=== PATIENT | male | born 1965 | race Caucasian/White ===

== ENCOUNTER 2020-01-14 10:21 | Emergency (ER) | payer OTHER, SELFPAY ==
[2020-01-14 10:32] VITALS: BMI 25.7
[2020-01-14 10:36] VITALS: BP 164/96; PULSE 84; RESP 18; TEMP 37; O2SAT 94
[2020-01-14 10:48] VITALS: O2SAT 94
--- NOTE | 2020-01-14 12:08 | W.ED.GENADLT ---
HPI - General Adult General: Chief complaint: General Medical Stated complaint: etoh/asking for help Time Seen by Provider: 01/14/20 11:04 History of Present Illness: HPI narrative: 54-year-old male into the emergency department with concerns of alcohol abuse. He wants to seek inpatient treatment for his alcohol abuse. He has had longstanding alcoholism he drinks 1 to 2 pints of vodka daily. He is done so for quite some time he is homeless and has had a DUI and readily admits that his life is in shambles due to his alcohol abuse. His last drink was this morning. He had quite a bit of vodka. Associated symptoms: Reports nausea; Deny chest pain, dyspnea, headache(s) or vomiting Review of Systems General: Reports: 10 or more systems reviewed and unremarkable except in HPI and below Const: Denies: fever(s) Eyes: Denies: change in vision ENMT: Denies: throat pain Card: Denies: chest pain Resp: Denies: dyspnea GI: Reports: nausea; Denies: vomiting : Denies: flank pain or difficulty urinating Neuro: Reports: difficulty communicating thoughts; Denies: headache(s), numbness in extremities, weakness in extremities or dizziness Physical Exam Const: COMMON NORMALS: no acute distress, average body habitus, patient oriented x3, no limitations, healthy appearing, alert and well nourished HENMT: COMMON NORMALS: normocephalic HEAD & SCALP: normocephalic Eye: COMMON NORMALS: Equal, round and reactive pupils present, EOMs intact bilaterally and conjunctivae normal CONJUNCTIVA: Yes conjunctivae normal PUPIL: Yes Equal, round and reactive pupils present Neck/C-Spine: COMMON NORMALS: full ROM, no lymphadenopathy, supple, no meningeal signs, no JVD, Thyroid normal and No carotid bruits THYROID: Thyroid normal Chest: COMMONS NORMALS: normal inspection of the chest and normal palpation of entire chest wall Resp: COMMON NORMALS: normal respiratory effort, No retractions, No use of accessory muscles, clear to auscultation bilaterally and percussion normal AUSCULTATION: clear to auscultation bilaterally PERCUSSION: percussion normal Cardio: COMMON NORMALS: no JVD GI: COMMON NORMALS: Normal to inspection, nondistended, normoactive bowel sounds present, Soft to palpation, non-tender, No hepatosplenomegaly present, no masses and no bruits PALPATION: Yes Soft to palpation and Yes No hepatosplenomegaly present : COMMON NORMALS: Yes no CVA tenderness BLADDER/KIDNEY EXAM: Yes no CVA tenderness Back/Pelvis: COMMON NORMALS: no CVA tenderness Extremity: COMMON NORMALS: normal to inspection, full ROM, capillary refill normal, no joint enlargement, no clubbing, cyanosis or edema, no calf tenderness and no pedal edema Neuro: COMMON NORMALS: patient oriented x3 SENSORIUM/ORIENTATION: Yes alert MENINGEAL SIGNS: Yes no meningeal signs Skin: COMMON NORMALS: no rashes or lesions noted, no wounds, turgor normal, no jaundice, no petechiae and no mottling GENERAL SKIN EXAM: no rashes or lesions noted and turgor normal Course Vital Signs: Vital signs: Vital Signs Temperature 98.6 F 01/14/20 10:36 Pulse Rate 86 01/14/20 14:16 Respiratory Rate 18 01/14/20 10:36 Blood Pressure 144/79 01/14/20 14:16 Pulse Oximetry 93 01/14/20 14:16 MDM - General Adult MDM Narrative: Medical decision making narrative: 54-year-old male with longstanding history of alcoholism he appears somewhat intoxicated today. Check routine labs and blood alcohol. Patient is significantly intoxicated with blood alcohol level of 217. He has some other mild lab abnormalities I have asked him to use Librium in place of alcohol and seek outpatient treatment we talked about return precautions and indications for admission to the hospital which he currently does not meet with his stable vital signs and labs. Lab Data: Labs: Lab Results 01/14/20 01/14/20 01/14/20 Range/Units 13:03 13:03 13:33 WBC 7.4 (4.0-10.0) 10^3/ uL RBC 4.20 (4.1-5.3) 10^6/u L Hgb 15.1 (11.7-16.6) g/dL Hct 44.6 (42.0-52.0) % MCV 106.2 H (80-94) fL MCH 36.0 H (28.0-34.0) pg MCHC 33.9 (30.0-36.0) g/dL RDW 13.8 (12.1-15.1) % Plt Count 186 (130-400) 10^3/c mm MPV 11.1 H (7.4-10.4) fL Neut % (Auto) 65.7 % Lymph % (Auto) 22.4 % [place] % (Auto) 10.7 % Eos % (Auto) 0.3 % Baso % (Auto) 0.4 % Neut # (Auto) 4.84 (1.8-7.7) 10^3/u L Lymph # (Auto) 1.7 (0.8-4.8) 10^3/u L [place] # (Auto) 0.8 (0.2-0.9) 10^3/u L Eos # (Auto) 0.0 (0.0-0.8) 10^3/u L Baso # (Auto) 0.0 (0.0-0.1) 10^3/u L Nucleated RBC % (a uto) 0 % Nucleated RBCs # 0.0 /100WBC Sodium 130 L (136-145) mmol/L Potassium 5.3 H (3.5-5.1) mmol/L Chloride 91 L (98-107) mmol/L Carbon Dioxide 16 L (22-29) mmol/L Anion Gap 28.3 H (5-19) BUN 9 (6-20) mg/dL Creatinine 0.5 L (0.7-1.2) mg/dL GFR Calculation 173.3 H (90-130) mL/min Glucose 72 (65-115) mg/dL POC Glucose (70-110) mg/dL Calculated Osmolal ity 265 L (285-295) mOsm/k g Calcium 8.5 (8.5-10.5) mg/dL Total Bilirubin 0.3 (0.15-1.2) mg/dL AST 73 H (0-40) U/L ALT 131 H (0-41) U/L Alkaline Phosphata se 76 (40-130) IU/L Total Protein 8.0 (6.6-8.7) g/dL Albumin 5.1 (3.5-5.2) g/dL Globulin 2.9 (1.3-4.6) g/dL Lipase 27 (13-60) U/L Urine Opiates Scre en Negative (Negative) ng/mL Ur Barbiturates Sc reen Negative (Negative) ng/mL Ur Phencyclidine S crn Negative (Negative) ng/mL Ur Amphetamines Sc reen Negative (Negative) ng/mL U Benzodiazepines Scrn Negative (Negative) ng/mL Urine Cocaine Scre en Negative (Negative) ng/mL U Marijuana (THC) Screen Negative (Negative) ng/mL Ethyl Alcohol 217 H (0-10) mg/dL 01/14/20 Range/Units 13:59 WBC (4.0-10.0) 10^3/ uL RBC (4.1-5.3) 10^6/u L Hgb (11.7-16.6) g/dL Hct (42.0-52.0) % MCV (80-94) fL MCH (28.0-34.0) pg MCHC (30.0-36.0) g/dL RDW (12.1-15.1) % Plt Count (130-400) 10^3/c mm MPV (7.4-10.4) fL Neut % (Auto) % Lymph % (Auto) % [place] % (Auto) % Eos % (Auto) % Baso % (Auto) % Neut # (Auto) (1.8-7.7) 10^3/u L Lymph # (Auto) (0.8-4.8) 10^3/u L [place] # (Auto) (0.2-0.9) 10^3/u L Eos # (Auto) (0.0-0.8) 10^3/u L Baso # (Auto) (0.0-0.1) 10^3/u L Nucleated RBC % (a uto) % Nucleated RBCs # /100WBC Sodium (136-145) mmol/L Potassium (3.5-5.1) mmol/L Chloride (98-107) mmol/L Carbon Dioxide (22-29) mmol/L Anion Gap (5-19) BUN (6-20) mg/dL Creatinine (0.7-1.2) mg/dL GFR Calculation (90-130) mL/min Glucose (65-115) mg/dL POC Glucose 77 (70-110) mg/dL Calculated Osmolal ity (285-295) mOsm/k g Calcium (8.5-10.5) mg/dL Total Bilirubin (0.15-1.2) mg/dL AST (0-40) U/L ALT (0-41) U/L Alkaline Phosphata se (40-130) IU/L Total Protein (6.6-8.7) g/dL Albumin (3.5-5.2) g/dL Globulin (1.3-4.6) g/dL Lipase (13-60) U/L Urine Opiates Scre en (Negative) ng/mL Ur Barbiturates Sc reen (Negative) ng/mL Ur Phencyclidine S crn (Negative) ng/mL Ur Amphetamines Sc reen (Negative) ng/mL U Benzodiazepines Scrn (Negative) ng/mL Urine Cocaine Scre en (Negative) ng/mL U Marijuana (THC) Screen (Negative) ng/mL Ethyl Alcohol (0-10) mg/dL Discharge Plan Discharge Patient Disposition: Home, Self-Care Clinical Impression: Alcoholism Condition: Stable Prescriptions: New chlordiazepoxide HCl 25 mg capsule 25 mg PO Q8H PRN (Reason: alcohol withdrawal) Qty: 30 RF: 0 No Action No Known Home Medications RF: 0 Discharge Orders: Discharge Order (Routine); Ordered 01/14/20 Ordered By: Husam Landrum Referrals: Genaro Blunt MD [Primary Care Provider] - Discharge Diet: Advance as tolerated Discharge Activity: Resume usual activity Patient Instructions: Abuse of Alcohol (ED), Alcohol Withdrawal (ED) Discharge Date/Time: 01/14/20 14:16 Coding Level of Care Code ED Field Marketing Team Leader for Adileneg Fwd Exam Comprehensive
[2020-01-14 13:13] LABS: Basophils % 0.4 %; Eosinophils % 0.3 %; Hematocrit 44.6 % (42.0-52.0); Hemoglobin 15.1 g/dL (11.7-16.6); Lymphocytes # 1.7 10^3/uL (0.8-4.8); Lymphocytes % 22.4 %; Mean Corpuscular HGB Conc 33.9 g/dL (30.0-36.0); Mean Corpuscular Volume 106.2 fL (80-94); Mean Platelet Volume 11.1 fL (7.4-10.4); Monocytes # 0.8 10^3/uL (0.2-0.9); Monocytes % 10.7 %; Neutrophils # 4.84 10^3/uL (1.8-7.7); Neutrophils % 65.7 %; Nucleated Red Blood Cells % 0 %; Platelet Count 186 10^3/cmm (130-400); Red Cell Distribution Width 13.8 % (12.1-15.1); White Blood Count 7.4 10^3/uL (4.0-10.0)
[2020-01-14] MEDS: sodium chloride 0.9% 1,000 ML 999 ML IV (13:23)
[2020-01-14] MEDS: LORazepam 2 mg/mL INJ 1 mL 1 MG IVP (13:23)
[2020-01-14 13:28] VITALS: BP 148/100; PULSE 95; O2SAT 93
[2020-01-14 13:29] LABS: Alanine Aminotransferase 131 U/L (0-41); Albumin Level 5.1 g/dL (3.5-5.2); Alcohol Level 217 mg/dL (0-10); Alkaline Phosphatase 76 IU/L (40-130); Anion Gap 28.3 (5-19); Aspartate Amino Transferase 73 U/L (0-40); Blood Urea Nitrogen 9 mg/dL (6-20); Calcium 8.5 mg/dL (8.5-10.5); Carbon Dioxide 16 mmol/L (22-29); Chloride 91 mmol/L (98-107); Globulin 2.9 g/dL (1.3-4.6); Glomerular Filtration Rate 173.3 mL/min (90-130); Glucose 72 mg/dL (65-115); Lipase 27 U/L (13-60); Osmolality Calculated 265 mOsm/kg (285-295); Potassium 5.3 mmol/L (3.5-5.1); Sodium 130 mmol/L (136-145); Total Bilirubin 0.3 mg/dL (0.15-1.2)
[2020-01-14 13:51] LABS: Amphetamines Screen Urine Negative (Negative); Barbiturates Screen Urine Negative (Negative); Benzodiazepines Screen Urine Negative (Negative); Cocaine Screen Urine Negative (Negative); Opiate Screen Urine Negative (Negative); PCP Screen Urine Negative (Negative); THC Screen Urine Negative (Negative)
--- NOTE | 2020-01-14 14:01 | PC.NURSE ---
blood glucose is 77
[2020-01-14 14:03] LABS: Glucose Point of Care 77 mg/dL (70-110)
[2020-01-14 14:16] VITALS: BP 144/79; PULSE 86; O2SAT 93
== END 2020-01-14 14:16 | disposition home or self-care (01) ==
PROVIDERS: Emergency Provider Family Medicine; PCP Family Medicine
DX: F10.20 Alcohol dependence, uncomplicated (principal); Y90.9 Presence of alcohol in blood, level not specified
CPT/HCPCS: 12345; 36416; 80053; 80306; 80307; 82962; 83690; 85025; 96361; 96374; 96375; 99283; J2060; J7030

== ENCOUNTER 2023-07-04 20:11 | Inpatient (IN) | payer MEDICAID, SELFPAY ==
[2023-07-04 20:13] VITALS: BP 118/67; PULSE 86; RESP 18; TEMP 36.6; O2SAT 100; BMI 25.7
--- NOTE | 2023-07-04 20:17 | ECG_ITS ---
[facility] Test Date: 2023-07-04 Pat Name: Ayaz Llanes Department: Room: Gender: Male Charge Weigher: : 1965 Requested By: Kaiser Kaplan Order Number: [id number] May MD: Anish Rocha M.D. Measurements Intervals [place] Rate: 71 P: 9 [place]: 146 QRS: 56 QRSD: 90 T: 78 QT: 358 QTc: 390 Interpretive Statements SINUS RHYTHM NONSPECIFIC ST & T-WAVE ABNORMALITY No previous ECG available for comparison Electronically Signed On 07-05-2023 3:55:10 PROFESSOR OF GEOGRAPHY by Anish Rocha M.D. [id number]
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
--- NOTE | 2023-07-04 20:25 | ECG_ITS ---
[facility] Test Date: 2023-07-04 Pat Name: Ayaz Llanes Department: Room: Gender: Male Insulation Nozzleman: : 1965 Requested By: Kaiser Kaplan Order Number: [id number] Lalo MD: Anish Rocha M.D. Measurements Intervals [place] Rate: 72 P: 6 [place]: 140 QRS: 68 QRSD: 86 T: 83 QT: 365 QTc: 401 Interpretive Statements SINUS RHYTHM WITH OCCASIONAL SUPRAVENTRICULAR PREMATURE COMPLEXES POSSIBLE RIGHT VENTRICULAR CONDUCTION DELAY [RSR (QR) IN V1/V2] ST DEVIATION AND MODERATE T-WAVE ABNORMALITY, CONSIDER ANTERIOR ISCHEMIA [-0.1+ mV T-WAVE IN V3/V4] Compared to ECG 07/04/2023 20:17:31 Possible ischemia now present T-wave abnormality still present Electronically Signed On 07-05-2023 3:54:46 BAND SAW OPERATOR CAKE CUTTING by Anish Rocha M.D. [id number] f
--- NOTE | 2023-07-04 20:25 | XRR_ITS ---
PROCEDURE INFORMATION: Exam: XR Chest Exam date and time: 07/04/2023 9:13 PM Age: 57 years old Clinical indication: Chest wall pain; Patient HX: Sudden onset mediastinal chest pain; No cardiac HX; Smoker x 40yr TECHNIQUE: Imaging protocol: Radiologic exam of the chest. Views: 1 view. COMPARISON: No relevant prior studies available. FINDINGS: Lungs: No focal consolidation or evidence of airspace disease. Pleural spaces: No evidence of pneumothorax or pleural effusion Heart/Mediastinum: Cardiomediastinal silhouette is within normal limits. Bones/joints: No evidence of acute osseous abnormality. XR/XR chest 1V portable [id number] IMPRESSION: 1. No acute cardiopulmonary abnormality.
[2023-07-04 20:42] LABS: Basophils # 0.1 10^3/uL (0.0-0.1); Basophils % 0.5 %; Eosinophils # 0.1 10^3/uL (0.0-0.8); Eosinophils % 0.8 %; Hematocrit 40.1 % (37-53); Lymphocytes # 1.7 10^3/uL (0.8-4.8); Lymphocytes % 17.6 %; Mean Corpuscular HGB Conc 34.4 g/dL (30-55); Mean Corpuscular Hemoglobin 34.3 pg (27-33); Mean Corpuscular Volume 99.8 fl (82-101); Mean Platelet Volume 12.7 fL (7.4-10.4); Monocytes % 10.5 %; Neutrophils # 6.61 10^3/uL (1.8-7.7); Neutrophils % 70.3 %; Nucleated Red Blood Cells % 0 %; Platelet Count 216 10^3/cmm (157-399); Red Blood Count 4.02 10^6/uL (3.85-5.65); Red Cell Distribution Width 12.1 % (12.1-15.1); White Blood Count 9.42 10^3/uL (3.29-11.43)
[2023-07-04 20:49] LABS: INR 1.01 (0.8-1.2); Partial Thromboplastin Time 22.6 SECONDS (23.9-36.7)
[2023-07-04 20:56] LABS: Alanine Aminotransferase 16 U/L (0-41); Albumin Level 4.4 g/dL (3.5-5.2); Alkaline Phosphatase 48 U/L (40-130); Anion Gap 16.8 (5-19); Aspartate Amino Transferase 18 U/L (0-40); Blood Urea Nitrogen 14 mg/dL (6-20); Calcium 9.5 mg/dL (8.5-10.5); Carbon Dioxide 26 mmol/L (22-29); Chloride 102 mmol/L (98-107); Globulin 2.2 g/dL (1.3-4.6); Glucose 212 mg/dL (65-115); Osmolality Calculated 299 mOsm/kg (285-295); Potassium 3.8 mmol/L (3.5-5.1); Sodium 141 mmol/L (136-145); Total Bilirubin 0.3 mg/dL (0.15-1.2); Total Protein 6.6 g/dL (6.6-8.7)
[2023-07-04 20:57] LABS: Troponin(5th) Baseline 14 ng/L (0-15)
[2023-07-04] MEDS: heparin 5,000 unit/mL INJ 1 mL 4000 UNIT IVP (21:00)
[2023-07-04 21:03] VITALS: BP 116/74; PULSE 93; O2SAT 100
--- NOTE | 2023-07-04 21:03 | PC.NURSE ---
PATIENT HOOKED UP TO CONTINUOUS BEDSIDE CARDIAC MONITORING.
[2023-07-04 21:08] LABS: NT Pro B Type Natriuretic Pept 44 pg/mL (0-125)
[2023-07-04 21:17] VITALS: BP 116/74; PULSE 76; RESP 19; O2SAT 100
[2023-07-04 21:32] VITALS: RESP 20; O2SAT 100
[2023-07-04] MEDS: fentaNYL 50 mcg/mL INJ 2mL 25 MCG IVP (21:32)
[2023-07-04] MEDS: sodium chloride 0.9% 1,000 ML 999 ML IV (21:32)
[2023-07-04 21:34] VITALS: BP 129/70; PULSE 72
[2023-07-04] MEDS: nitroglycerin 1 gm/inch oint Pkt 1 INCH TOPICAL (21:34)
[2023-07-04] MEDS: heparin drip 25,000 UNIT/500 ML PREMIX 19.69 UNIT IV (21:42)
[2023-07-04 22:18] VITALS: BP 118/66; PULSE 75; RESP 22; O2SAT 99
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
[2023-07-04 22:51] LABS: Troponin 5 2HR 46.09 ng/L (0-15)
[2023-07-04 22:53] LABS: Troponin 5 2HR Delta 32.09 ABS# (0-10)
[2023-07-04] MEDS: HYDROmorphone 1 mg/mL INJ 1 mL 0.4 MG IVP (23:33)
[2023-07-04] MEDS: nitroglycerin drip 50 MG/250 ML PREMIX IV (23:41)
[2023-07-04] MEDS: aspirin 325 mg EC Tablet PO (23:42)
[2023-07-04] MEDS: clopidogrel 300 mg Tablet 600 MG PO (23:42)
[2023-07-05] VITALS (24 sets, daily range): BP systolic 92–124; BP diastolic 56–76; PULSE 56–89; RESP 5–25; TEMP 36.6–37.8; O2SAT 94–99; BMI 23.8
--- NOTE | 2023-07-05 00:03 | USCV_ITS ---
Ayaz Llanes Age: 57 Gender: M : 1965 Exam Date: 07/05/2023 07:47 Ordering Phys: Jairo Loyola MD Technologist: Lobito Pace Exam Location: [facility] [place] Indication: Nstemi BP: 115 / 70 HR: 85 Rhythm: Sinus Technical Quality: Adequate MEASUREMENTS (Male / Female) Normal Values 2D ECHO LVOT Diameter 2.0 cm LV Ejection Fraction MOD 2C 55.2 % LV Ejection Fraction 2C AL 58.4 % LA Diameter 3.3 cm LA Width 3.4 cm LA Height 3.8 cm RA Width 4.2 cm RA Height 3.9 cm Aorta at Sinotubular Diameter 2.7 cm IVC Diameter 1.6 cm M-MODE Aortic Annulus Diameter 3.6 cm LA Ao Ratio MM 0.9 MV E Point Septal Separation 0.7 cm DOPPLER AV Peak Velocity 131.0 cm/s LVOT Peak Velocity 115.0 cm/s AV Area Cont Eq vti 3.5 cm squared AV Area Cont Eq pk 2.8 cm squared MV Peak Velocity 121.0 cm/s MV Area PHT 5.0 cm squared Mitral E to A Ratio 1.0 MV E' Velocity 47.0 cm/s Mitral E to MV E' Ratio 7.2 Mitral E to LV E' Lateral Ratio 8.0 Mitral E to LV E' Septal Ratio 6.6 Right Atrial Pressure 3.0 mmHg PV Peak Velocity 103.7 cm/s RV Acceleration Time 0.1 s RV Ejection Time 0.3 s RV AcT/ET 0.4 FINDINGS Left Ventricle Left ventricle is normal in size. LV systolic function is normal with EF of 55 to 60%. No regional wall motion abnormalities are seen. Right Ventricle Normal in size and function Right Atrium Normal in size Left Atrium Normal in size Mitral Valve Structurally normal mitral valve. Mild mitral regurgitation is seen. Aortic Valve Structurally normal aortic valve. No significant stenosis or regurgitation. Tricuspid Valve Mild tricuspid regurgitation. Insufficient TR jet to calculate RVSP. Pulmonic Valve Not well-visualized. Pericardium Normal Aorta Normal in size IVC Appears to be normal CONCLUSIONS LV systolic function is normal with EF 55 to 60%. Mild mitral regurgitation. Mild tricuspid regurgitation. No comparison studies are available Anish Rocha MD (Electronically Signed) Final Date: 05 July 2023 10:31 S
[2023-07-05 01:41] LABS: D Dimer 0.31 ug/mLFEU (0-0.59)
[2023-07-05 01:44] LABS: Estmated Average Glucose 120; Hemoglobin A1C 5.8 % (4.0-6.0)
[2023-07-05 01:53] LABS: Thyroid Stimulating Hormone 1.24 uIU/mL (0.27-4.20)
[2023-07-05 01:54] LABS: Alcohol Level < 10 mg/dL (0-10)
[2023-07-05 02:07] LABS: Basophils % 0.2 %; Eosinophils % 0.1 %; Hematocrit 35.1 % (37-53); Lymphocytes # 0.7 10^3/uL (0.8-4.8); Lymphocytes % 6.8 %; Mean Corpuscular HGB Conc 34.5 g/dL (30-55); Mean Corpuscular Hemoglobin 34.7 pg (27-33); Mean Corpuscular Volume 100.6 fl (82-101); Mean Platelet Volume 12.5 fL (7.4-10.4); Monocytes # 0.7 10^3/uL (0.2-0.9); Monocytes % 6.2 %; Neutrophils # 9.05 10^3/uL (1.8-7.7); Neutrophils % 86.5 %; Nucleated Red Blood Cells % 0 %; Platelet Count 187 10^3/cmm (157-399); Red Blood Count 3.49 10^6/uL (3.85-5.65); Red Cell Distribution Width 12.1 % (12.1-15.1); White Blood Count 10.46 10^3/uL (3.29-11.43)
[2023-07-05 02:24] LABS: Vitamin B12 513 pg/mL (232-1245)
--- NOTE | 2023-07-05 02:25 | ECG_ITS ---
[facility] Test Date: 2023-07-04 Pat Name: Ayaz Llanes Department: Room: 112 Gender: Male Instrumentation Chemist: : 1965 Requested By: Kaiser Kaplan Order Number: [id number] Lalo MD: Anish Rocha M.D. Measurements Intervals [place] Rate: 69 P: 65 [place]: 164 QRS: 64 QRSD: 85 T: 79 QT: 366 QTc: 394 Interpretive Statements SINUS RHYTHM WITH SINUS ARRHYTHMIA POSSIBLE RIGHT VENTRICULAR CONDUCTION DELAY [RSR (QR) IN V1/V2] NONSPECIFIC T-WAVE ABNORMALITY Compared to ECG 07/04/2023 20:24:35 Possible ischemia no longer present T-wave abnormality still present Electronically Signed On 07-05-2023 3:55:02 SEAM HAMMERER by Anish Rocha M.D. [id number]
[2023-07-05 02:29] LABS: Anion Gap 15.6 (5-19); Blood Urea Nitrogen 13 mg/dL (6-20); Carbon Dioxide 20 mmol/L (22-29); Chloride 101 mmol/L (98-107); Glomerular Filtration Rate 116.2 mL/min (90-130); Glucose 143 mg/dL (65-115); Magnesium 1.9 mg/dL (1.7-2.3); Osmolality Calculated 279 mOsm/kg (285-295); Potassium 3.6 mmol/L (3.5-5.1); Sodium 133 mmol/L (136-145)
[2023-07-05 02:30] LABS: Troponin 5 6HR 223.7 ng/L (0-15)
[2023-07-05 02:32] LABS: Troponin 5 6HR Delta 209.7 ng/L (0-12)
--- NOTE | 2023-07-05 02:45 | PC.NURSE ---
nurse received critical trop result, notified physician. stated he would come see the pt. he then calls cardiology who orders a new EKG. laborer wood preserving plant team called in for procedure. pt consented by and pt is prepped for cath.
--- NOTE | 2023-07-05 03:00 | ECG_ITS ---
[facility] Test Date: 2023-07-05 Pat Name: Ayaz Llanes Department: Room: 112 Gender: Male Rn Delivery: : 1965 Requested By: Jairo Loyola Order Number: [id number] Lalo MD: Anish Rocha M.D. Measurements Intervals [place] Rate: 56 P: 67 [place]: 162 QRS: 60 QRSD: 84 T: 54 QT: 409 QTc: 397 Interpretive Statements SINUS BRADYCARDIA WITH MARKED SINUS ARRHYTHMIA POSSIBLE RIGHT VENTRICULAR CONDUCTION DELAY [RSR (QR) IN V1/V2] Compared to ECG 07/04/2023 22:10:44 Sinus rhythm no longer present T-wave abnormality no longer present Electronically Signed On 07-05-2023 3:54:34 CLOTH FINISHING RANGE TENDER by Anish Rocha M.D. [id number]
[2023-07-05] MEDS: ondansetron 2 mg/ML SDV 2 mL 4 MG IVP (03:14)
--- NOTE | 2023-07-05 03:32 | XACV_ITS ---
Exam Room: [facility] Ht: 165 cm Wt: 65 kg BSA: 1.73 m2 Gender: Male : 1965 Any Known Allergies: No known allergies Exam Priority: Routine Indication(s): - NSTEMI Procedure(s): Procedure Description: Diagnostic procedure Procedure Description: PCI procedure Procedure Description: Drug Eluting Coronary Stent Procedure Description: PTCA Procedure Description: Miscellaneous Procedure Description: ACT Procedure Description: Coronary Angiography Diagnostic Cath Status: Urgent Diagnostic Findings * INDICATION: 57 year old male with history of smoking and no significant prior cardiac history has presented with acute onset chest pain. At the time he started having chest pain, he was doing physical exertion and cold weather. Substernal severe chest pain. He was started on nitro drip in the ER however has not helped his pain. His troponin level has increased from baseline of 14-223 at 6 hours. Still complaining of 8/10 chest pain. EKG showed dynamic changes. Given non-resolution of chest pain on nitro drip and dynamic EKG changes we decided to activate cardiac Uniform Force Captain urgently. * Left Main has no significant disease. * Mid Left Anterior Descending: severe 70% stenosis, REILLY: 3 flow. * RCA has diffuse luminal irregularities. * PLV has critical 99% stenosis. This is culprit lesion for non-ST elevation CT. REILLY:2 flow. * Proximal Circumflex to Mid Circumflex: significant 80% stenosis, REILLY: 3 flow. * Coronary angiography shows right dominance. PCI Status: Urgent PCI Indication: NSTE - ACS Interventional Findings * PLV: 99% stenosis treated with a MDT R TAL 2.5X15 LADAN, and AB MINI TREK 2.00X12 RX BALLOON. 0% residual stenosis, REILLY: 3 flow. * PROCEDURE DETAIL: We engaged RCA with JR4 guide catheter. IV heparin was administered to maintain anticoagulation. 0.014 run-through guidewire was used to cross the subtotally occluded critical PLV stenosis and was put in distal vessel. We then proceeded with direct stenting of the vessel with 2.5 x 15 mm resolute Tal drug-eluting stent. Further distal in the vessel there was another stenosis noted. We dilated with 2.0 x 12 mm semicompliant balloon. Given small size of the distal vessel, it was not stented. We then turned our attention to proximal to mid left circumflex artery stenosis. Left main artery was engaged with XB 3.0 guide catheter. Using 0.014 run-through guidewire we crossed the stenosis and placed a wire in distal vessel. Lesion was predilated with a 2.5 x 15 mm semicompliant balloon. This was followed by placement of 3.0 x 26 mm resolute [place] drug-eluting stent. At distal edge of the stent there was some residual stenosis. We placed a second stent measuring 2.5 x 18 mm resolute [place] overlapping with the first stent. At this time final angiogram was performed that showed excellent stent expansion, no residual stenosis and REILLY-3 flow. Guidewire and guide catheter were removed. Patient left the Uniform Force Captain in a stable condition.. * Proximal Circumflex to Mid Circumflex: 80% stenosis treated with a AB TREK 2.50X15 RX BALLOON, and MDT R TAL 3.0X26 LADAN. 0% residual stenosis, REILLY: 3 flow. * Mid Circumflex: 70% stenosis treated with a MDT R TAL 2.5X18 LADAN. 0% residual stenosis, REILLY: 3 flow. Conclusions 1. Critical PLV stenosis s/p successful revascularization with 1 stent. Severe proximal to mid left circumflex artery stenosis s/p successful revascularization with 2 stents. Severe mid LAD stenosis. Plan for staged PCI.. 2. Distal Right Coronary Artery was treated with a Drug Eluting Stent, and Balloon. 3. Proximal Circumflex to Mid Circumflex was treated with a Balloon, and Drug Eluting Stent. 4. Mid Circumflex was treated with a Drug Eluting Stent. Recommendations * Dual antiplatelet therapy with aspirin Plavix for at least 1 year. * High intensity statin therapy. * Staged PCI of mid LAD in 2-3 days. * Outpatient cardiology follow up in 4 weeks. Interventional RX Recommendation: PCI w/o planned CABG Diagnostic RX Recommendation: PCI w/o planned CABG Anticoagulation: Heparin Pressures Phase:Rest AO : 110 / 73 ( 84 ) @ 4:10:00 AM 101 / 72 ( 87 ) @ 4:11:00 AM 132 / 65 ( 76 ) @ 4:34:00 AM 97 / 68 ( 82 ) @ 4:45:00 AM 99 / 60 ( 77 ) @ 4:52:00 AM 100 / 64 ( 82 ) @ 4:57:00 AM 103 / 65 ( 83 ) @ 5:06:00 AM Clinical Evaluation EBL: 5mL-10mL Procedural Details Procedure Consent Obtained. Pre-Procedure Time Out. Identified patient by full name and date of as verbalized by the patient/guarantor. Does the consent match the physician's order: Yes. Accurate & Complete Informed Consent: Yes. Inpatient/Outpatient History & Physical on Chart: Yes. If H&P is completed, is and addenduem needed: No; If yes, is the addendum complete: N/A. Visualize and Verify Site with Patient/Guarantor: N/A. Relevant Radiology Images available: N/A. Pre-op teaching completed and patient verbalized understanding. The risks, benefits, and alternatives of sedation and/or procedure were discussed by physician. The patient agrees to continue. Procedure started. [facility] Clinical Fraility Score: 3: Managing Well. Uniform Force Captain Indications: Worsening Angina. Chest Pain Symptom Assessment: Typical Angina Symptoms. Cardiovascular Instability: Yes, if yes, Persistant Ischemic Symptoms. Correct patient, site and procedure confirmed by cath team. Current diagnosis: NSTEMI. PERRLA. Strong, equal hand dry dip worker bilaterally. Lungs clear x 5 lobes. IV Site on Arrival: 20 gauge in the right anticubital. IV Fluids: 0.9% NaCl at KVO. 0 mL infused prior to grinding and polishing laborer. Pre Procedural Pulses: right radial was 2+. Pre Procedural Pulses: bilateral dorsalis pedis was 2+. Oxygen started at 2liters/min via nasal canula. right groin was prepped with chloroprep then draped in the usual sterile fashion. right radial was prepped with chloroprep then draped in the usual sterile fashion. Physician notified. Baseline sample Acquired. HR: 67 BPM. Physician arrived. Physician scrubbed in. Immediate Pre-Procedure Time Out. Correct Patient: Yes; Correct Procedure: Yes; Correct Site: Yes; Correct Patient Position: Yes; Correct Supplies: Yes; Dried Flammable Prep: Yes; Blood Products Available: N/A;. Admit Source: In Patient. Lidocaine 1% infiltrated to the right radial. A 5 emirati TIG catheter in over wire. Arterial access obtained. Multiple views taken of left coronary artery. Catheter redirected to the RCA. Catheter out. Multiple views taken of right coronary artery. Equipment: 6F - Radial. 6 emirati JR 4 guide catheter was inserted over the wire. ACT drawn. Results 224 seconds. Therapeutic limits - pre-heparin administration 90-150 seconds and monitoring heparin during a vascular procedure >250 seconds. Runthrough guidewire was advanced through the guide catheter to lesion in the distal RCA. Runthrough guidewire was advanced through the guide catheter to lesion in the distal RCA. Current Diagnosis : NSTEMI. ACT drawn. Results 269 seconds. Therapeutic limits - pre-heparin administration 90-150 seconds and monitoring heparin during a vascular procedure >250 seconds. 1st Runthrough wire removed. Stent inserted to lesion in the distal RCA. Inflation Number : 1 A SHANI Gomez TAL 2.5X15 LADAN -Lot Number# [id number] Exp 11/23/2025 was prepped and advanced across the Dist RCA. The stent was deployed at 12 WILMA for 0:20 seconds. Stent balloon out over wire. Results checked. Balloon inserted to lesion in the distal RCA. Inflation number : 2 A AB MINI TREK 2.00X12 RX BALLOON was prepped and advanced across the Dist RCA , then inflated to 8 WILMA for 0:10 seconds. Inflation number: 3 The AB MINI TREK 2.00X12 RX BALLOON was reinflated across the Dist RCA, to 8 WILMA for 0:08 seconds. Balloon out. Results checked. Guidewire removed. Guide catheter out. 6 emirati XB 3 guide catheter was inserted over the wire. ACT drawn. Results 386 seconds. Therapeutic limits - pre-heparin administration 90-150 seconds and monitoring heparin during a vascular procedure >250 seconds. Runthrough guidewire was advanced through the guide catheter to lesion in the prox Circ. Inflation number : 1 A AB TREK 2.50X15 RX BALLOON was prepped and advanced across the Prox CX , then inflated to 8 WILMA for 0:16 seconds. Balloon inserted to lesion in the prox Circ. Inflation number: 2 The AB TREK 2.50X15 RX BALLOON was reinflated across the Prox CX, to 8 WILMA for 0:10 seconds. Balloon out. Results checked. Stent inserted to lesion in the prox Circ. Inflation Number : 3 A MDT R TAL 3.0X26 LADAN -Lot Number# [id number] Exp 11/17/2023 was prepped and advanced across the Prox CX. The stent was deployed at 12 WILMA for 0:20 seconds. Stent balloon and wire out. Results checked. Stent inserted to lesion in the mid Circ. Inflation Number : 1 A MDT R TAL 2.5X18 LADAN -Lot Number# [id number] Exp 10/16/2025 was prepped and advanced across the Mid CX. The stent was deployed at 12 WILMA for 0:18 seconds. Stent balloon out over wire. Results checked. ACT drawn. Results out of range high. Therapeutic limits - pre-heparin administration 90-150 seconds and monitoring heparin during a vascular procedure >250 seconds. Wire out. Guide catheter out. Physician scrubbed out. A TR Band was successful obtaining hemostatsis at the Right Radial artery insertion site. Post Procedure: Pulses reassessed and unchanged. PERRLA. Strong, equal hand dry dip worker bilaterally. No VTE prophylaxis required. Medication's Wasted: Nitro = 49.4 mg. Medication's Wasted: Lidocaine 1% = 2 mL. Total IV fluids: 319 mL. PCI Indication: NSTE. Post-op diagnosis: Severe CAD S/P successful stenting Distal RCA, Prox Circ, Mid Circ. Complications: none. Estimated blood loss: 5mL-10mL. Responsiveness - Normal response to verbal stimuli; alert and oriented, PERRLA. Airway - Unaffected, no intervention required; spontaneous ventilation. Circulation: W/N/L, pulses unchanged. Nausea/Vomiting: No. Procedure completed. Patient transferred by bed to 1st floor. Vital chart was stopped. Access Site Site: Right Radial artery Sheath Size: 6 Fr Hemostasis Method: TR Band Hemostasis Success: Successful Procedure Medications Start: 3:59 AM Stop: 3:59 AM Medication: Versed Amount: 1 mg Route: I.V. Start: 3:59 AM Stop: 3:59 AM Medication: Fentanyl Amount: 50 mcg Route: I.V. Start: 4:05 AM Stop: 4:05 AM Medication: Heparin Amount: 2000 units Route: I.V. Start: 4:04 AM Stop: 4:04 AM Medication: Versed Amount: 1 mg Route: I.V. Start: 4:05 AM Stop: 4:05 AM Medication: Nitrogylcerin Amount: 200 mcg Route: I.A. Start: 4:09 AM Stop: 4:09 AM Medication: Heparin Amount: 2000 units Route: I.V. Start: 4:30 AM Stop: 4:30 AM Medication: Versed Amount: 1 mg Route: I.V. Start: 4:30 AM Stop: 4:30 AM Medication: Heparin Amount: 1000 units Route: I.V. Start: 4:33 AM Stop: 4:33 AM Medication: Nitrogylcerin Amount: 200 mcg Route: I.C. Start: 4:39 AM Stop: 4:39 AM Medication: Heparin Amount: 1000 units Route: I.V. Start: 4:40 AM Stop: 4:40 AM Medication: Fentanyl Amount: 25 mcg Route: I.V. Start: 4:40 AM Stop: 4:40 AM Medication: Versed Amount: 1 mg Route: I.V. Start: 4:45 AM Stop: 4:45 AM Medication: 0.9% Saline Amount: 250 ml Route: I.V. bolus Start: 4:49 AM Stop: 4:49 AM Medication: Nitrogylcerin Amount: 200 mcg Route: I.A. Start: 5:03 AM Stop: 5:03 AM Medication: Fentanyl Amount: 25 mcg Route: I.V. I, the attending physician, have reviewed and verified all procedure medications. Yes, all medications given per verbal order History/Risk Factors Hypertension: No Dyslipidemia: No Peripheral Arterial Disease (PAD): No Myocardial Infarction (CT): No Obesity: No Renal Disease: No Tobacco Use: Current/Recent(w/in 1 year) Prior Interventions PCI: No CABG: No Valve Surgery: No Report Signatures Finalized by Anish Rocha MD on 07/06/2023 03:43 PM
--- NOTE | 2023-07-05 03:40 | P.CONIM_ITS ---
Providers/Reason For Consult 2 Consulting Physician/Specialty*: Anish Rocha MD/ Cardiology Reason for Consult*: NSTEMI Requesting Physician: Dr Kaplan Attending Physician: Jairo Loyola MD Primary Care Provider: Genaro Blunt MD History of Present Illness History of Present Illness Ayaz Llanes is a 57 year old male with history of smoking and no significant prior cardiac history has presented with acute onset chest pain. At the time he started having chest pain, he was doing physical exertion and cold weather. Substernal severe chest pain. He was started on nitro drip in the ER however has not helped his pain. His troponin level has increased from baseline of 14- 223 at 6 hours. Still complaining of 8/10 chest pain. EKG showed dynamic changes. Review of Systems 2 Const: Reports: chills and change in weight Eyes: Denies: change in vision ENMT: Denies: throat pain Card: Reports: chest pain Resp: Denies: dyspnea GI: Denies: abdominal pain : Denies: flank pain Musc: Denies: joint pain Medications/Allergies Home Medications Medication Instructions Recorded Confirmed Last Taken Type No Known Home Medications 01/14/20 01/14/20 Unknown History Allergies Allergy/AdvReac Type Severity Reaction Status Date / Time No Known Allergies Allergy Verified 01/14/20 10:36 Current Medications Generic Name Dose Route Start Last Admin Trade Name Freq PRN Reason Stop Dose Admin Heparin Sodium/Sodium Chloride 25,000 unit in 500 mls @ 19.686 mls/hr 07/04/23 21:30 07/04/23 21:42 Heparin Drip IV 14 unit/kg/hr .Q24H PAVAN 19.69 mls/hr Administration 14 UNIT/KG/HR Nitroglycerin/Dextrose 50 mg in 250 mls @ 0 mls/hr 07/04/23 23:00 07/05/23 03:15 Nitroglycerin Drip IV 20 mcg/min .Q0M PAVAN 6 mls/hr Titration Protocol Per Protocol Ondansetron HCl 4 mg 07/05/23 00:03 07/05/23 03:14 Ondansetron 2 Mg/Ml Sdv 2 Ml IVP 4 mg Q6H PRN Administration NAUSEA AND VOMITING PFSH Acute 2 PFSH: Medical History Alcohol abuse No pertinent past medical history Surgical History No history of previous surgery No pertinent past surgical history Social History Smoking and tobacco/nicotine status: current every day tobacco/nicotine user Alcohol intake: current Alcohol intake frequency: holidays/special occasions only Vitals/I&O/Wt Last Vital Signs Temp 97.8 F 07/04/23 20:13 Pulse 59 L 07/05/23 00:40 Resp 18 07/05/23 00:00 BP 119/71 07/05/23 00:40 Pulse Ox 98 07/05/23 00:40 O2 Del Method Room Air 07/05/23 00:49 07/04/23 07/04/23 07/05/23 14:59 22:59 06:59 Intake Total 1018.2 / 1018.2 Balance 1018.2 / 1018.2 Weight last 48 hrs Weight 143 lb 1.6 oz Weight 155 lb Physical Exam 2 Narrative: GENERAL: Patient is alert, awake and oriented x3. [] NECK: No jugular vein distension. [] HEENT: No cyanosis. No icterus. No pallor. [] HEART: Regular S1 and S2. No murmur, rub or gallop. [] LUNGS: Clear to auscultate bilaterally. [] CENTRAL NERVOUS SYSTEM: Grossly nonfocal. [] EXTREMITIES: Lower extremities with 1+ edema bilaterally. Data 07/05/23 01:59 07/05/23 01:59 A&P Assessment and plan (1) Acute non-ST elevation myocardial infarction (NSTEMI): (2) Chest pain: Qualifiers: Chest pain type: chest pain due to myocardial ischemia Ischemic chest pain type: unstable angina pectoris Qualified Code(s): I20.0 - Unstable angina (3) Tobacco abuse: Plan Patient has presented with acute non-ST elevation DE. Chest pain is persistent even after uptitration of nitro drip. EKG changes dynamic. Had ST depressions in anterolateral leads. ST changes were also seen in the inferior leads. We will proceed with urgent coronary angiography. Possible PCI. Risk and benefit of the procedure have been discussed with the patient in detail. Continue aspirin and Plavix. Continue heparin drip. Order echocardiogram. Thank you for involving us with care of this patient. We will continue to follow. Please call with questions. Consult Attestations 2 Medical Necessity Statement: Care expected to cross 2 midnights. Coding Level of Care Code Acute Code for [facility] Fwd Diagnoses Acute non-ST elevation myocardial infarction (NSTEMI) I21.4 Chest pain I20.0 Chest pain type: chest pain due to myocardial ischemia Ischemic chest pain type: unstable angina pectoris Tobacco abuse Z72.0
--- NOTE | 2023-07-05 03:50 | PC.NURSE ---
label cutter team taking pt to biology laboratory assistant at this time.
[2023-07-05 03:54] LABS: Amphetamines Screen Urine Negative (Negative); Barbiturates Screen Urine Negative (Negative); Benzodiazepines Screen Urine Negative (Negative); Cocaine Screen Urine Negative (Negative); Opiate Screen Urine Positive (Negative); PCP Screen Urine Negative (Negative); THC Screen Urine Negative (Negative)
--- NOTE | 2023-07-05 03:55 | W.PM.OPSUD ---
Surgery/Procedure H&P Update DATE OF PROCEDURE: July 05, 2023 DATE H&P PERFORMED: 07/05/23 H&P UPDATE INFORMATION: I have reviewed H&P completed within last 30 days, I have examined patient prior to procedure and No changes to prior documentation PREOP DIAGNOSIS: NSTEMI PRIMARY INDICATION FOR PROCEDURE: NSTEMI PLANNED PROCEDURE: Left heart cath with possible percutaneous coronary intervention PATIENT REASSESSED PRIOR TO SEDATION, WITH NO CHANGE NOTED: Yes PHYSICAL EXAM: alert, oriented x 3, clear to auscultation bilaterally and regular rate & rhythm AIRWAY EVAL/ANESTHESIA PLAN: normal airway, ASA III, Local Anesthesia, Risks, benefits & alternatives of sedation and/or procedure discussed and Patient agrees to continue as planned ADDITIONAL INFORMATION: Moderate sedation
[2023-07-05 04:20] LABS: Partial Thromboplastin Time 75.8 SECONDS (23.9-36.7)
--- NOTE | 2023-07-05 05:36 | PC.NURSE ---
floor received pt from microbiology lab analyst post left heart cath. pt alert and oriented x3. pt complains of no pain. tr band present on right wrist with distal pulses palpable. no brusing or hematoma noted. pt on telemetry and will be monitored per protocol. pt educated upon arrival to the floor about recovery and restrictions of right wrist. pt stated understanding. nurse to continue to educated pt throughout recovery.
[2023-07-05] MEDS: sodium chloride 0.9% 1,000 ML 100 ML IV (06:00)
[2023-07-05] MEDS: pantoprazole 40 mg SDV IVP ×2 (08:36→17:00)
[2023-07-05] MEDS: metoprolol succinate ER (24 HR) 25 mg Tablet 12.5 MG PO (08:37)
[2023-07-05] MEDS: atorvastatin 40 mg Tablet 80 MG PO (08:37)
[2023-07-05] MEDS: aspirin 81 mg EC Tablet PO (08:37)
[2023-07-05] MEDS: clopidogrel 75 mg Tablet PO (08:37)
--- NOTE | 2023-07-05 09:00 | ECG_ITS ---
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 Measurements Intervals [place] Rate: 60 P: 64 NC: 152 QRS: 22 QRSD: 81 T: 48 QT: 401 QTc: 404 Interpretive Statements SINUS RHYTHM WITH OCCASIONAL SUPRAVENTRICULAR PREMATURE COMPLEXES POSSIBLE RIGHT VENTRICULAR CONDUCTION DELAY [RSR (QR) IN V1/V2] Compared to ECG 07/05/2023 03:05:47 Sinus bradycardia no longer present Sinus arrhythmia no longer present Electronically Signed On 07-07-2023 10:55:15 MANAGER COMMUNITY DEVELOPMENT by Anish Rocha M.D. [id number]
--- NOTE | 2023-07-05 09:47 | PC.PHAR ---
pt states he takes no rx or otc medications-no meds pull up on ext med history
--- NOTE | 2023-07-05 11:00 | PC.NURSE ---
TR band removed per protocol. No issues or concerns. No hematoma or oozing present. Dressing applied, patient educated regarding activity restrictions nurse will continue to monitor.
--- NOTE | 2023-07-05 13:22 | P.PN_ITS ---
Subjective 2 Subjective: Seen this morning. He is status post cath. Received 3 LADAN. Cath report pending at this time. There is another lesion that we will need PCI. Plan for that is Friday. Patient is chest pain-free at this time. Vitals/I&O/Wt Last Vital Signs Temp 97.9 F 07/05/23 11:40 Pulse 62 07/05/23 11:40 Resp 14 07/05/23 08:50 BP 113/65 07/05/23 11:40 Pulse Ox 98 07/05/23 08:50 O2 Del Method Room Air 07/05/23 08:50 07/04/23 07/05/23 07/05/23 22:59 06:59 14:59 Intake Total 1142.465 / 1142.465 Balance 1142.465 / 1142.465 Weight last 48 hrs Weight 64.909 kg Weight 64.909 kg Weight 70.307 kg Physical Exam 2 Narrative: No acute distress Normal S1-S2, RRR GCS 15 Abdomen soft nontender TR band on right wrist. Appears comfortable on room air. Vitals stable Lungs clear to auscultation bilaterally Data 07/05/23 01:59 07/05/23 01:59 A&P Assessment and plan (1) Acute non-ST elevation myocardial infarction (NSTEMI): (2) Chest pain: Qualifiers: Chest pain type: chest pain due to myocardial ischemia Ischemic chest pain type: unstable angina pectoris Qualified Code(s): I20.0 - Unstable angina Plan #NSTEMI status post cardiac angiogram status post PCI #CAD #Active smoker ? Patient came in with chest pain and was placed on nitro. Due to persistent chest pain was taken for emergent coronary angiography overnight. He underwent PCI with 3 drug-eluting stents. Cath report is pending at this time. There is a fourth lesion that will be worked on upcoming Friday. ? Currently chest pain-free ? Continue aspirin, Plavix, metoprolol succinate ? DuoNeb every 6 hours as needed -Check lipid panel, hemoglobin A1c, TSH ? Continue atorvastatin 80 daily ? Echo pending Full code DVT prophylaxis: Heparin SQ twice daily Attestations 2 Medical Necessity Statement*: More than 2 midnights anticipated Diagnoses Acute non-ST elevation myocardial infarction (NSTEMI) I21.4 Chest pain I20.0 Chest pain type: chest pain due to myocardial ischemia Ischemic chest pain type: unstable angina pectoris
[2023-07-05] MEDS: heparin 5,000 unit/mL INJ 1 mL 5000 UNIT SUBCUT (18:30)
[2023-07-06] VITALS: BP 120/63; PULSE 58; RESP 21; TEMP 36.9; O2SAT 96
[2023-07-06] MEDS: heparin 5,000 unit/mL INJ 1 mL 5000 UNIT SUBCUT ×2 (01:44→13:20)
[2023-07-06] MEDS: sodium chloride 0.9% 1,000 ML 100 ML IV (01:45)
[2023-07-06 04:00] VITALS: BP 106/73; PULSE 58; RESP 14; TEMP 36.6; O2SAT 96
[2023-07-06 04:02] LABS: Basophils % 0.2 %; Eosinophils # 0.1 10^3/uL (0.0-0.8); Eosinophils % 0.8 %; Hematocrit 34.8 % (37-53); Lymphocytes # 2.4 10^3/uL (0.8-4.8); Lymphocytes % 26.3 %; Mean Corpuscular HGB Conc 33.6 g/dL (30-55); Mean Corpuscular Hemoglobin 34.4 pg (27-33); Mean Corpuscular Volume 102.4 fl (82-101); Mean Platelet Volume 12.6 fL (7.4-10.4); Monocytes # 1.1 10^3/uL (0.2-0.9); Monocytes % 11.4 %; Neutrophils # 5.62 10^3/uL (1.8-7.7); Neutrophils % 61.1 %; Nucleated Red Blood Cells % 0 %; Platelet Count 147 10^3/cmm (157-399); Red Cell Distribution Width 12.4 % (12.1-15.1)
[2023-07-06 04:52] LABS: Blood Urea Nitrogen 6 mg/dL (6-20); Calcium 8.1 mg/dL (8.5-10.5); Carbon Dioxide 21 mmol/L (22-29); Chloride 105 mmol/L (98-107); Glomerular Filtration Rate 138.9 mL/min (90-130); Glucose 114 mg/dL (65-115); Osmolality Calculated 278 mOsm/kg (285-295); Sodium 135 mmol/L (136-145)
[2023-07-06 05:01] LABS: Anion Gap 12.7 (5-19); Potassium 3.7 mmol/L (3.5-5.1)
[2023-07-06 06:00] VITALS: PULSE 54; BMI 23.8
[2023-07-06] MEDS: atorvastatin 40 mg Tablet 80 MG PO (08:55)
[2023-07-06] MEDS: pantoprazole 40 mg SDV IVP ×2 (08:55→18:09)
[2023-07-06] MEDS: clopidogrel 75 mg Tablet PO (08:56)
[2023-07-06] MEDS: aspirin 81 mg EC Tablet PO (08:56)
[2023-07-06] MEDS: metoprolol succinate ER (24 HR) 25 mg Tablet 12.5 MG PO (08:56)
--- NOTE | 2023-07-06 09:04 | P.PN_ITS ---
Subjective 2 Subjective: Patient is doing well. No chest pain. He had coronary angiogram urgently yesterday and had PCI of critical PLV stenosis and severe proximal to mid Lcx. Vitals/I&O/Wt Last Vital Signs Temp 97.9 F 07/06/23 04:00 Pulse 54 L 07/06/23 06:00 Resp 14 07/06/23 04:00 BP 106/73 07/06/23 04:00 Pulse Ox 96 07/06/23 04:00 O2 Del Method Room Air 07/06/23 04:00 07/05/23 07/06/23 07/06/23 22:59 06:59 14:59 Intake Total 1000 / 1000 480 / 1480 Output Total 500 / 500 Balance 500 / 500 480 / 980 Weight last 48 hrs Weight 143 lb 1.6 oz Weight 143 lb 1.6 oz Weight 143 lb 1.6 oz Weight 155 lb Physical Exam 2 Narrative: GENERAL: Patient is alert, awake and oriented x3. [] NECK: No jugular vein distension. [] HEENT: No cyanosis. No icterus. No pallor. [] HEART: Regular S1 and S2. No murmur, rub or gallop. [] LUNGS: Clear to auscultate bilaterally. [] CENTRAL NERVOUS SYSTEM: Grossly nonfocal. [] EXTREMITIES: Lower extremities with 1+ edema bilaterally. Data 07/06/23 03:45 07/06/23 03:45 A&P Assessment and plan (1) Acute non-ST elevation myocardial infarction (NSTEMI): (2) Chest pain: Qualifiers: Chest pain type: chest pain due to myocardial ischemia Ischemic chest pain type: unstable angina pectoris Qualified Code(s): I20.0 - Unstable angina (3) Tobacco abuse: Plan Patient underwent successful vascularization of culprit critical 99% stenosis of PLV. Severe proximal to mid circumflex artery underwent successful revascularization with 2 stents. He has residual mid LAD stenosis that will have planned staged PCI on Friday. N.p.o. past midnight Continue dual antiplatelet therapy with aspirin and Plavix. Will continue atorvastatin. Beta-ann Echo shows normal LV systolic function. Thank you for involving us with care of this patient. We will continue to follow. Please call with questions. Attestations 2 Medical Necessity Statement*: Care expected to cross 2 midnights. Coding Level of Care Code Acute Code for [facility] Diagnoses Acute non-ST elevation myocardial infarction (NSTEMI) I21.4 Chest pain I20.0 Chest pain type: chest pain due to myocardial ischemia Ischemic chest pain type: unstable angina pectoris Tobacco abuse Z72.0
--- NOTE | 2023-07-06 14:16 | P.PN_ITS ---
Subjective 2 Subjective: Seen today. No acute events overnight. Plan to go for cath in a.m. Vitals/I&O/Wt Last Vital Signs Temp 97.9 F 07/06/23 04:00 Pulse 54 L 07/06/23 06:00 Resp 14 07/06/23 04:00 BP 106/73 07/06/23 04:00 Pulse Ox 96 07/06/23 04:00 O2 Del Method Room Air 07/06/23 04:00 07/05/23 07/06/23 07/06/23 22:59 06:59 14:59 Intake Total 1000 / 1000 480 / 1480 600 / 600 Output Total 500 / 500 Balance 500 / 500 480 / 980 600 / 600 Weight last 48 hrs Weight 64.909 kg Weight 64.909 kg Weight 64.909 kg Weight 70.307 kg Physical Exam 2 Narrative: No acute distress Normal S1-S2, RRR GCS 15 Abdomen soft nontender Appears comfortable on room air. Vitals stable Lungs clear to auscultation bilaterally Capillary refill less than 2 seconds right hand. Data 07/06/23 03:45 07/06/23 03:45 A&P Assessment and plan (1) Acute non-ST elevation myocardial infarction (NSTEMI): (2) Chest pain: Qualifiers: Chest pain type: chest pain due to myocardial ischemia Ischemic chest pain type: unstable angina pectoris Qualified Code(s): I20.0 - Unstable angina Plan #NSTEMI status post cardiac angiogram status post PCI #CAD status post 3 LADAN #Active smoker ? Patient came in with chest pain and was placed on nitro. Due to persistent chest pain was taken for emergent coronary angiography overnight. He underwent PCI with 3 drug-eluting stents. Cath report is pending at this time. There is a fourth lesion that will be worked on upcoming Friday. ? Currently chest pain-free ? Continue aspirin, Plavix, metoprolol succinate ? DuoNeb every 6 hours as needed -Check lipid panel, pending, hemoglobin A1c 5.8, TSH 1.24 ? Continue atorvastatin 80 daily ? Echo complete. ShowsLV systolic function is normal with EF 55 to 60%. Mild mitral regurgitation. Mild tricuspid regurgitation. No comparison studies are available Full code DVT prophylaxis: Heparin SQ twice daily Attestations 2 Medical Necessity Statement*: Care expected to cross 2 midnights. Diagnoses Acute non-ST elevation myocardial infarction (NSTEMI) I21.4 Chest pain I20.0 Chest pain type: chest pain due to myocardial ischemia Ischemic chest pain type: unstable angina pectoris
[2023-07-06 20:05] VITALS: BP 96/58; PULSE 64; RESP 13; TEMP 36.8
[2023-07-06 22:00] VITALS: PULSE 66
[2023-07-07] VITALS (19 sets, daily range): BP systolic 106–137; BP diastolic 73–90; PULSE 58–73; RESP 0–25; TEMP 36.7–36.9; O2SAT 86–98
[2023-07-07] MEDS: heparin 5,000 unit/mL INJ 1 mL 5000 UNIT SUBCUT (01:37)
[2023-07-07] MEDS: diphenhydrAMINE 50 mg Capsule PO (05:48)
[2023-07-07] MEDS: sodium chloride 0.9% 1,000 ML 50 ML IV (05:48)
--- NOTE | 2023-07-07 07:00 | XACV_ITS ---
Exam Room: [facility] Ht: 165 cm Wt: 67 kg BSA: 1.76 m2 Gender: Male : 1965 Any Known Allergies: No known allergies Exam Priority: Routine Procedure(s): Procedure Description: Diagnostic procedure Procedure Description: PCI procedure Procedure Description: Coronary IVUS Procedure Description: Drug Eluting Coronary Stent Procedure Description: PTCA Procedure Description: Miscellaneous Procedure Description: ACT Procedure Description: Coronary Angiography Diagnostic Cath Status: Elective Diagnostic Findings * INDICATION: Patient had presented with NSTEMI and underwent coronary angiography that showed multivessel disease with critical PLV stenosis that was culprit for NSTEMI. He underwent successful revascularization with 1 stent. Left circumflex artery also had PCI. He has residual significant mid LAD stenosis. Plan for staged PCI of LAD. * Left Main has no significant disease. * Circumflex has patent prior stents. * Right Coronary Artery not injected as it is staged PCI procedure. For full diagnostic procedure note, please refer to report from 07/05/2023. * Mid Left Anterior Descending to Distal Left Anterior Descending: obstructive 70% stenosis, REILLY: 3 flow. * Coronary angiography shows right dominance. PCI Status: Elective PCI Indication: Staged PCI Interventional Findings * PROCEDURE DETAIL: We engaged left main artery with XB 3.0 guide catheter. IV heparin was administered to maintain anticoagulation. 0.014 run-through guidewire was used to cross the stenosis and was put in distal vessel. We performed IVUS that showed MLA of 2.6 mm2. It was also used to size the stent. We initially put a 2.5 x 30 mm resolute Tal drug-eluting stent from mid to distal vessel. This was followed by overlapping stent and more proximal section. It was 2.5 by 18 mm resolute Tal drug-eluting stent. We then postdilated the overlapping segment in more proximal section of the stent with 2.75 x 12 mm NC balloon. At this time final angiogram was performed that showed excellent stent expansion, no residual stenosis and REILLY-3 flow. Guidewire and guide catheter were removed. Patient left the Liner Replacer in a stable condition.. * Mid Left Anterior Descending to Distal Left Anterior Descendin% stenosis treated with a MDT R TAL 2.5X30 LADAN, MDT R TAL 2.5X18 LADAN, and MDT NC EUPHORA RX [id number] BALLOON. 0% residual stenosis, REILLY: 3 flow. Conclusions 1. Severe mid LAD stenosis s/p successful revascularization with 2 stents.. 2. Mid Left Anterior Descending to Distal Left Anterior Descending was treated with a Drug Eluting Stent, Drug Eluting Stent, and Balloon. Recommendations * Dual antiplatelet therapy with aspirin and plavix for atleast 1 year. * High intensity statin therapy. * Outpatient cardiology follow up in 2 weeks. Interventional RX Recommendation: PCI w/o planned CABG Diagnostic RX Recommendation: PCI w/o planned CABG Anticoagulation: Heparin Pressures Phase:Rest AO : 94 / 56 ( 71 ) @ 7:45:00 AM 85 / 56 ( 71 ) @ 8:00:00 AM 114 / 70 ( 90 ) @ 8:03:00 AM 110 / 68 ( 87 ) @ 8:13:00 AM Clinical Evaluation EBL: 5mL-10mL Procedural Details Procedure Consent Obtained. Pre-Procedure Time Out. Identified patient by full name and date of as verbalized by the patient/guarantor. Does the consent match the physician's order: Yes. Accurate & Complete Informed Consent: Yes. Inpatient/Outpatient History & Physical on Chart: Yes. If H&P is completed, is and addenduem needed: No; If yes, is the addendum complete: N/A. Visualize and Verify Site with Patient/Guarantor: N/A. Relevant Radiology Images available: Yes. The risks, benefits, and alternatives of sedation and/or procedure were discussed by physician. The patient agrees to continue. Procedure started. [facility] Clinical Fraility Score: 3: Managing Well. Liner Replacer Indications: ACS > 24 hours. Chest Pain Symptom Assessment: Typical Angina Symptoms. Correct patient, site and procedure confirmed by cath team. Current diagnosis: NSTEMI, Staged PCI of LAD. PERRLA. Strong, equal hand lav crewman bilaterally. Lungs clear x 5 lobes. IV Site on Arrival: 20 gauge in the right anticubital. IV Site on Arrival: 18 gauge in the left anticubital. IV Fluids: 0.9% NaCl at 75ml/hr. 200 mL infused prior to dental laboratory manager. Pre Procedural Pulses: bilateral dorsalis pedis was 3+. Pre Procedural Pulses: bilateral posterior tibial was 3+. Pre Procedural Pulses: bilateral radial was 3+. Oxygen started at 2liters/min via nasal canula. right groin was prepped with chloroprep then draped in the usual sterile fashion. Physician notified. Baseline sample Acquired. HR: 64 BPM. Physician arrived. Physician scrubbed in. Immediate Pre-Procedure Time Out. Correct Patient: Yes; Correct Procedure: Yes; Correct Site: Yes; Correct Patient Position: Yes; Correct Supplies: Yes; Dried Flammable Prep: Yes; Blood Products Available: Yes;. Lidocaine 1% infiltrated to the right radial. Arterial access obtained. PCI Indication: NSTE. 6 bengali XB 3 guide catheter was inserted over the wire. Runthrough guidewire was advanced through the guide catheter to lesion in the mid LAD. Guidewire advanced across lesion. IVUS catheter in over runthrough wire. IVUS run performed of mid LAD. Stent inserted to lesion in the mid LAD. Inflation Number : 1 A SHANI Gomez TAL 2.5X30 LADAN -Lot Number# [id number] EXP 01-17-2026 was prepped and advanced across the Mid LAD. The stent was deployed at 12 WILMA for 0:25 seconds. Stent balloon out over wire. Results checked. IVUS catheter in over runthrough wire. IVUS catheter out. Inflation Number : 2 A SHANI Gomez TAL 2.5X18 LADAN -Lot Number# [id number] EXP 08-03-2025 was prepped and advanced across the Mid LAD. The stent was deployed at 12 WILMA for 0:17 seconds. Stent balloon out over wire. Inflation number : 3 Diana LOCKETT TAVONORA RX [id number] BALLOON was prepped and advanced across the Mid LAD , then inflated to 20 WILMA for 0:19 seconds. Balloon out. Wire out. Results checked. ACT drawn. Results out of range high results. Therapeutic limits - pre-heparin administration 90-150 seconds and monitoring heparin during a vascular procedure >250 seconds. Guide catheter out over exchange wire. Wire out. Post Procedure: Pulses reassessed and unchanged. PERRLA. Strong, equal hand lav crewman bilaterally. No VTE prophylaxis required. Medication's Wasted: Nitro = 49.8 mg. Medication's Wasted: Lidocaine 1% = 2 mL. Total IV fluids: 75 mL. A TR Band was successful obtaining hemostatsis at the Right Radial artery insertion site. Post-op diagnosis: Severe mid LAD stenosis, status post pci placement of 2 stents. Complications: None. Estimated blood loss: 5mL-10mL. Responsiveness - Normal response to verbal stimuli; alert and oriented, PERRLA. Airway - Unaffected, no intervention required; spontaneous ventilation. Circulation: W/N/L, pulses unchanged. Nausea/Vomiting: No. Procedure completed. Patient transferred by wheelchair to 1st floor. Vital chart was stopped. Access Site Site: Right Radial artery Sheath Size: 6 Fr Hemostasis Method: TR Band Hemostasis Success: Successful Procedure Medications Start: 7:25 AM Stop: 7:25 AM Medication: Versed Amount: 1 mg Route: I.V. Start: 7:25 AM Stop: 7:25 AM Medication: Fentanyl Amount: 50 mcg Route: I.V. Start: 7:35 AM Stop: 7:35 AM Medication: Versed Amount: 1 mg Route: I.V. Start: 7:35 AM Stop: 7:35 AM Medication: Fentanyl Amount: 50 mcg Route: I.V. Start: 7:41 AM Stop: 7:41 AM Medication: Nitrogylcerin Amount: 200 mcg Route: I.A. Start: 7:42 AM Stop: 7:42 AM Medication: Versed Amount: 1 mg Route: I.V. Start: 7:44 AM Stop: 7:44 AM Medication: Heparin Amount: 6000 units Route: I.V. Start: 8:14 AM Stop: 8:14 AM Medication: Versed Amount: 1 mg Route: I.V. I, the attending physician, have reviewed and verified all procedure medications. Yes, all medications given per verbal order History/Risk Factors Hypertension: No Dyslipidemia: No Peripheral Arterial Disease (PAD): No Myocardial Infarction (MA): Yes Obesity: No Renal Disease: No Tobacco Use: Current/Recent(w/in 1 year) Prior Interventions PCI: Yes CABG: No Valve Surgery: No Date of PCI: 07/05/2023 Report Signatures Finalized by Anish Rocha MD on 07/22/2023 11:29 AM
--- NOTE | 2023-07-07 07:31 | W.PM.OPSUD ---
Surgery/Procedure H&P Update DATE OF PROCEDURE: July 07, 2023 DATE H&P PERFORMED: 07/05/23 H&P UPDATE INFORMATION: I have reviewed H&P completed within last 30 days, I have examined patient prior to procedure and Changes to prior documentation as noted here CHANGES TO PREVIOUS DOCUMENTATION: Patient's coronary angiography showed multivessel disease with critical PLV stenosis that was culprit for NSTEMI. He underwent successful revascularization with 1 stent. Left circumflex artery also had PCI. He has residual significant mid LAD stenosis. Plan for staged PCI of LAD. PREOP DIAGNOSIS: NSTEMI/ Staged PCI of LAD PRIMARY INDICATION FOR PROCEDURE: NSTEMI/ Staged PCI of LAD PLANNED PROCEDURE: Operation Date: 07/07/23 07:00 Proposed Procedures p Percutaneous Coronary Intervention(Left) - Anish Rocha M.D PATIENT REASSESSED PRIOR TO SEDATION, WITH NO CHANGE NOTED: Yes PHYSICAL EXAM: alert, oriented x 3, clear to auscultation bilaterally and regular rate & rhythm AIRWAY EVAL/ANESTHESIA PLAN: normal airway, ASA III, Monitored Anesthesia, Local Anesthesia, Risks, benefits & alternatives of sedation and/or procedure discussed and Patient agrees to continue as planned
--- NOTE | 2023-07-07 07:34 | P.PN_ITS ---
Subjective 2 Subjective: Patient had PCI of LAD with 2 stents. No chest pain. Vitals/I&O/Wt Last Vital Signs Temp 98.1 F 07/07/23 04:20 Pulse 62 07/07/23 06:00 Resp 15 07/07/23 00:10 BP 110/73 07/07/23 04:20 Pulse Ox 96 07/06/23 04:00 O2 Del Method Room Air 07/06/23 04:00 07/06/23 07/07/23 07/07/23 22:59 06:59 14:59 Intake Total 480 / 2080 Balance 480 / 2080 Weight last 48 hrs Weight 148 lb Weight 143 lb 1.6 oz Physical Exam 2 Narrative: GENERAL: Patient is alert, awake and oriented x3. [] NECK: No jugular vein distension. [] HEENT: No cyanosis. No icterus. No pallor. [] HEART: Regular S1 and S2. No murmur, rub or gallop. [] LUNGS: Clear to auscultate bilaterally. [] CENTRAL NERVOUS SYSTEM: Grossly nonfocal. [] EXTREMITIES: Lower extremities with 1+ edema bilaterally. Data 07/06/23 03:45 07/06/23 03:45 A&P Assessment and plan (1) Acute non-ST elevation myocardial infarction (NSTEMI): (2) Chest pain: Qualifiers: Chest pain type: chest pain due to myocardial ischemia Ischemic chest pain type: unstable angina pectoris Qualified Code(s): I20.0 - Unstable angina (3) Tobacco abuse: Plan Patient underwent PCI of LAD with 2 stents today. Prior PCI of left circumflex artery and PLV done 2 days ago. Will continue with dual antiplatelet therapy. Will continue atorvastatin. Beta-ann Echo shows normal LV systolic function. Thank you for involving us with care of this patient. We will continue to follow. Please call with questions. Attestations 2 Medical Necessity Statement*: Care expected to cross 2 midnights. Coding Level of Care Code Acute Code for [facility] Diagnoses Acute non-ST elevation myocardial infarction (NSTEMI) I21.4 Chest pain I20.0 Chest pain type: chest pain due to myocardial ischemia Ischemic chest pain type: unstable angina pectoris Tobacco abuse Z72.0
--- NOTE | 2023-07-07 07:48 | PC.NURSE ---
in the crime lab technician right now
--- NOTE | 2023-07-07 08:21 | P.PN_ITS ---
Subjective 2 Subjective: seen this am no acute events overnight cath today for staged intervention chest pain free Vitals/I&O/Wt Last Vital Signs Temp 98.1 F 07/07/23 04:20 Pulse 62 07/07/23 06:00 Resp 15 07/07/23 00:10 BP 110/73 07/07/23 04:20 Pulse Ox 96 07/06/23 04:00 O2 Del Method Room Air 07/06/23 04:00 07/06/23 07/07/23 07/07/23 22:59 06:59 14:59 Intake Total 480 / 2080 Balance 480 / 2080 Weight last 48 hrs Weight 67.132 kg Weight 64.909 kg Physical Exam 2 Narrative: No acute distress Normal S1-S2, RRR GCS 15 Abdomen soft nontender Appears comfortable on room air. Vitals stable Lungs clear to auscultation bilaterally Capillary refill less than 2 seconds right hand. Data 07/06/23 03:45 07/06/23 03:45 A&P Assessment and plan (1) Acute non-ST elevation myocardial infarction (NSTEMI): (2) Chest pain: Qualifiers: Chest pain type: chest pain due to myocardial ischemia Ischemic chest pain type: unstable angina pectoris Qualified Code(s): I20.0 - Unstable angina Plan #NSTEMI status post cardiac angiogram status post PCI x5 LADAN #CAD status post 3 LADAN #Active smoker ? Patient came in with chest pain and was placed on nitro. Due to persistent chest pain was taken for emergent coronary angiography overnight. He underwent PCI with 3 drug-eluting stents. Cath report is pending at this time. ? Currently chest pain-free ? Continue aspirin, Plavix, metoprolol succinate ? DuoNeb every 6 hours as needed -Check lipid panel, pending, hemoglobin A1c 5.8, TSH 1.24 ? Continue atorvastatin 80 daily ? Echo complete. ShowsLV systolic function is normal with EF 55 to 60%. Mild mitral regurgitation. Mild tricuspid regurgitation. No comparison studies are available - Continue to monitor s/p cath in hospital today - Will need Meds to BEds at dc. Plan for Dc in AM. Full code DVT prophylaxis: Heparin SQ twice daily Attestations 2 Medical Necessity Statement*: requires continued hospitalization for mgmt of NSTEMI Diagnoses Acute non-ST elevation myocardial infarction (NSTEMI) I21.4 Chest pain I20.0 Chest pain type: chest pain due to myocardial ischemia Ischemic chest pain type: unstable angina pectoris
[2023-07-07] MEDS: atorvastatin 40 mg Tablet 80 MG PO (09:02)
[2023-07-07] MEDS: clopidogrel 75 mg Tablet PO (09:02)
[2023-07-07] MEDS: metoprolol succinate ER (24 HR) 25 mg Tablet 12.5 MG PO (09:02)
[2023-07-07] MEDS: aspirin 81 mg EC Tablet PO (09:02)
[2023-07-07] MEDS: pantoprazole 40 mg SDV IVP ×2 (09:03→20:36)
[2023-07-08] MEDS: heparin 5,000 unit/mL INJ 1 mL 5000 UNIT SUBCUT (01:05)
[2023-07-08 03:19] VITALS: BP 93/64; PULSE 69; RESP 15; TEMP 36.8; O2SAT 94
[2023-07-08 03:49] LABS: Basophils # 0.1 10^3/uL (0.0-0.1); Basophils % 0.6 %; Eosinophils # 0.2 10^3/uL (0.0-0.8); Eosinophils % 2.5 %; Hematocrit 35.7 % (37-53); Lymphocytes # 1.9 10^3/uL (0.8-4.8); Lymphocytes % 22.9 %; Mean Corpuscular HGB Conc 33.6 g/dL (30-55); Mean Corpuscular Hemoglobin 33.9 pg (27-33); Mean Corpuscular Volume 100.8 fl (82-101); Mean Platelet Volume 12.9 fL (7.4-10.4); Monocytes # 0.9 10^3/uL (0.2-0.9); Monocytes % 10.8 %; Neutrophils # 5.08 10^3/uL (1.8-7.7); Nucleated Red Blood Cells % 0 %; Platelet Count 140 10^3/cmm (157-399); Red Blood Count 3.54 10^6/uL (3.85-5.65); Red Cell Distribution Width 11.8 % (12.1-15.1); White Blood Count 8.07 10^3/uL (3.29-11.43)
[2023-07-08 04:06] LABS: Anion Gap 12.8 (5-19); Blood Urea Nitrogen 7 mg/dL (6-20); Calcium 8.5 mg/dL (8.5-10.5); Carbon Dioxide 24 mmol/L (22-29); Chloride 106 mmol/L (98-107); Glomerular Filtration Rate 138.9 mL/min (90-130); Glucose 96 mg/dL (65-115); Osmolality Calculated 286 mOsm/kg (285-295); Potassium 3.8 mmol/L (3.5-5.1); Sodium 139 mmol/L (136-145)
[2023-07-08 06:00] VITALS: PULSE 58
--- NOTE | 2023-07-08 07:53 | P.PN_ITS ---
Subjective 2 Subjective: Patient is doing well. no chest pain Vitals/I&O/Wt Last Vital Signs Temp 98.3 F 07/08/23 03:19 Pulse 58 L 07/08/23 06:00 Resp 15 07/08/23 03:19 BP 93/64 07/08/23 03:19 Pulse Ox 94 07/08/23 03:19 O2 Del Method Room Air 07/08/23 03:19 07/07/23 07/08/23 07/08/23 22:59 06:59 14:59 Intake Total 1275 / 1615 Balance 1275 / 1615 Weight last 48 hrs Weight 147 lb 8 oz Weight 148 lb Physical Exam 2 Narrative: GENERAL: Patient is alert, awake and oriented x3. [] NECK: No jugular vein distension. [] HEENT: No cyanosis. No icterus. No pallor. [] HEART: Regular S1 and S2. No murmur, rub or gallop. [] LUNGS: Clear to auscultate bilaterally. [] CENTRAL NERVOUS SYSTEM: Grossly nonfocal. [] EXTREMITIES: Lower extremities with 1+ edema bilaterally. Data 07/08/23 03:40 07/08/23 03:40 A&P Assessment and plan (1) Acute non-ST elevation myocardial infarction (NSTEMI): (2) Chest pain: Qualifiers: Chest pain type: chest pain due to myocardial ischemia Ischemic chest pain type: unstable angina pectoris Qualified Code(s): I20.0 - Unstable angina (3) Tobacco abuse: Plan Patient underwent PCI of LAD with 2 stents. Prior PCI of left circumflex artery and PLV done. He is asymptomatic. Will continue with dual antiplatelet therapy. Echo shows normal LV systolic function. Close cardiology follow up Thank you for involving us with care of this patient. Patient is stable to be discharged from cardiology standpoint. Please call with questions. Attestations 2 Medical Necessity Statement*: Care expected to cross 2 midnights. Coding Level of Care Code Acute Code for [facility] Diagnoses Acute non-ST elevation myocardial infarction (NSTEMI) I21.4 Chest pain I20.0 Chest pain type: chest pain due to myocardial ischemia Ischemic chest pain type: unstable angina pectoris Tobacco abuse Z72.0
[2023-07-08 08:00] VITALS: BP 119/70; PULSE 70; RESP 16; TEMP 37.1; O2SAT 95
[2023-07-08] MEDS: atorvastatin 40 mg Tablet 80 MG PO (08:19)
[2023-07-08] MEDS: metoprolol succinate ER (24 HR) 25 mg Tablet 12.5 MG PO (08:20)
[2023-07-08] MEDS: aspirin 81 mg EC Tablet PO (08:20)
[2023-07-08] MEDS: clopidogrel 75 mg Tablet PO (08:20)
[2023-07-08] MEDS: pantoprazole 40 mg SDV IVP (08:21)
--- NOTE | 2023-07-08 11:08 | PM.DCS ---
Discharge Providers Date of Admission: 07/05/23 00:03 Date of Discharge: July 08, 2023 Attending Provider at Admission: Jairo Loyola MD Attending Provider at Discharge: Jairo Loyola MD Primary Care Provider: Genaro Blunt MD Diagnoses at Discharge Discharge Diagnosis (1) Acute non-ST elevation myocardial infarction (NSTEMI): Status: Acute (2) Chest pain: Status: Acute Qualifiers: Chest pain type: chest pain due to myocardial ischemia Ischemic chest pain type: unstable angina pectoris Qualified Code(s): I20.0 - Unstable angina (3) Tobacco abuse: Status: Acute Reason for Visit Reason for Visit: CP Hospital Course Hospital Course 57-year male who was admitted for management evaluation of chest pain, he was diagnosed with non-STEMI, within few hours patient went to the Movement Education Specialist for persistent chest pain, received initial stents in the circumflex artery and then staged PCI LAD 2 stents , social service technician helped him to apply for the insurance as well, patient will get meds to beds at the time of discharge. He will need aspirin, Plavix atorvastatin, we will refill his medications via [facility] as well. Patient is symptomatically doing much better he has been counseled not to miss any of his medications and he should call PCP or ict developer office in case he needs refills. Counseled on smoking cessation. Echo showed preserved ejection fraction. Physical Exam Narrative: Awake and alert GCS 15 S1, S2 Pleasant cooperative Abdomen soft Euvolemic Discharge Data Studies Completed and Pending Completed Studies During Hospitalization Category Date Time Status CAMERA TECHNICIAN request for service Routine Exams 07/05/23 03:32 Completed XR chest 1V portable [id number] Stat Exams 07/04/23 20:25 Completed CV. echo complete* [id number] Routine Ultrasound 07/05/23 00:03 Completed Pending at discharge Category Date Time Status CAMERA TECHNICIAN request for service Routine Exams 07/07/23 07:00 Taken Radiology Impressions Chest X-Ray 07/04/23 20:25 IMPRESSION: 1. No acute cardiopulmonary abnormality. Laboratory Results WBC 8.07 10^3/uL (3.29-11.43) 07/08/23 03:40 RBC 3.54 10^6/uL (3.85-5.65) L 07/08/23 03:40 Hgb 12.00 g/dL (11.27-16.99) 07/08/23 03:40 Hct 35.7 % (37-53) L 07/08/23 03:40 MCV 100.8 fl (82-101) 07/08/23 03:40 MCH 33.9 pg (27-33) H 07/08/23 03:40 MCHC 33.6 g/dL (30-55) 07/08/23 03:40 RDW 11.8 % (12.1-15.1) L 07/08/23 03:40 Plt Count 140 10^3/cmm (157-399) L 07/08/23 03:40 MPV 12.9 fL (7.4-10.4) H 07/08/23 03:40 Neut % (Auto) 63.0 % 07/08/23 03:40 Lymph % (Auto) 22.9 % 07/08/23 03:40 [place] % (Auto) 10.8 % 07/08/23 03:40 Eos % (Auto) 2.5 % 07/08/23 03:40 Baso % (Auto) 0.6 % 07/08/23 03:40 Neut # (Auto) 5.08 10^3/uL (1.8-7.7) 07/08/23 03:40 Lymph # (Auto) 1.9 10^3/uL (0.8-4.8) 07/08/23 03:40 [place] # (Auto) 0.9 10^3/uL (0.2-0.9) 07/08/23 03:40 Eos # (Auto) 0.2 10^3/uL (0.0-0.8) 07/08/23 03:40 Baso # (Auto) 0.1 10^3/uL (0.0-0.1) 07/08/23 03:40 Nucleated RBC % (auto) 0 % 07/08/23 03:40 Nucleated RBCs # 0.0 /100WBC 07/08/23 03:40 PT 13.60 SECONDS (12.1-14.9) 07/04/23 19:44 INR 1.01 (0.8-1.2) 07/04/23 19:44 APTT 75.8 SECONDS (23.9-36.7) H D 07/05/23 03:48 D-Dimer 0.31 ug/mLFEU (0-0.59) 07/05/23 01:19 Sodium 139 mmol/L (136-145) 07/08/23 03:40 Potassium 3.8 mmol/L (3.5-5.1) 07/08/23 03:40 Chloride 106 mmol/L (98-107) 07/08/23 03:40 Carbon Dioxide 24 mmol/L (22-29) 07/08/23 03:40 Anion Gap 12.8 (5-19) 07/08/23 03:40 BUN 7 mg/dL (6-20) 07/08/23 03:40 Creatinine 0.6 mg/dL (0.7-1.2) L 07/08/23 03:40 GFR Calculation 138.9 mL/min (90-130) H 07/08/23 03:40 Glucose 96 mg/dL (65-115) 07/08/23 03:40 Estimat Average Glucose 120 07/05/23 01:19 Hemoglobin A1c 5.8 % (4.0-6.0) 07/05/23 01:19 Calculated Osmolality 286 mOsm/kg (285-295) 07/08/23 03:40 Calcium 8.5 mg/dL (8.5-10.5) 07/08/23 03:40 Magnesium 2.0 mg/dL (1.7-2.3) 07/06/23 03:45 Total Bilirubin 0.3 mg/dL (0.15-1.2) 07/04/23 19:44 AST 18 U/L (0-40) 07/04/23 19:44 ALT 16 U/L (0-41) 07/04/23 19:44 Alkaline Phosphatase 48 U/L (40-130) 07/04/23 19:44 Troponin T Baseline 14 ng/L (0-15) 07/04/23 19:44 Troponin T 120 Minute 46.09 ng/L (0-15) H 07/04/23 21:59 Delta Troponin T 32.09 ABS# (0-10) H* 07/04/23 21:59 Troponin T Hi Sens 6Hr 223.7 ng/L (0-15) H 07/05/23 01:59 Troponin T Hi Sens 6Hr Delta 209.7 ng/L (0-12) H* 07/05/23 01:59 C-Reactive Protein 3.0 mg/L (0.0-4.9) 07/05/23 01:59 NT-Pro-B Natriuret Pep 44 pg/mL (0-125) 07/04/23 19:44 Total Protein 6.6 g/dL (6.6-8.7) 07/04/23 19:44 Albumin 4.4 g/dL (3.5-5.2) 07/04/23 19:44 Globulin 2.2 g/dL (1.3-4.6) 07/04/23 19:44 Vitamin B12 513 pg/mL (232-1245) 07/05/23 01:19 TSH 1.24 uIU/mL (0.27-4.20) 07/05/23 01:19 Urine Opiates Screen Positive ng/mL (Negative) H 07/05/23 02:45 Ur Barbiturates Screen Negative ng/mL (Negative) 07/05/23 02:45 Ur Phencyclidine Scrn Negative ng/mL (Negative) 07/05/23 02:45 Ur Amphetamines Screen Negative ng/mL (Negative) 07/05/23 02:45 U Benzodiazepines Scrn Negative ng/mL (Negative) 07/05/23 02:45 Urine Cocaine Screen Negative ng/mL (Negative) 07/05/23 02:45 U Marijuana (THC) Screen Negative ng/mL (Negative) 07/05/23 02:45 Ethyl Alcohol < 10 mg/dL (0-10) 07/05/23 01:19 Vitals Last Vital Signs Temp 98.8 F 07/08/23 08:00 Pulse 70 07/08/23 08:00 Resp 16 07/08/23 08:00 BP 119/70 07/08/23 08:00 Pulse Ox 95 07/08/23 08:00 O2 Del Method Room Air 07/08/23 08:00 Discharge Plan Discharge Patient Disposition: Home Condition: Stable Prescriptions: New atorvastatin 40 mg Tablet 80 mg PO DAILY Qty: 90 3RF metoprolol succinate 25 mg Tablet Extended Release 24 Hr 12.5 mg PO DAILY Qty: 30 3RF aspirin 81 mg Tablet,Delayed Release (Dr/Ec) 81 mg PO DAILY Qty: 90 3RF clopidogrel 75 mg Tablet 75 mg PO DAILY Qty: 90 3RF No Action No Known Home Medications Discharge Orders: Discharge Order (Routine); Ordered 07/08/23 Ordered By: Jairo Loyola Referrals: Jose Whittington MD [Referring] - 07/16/23 1:00 pm (You will need your last 3 paycheck luis to apply for the sliding scale. This will be a new appointment to establish care with a primary provider. ) Jailyn Garcia FNP [Nurse Practitioner] - 07/15/23 9:45 am Discharge Diet: Cardiac Patient Instructions: Coronary Angioplasty (DC), Chest Pain Stoplight, Opioid Safety, Post Angiogram Home Care Instructions, Post Heart Attack Stoplight Discharge Attestations Time Spent in Discharge Care*: greater than 30 min Quality Metrics Clinical Quality Measures [ No reported AMI, CVA or VTE this stay] Coding Level of Care Code Acute Code for g Fwd Diagnoses Acute non-ST elevation myocardial infarction (NSTEMI) I21.4 Chest pain I20.0 Chest pain type: chest pain due to myocardial ischemia Ischemic chest pain type: unstable angina pectoris Tobacco abuse Z72.0
[2023-07-08 11:25] VITALS: BP 119/70; PULSE 70; RESP 16; TEMP 37.1; O2SAT 95
[2023-07-08 12:00] VITALS: BP 103/74; PULSE 62; RESP 16; TEMP 37.3; O2SAT 97
--- NOTE | 2023-07-08 13:19 | PC.NURSE ---
discharge instructions given and explained.pt verb understanding of instructions.post-discharge medications given via meds to beds program.discharged via ambulatory to exit at this time.friend to drive pt home
== END 2023-07-08 13:21 | disposition home or self-care (01) | DRG 321 ==
LOC: ER 22:36 → CSU 07-05 06:55
PROVIDERS: Internal Medicine; Admitting Provider Internal Medicine; Emergency Provider Internal Medicine; PCP Family Medicine; Visit Provider Internal Medicine
PROC: 027136Z Dilation of Coronary Artery, Two Arteries with Three Drug-eluting Intraluminal Devices, Percutaneous Approach (ICD-10-PCS; principal; 2023-07-05 03:30)
PROC: 027136Z Dilation of Coronary Artery, Two Arteries with Three Drug-eluting Intraluminal Devices, Percutaneous Approach (ICD-10-PCS; 2023-07-05 03:30)
PROC: 027035Z Dilation of Coronary Artery, One Artery with Two Drug-eluting Intraluminal Devices, Percutaneous Approach (ICD-10-PCS; principal; 2023-07-07 07:00)
PROC: 027035Z Dilation of Coronary Artery, One Artery with Two Drug-eluting Intraluminal Devices, Percutaneous Approach (ICD-10-PCS; 2023-07-07 07:00)
DX: I21.4 Non-ST elevation (NSTEMI) myocardial infarction (principal); I25.110 Atherosclerotic heart disease of native coronary artery with unstable angina pectoris; F17.210 Nicotine dependence, cigarettes, uncomplicated; F10.10 Alcohol abuse, uncomplicated
CPT/HCPCS: 36415; 71045; 80048; 80053; 80306; 80307; 82607; 83036; 83735; 83880; 84443; 84484; 85025; 85347; 85378; 85610; 85730; 86140; 92929; 92978; 93005; 93306; 93454; 96365; 96366; 96367; 96372; 96375; 96376; 99152; 99153; 99285; C1725; C1753; C1769; C1874; C1887; C1894; C9113; C9600; J0461; J1170; J1644; J2250; J2405; J3010; J3490; J7030; Q0163; Q9967

== ENCOUNTER 2023-12-25 13:15 | Emergency (ER) | payer SELFPAY ==
[2023-12-25] VITALS (7 sets, daily range): BP systolic 123–144; BP diastolic 56–93; PULSE 61–77; RESP 16–18; O2SAT 92–96; BMI 20.7
--- NOTE | 2023-12-25 13:15 | ECG_ITS ---
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 Measurements Intervals [place] Rate: 77 P: -17 MI: 129 QRS: -5 QRSD: 90 T: 10 QT: 364 QTc: 413 Interpretive Statements SINUS RHYTHM POSSIBLE RIGHT VENTRICULAR CONDUCTION DELAY [RSR (QR) IN V1/V2] INTERPRETATION BASED ON A DEFAULT AGE OF 40 YEARS Compared to ECG 07/05/2023 09:00:16 No significant changes Electronically Signed On 12-26-2023 20:35:36 CDT by Aura Lopez M.D. [email or web address] Hammer Brewingkettering health washington township.[employer]/store/NU/[id number] f
--- NOTE | 2023-12-25 13:38 | XR_ITS ---
WS: [id number] Exam: XR chest 1V portable [id number] Date/Time of Exam: 12/25/2023 1:42 PM Reason For Exam: dyspnea/cough Comparison 07/04/2023. The lungs are clear and fully expanded. Normal cardiomediastinal silhouette. No pleural effusions. Mi ld scoliosis of the lower T-spine with the LEFT convexity. XR/XR chest 1V portable [id number] IMPRESSION: 1. No acute cardiopulmonary finding.
[2023-12-25] MEDS: aspirin 81 mg Chew Tablet 324 MG PO (13:48)
--- NOTE | 2023-12-25 13:48 | PC.PHAR ---
PT STATES HAS STOPPED TAKING ATORVASTATIN 40MG, CLOPIDOGREL 75MG, AND METOPROLOL SUCCINATE 25 MG ER. I WAS NOT COMFORTABLE REMOVING FROM HIS LIST.
--- NOTE | 2023-12-25 13:52 | W.ED.CHESTPA ---
HPI - Chest Pain General: Chief Complaint: Chest Pain Stated Complaint: chest pain Time Seen by Provider: 12/25/23 13:35 Source: patient Mode of arrival: ambulatory History of Present Illness: 58-year-old male with a known history of coronary disease presents emergency room with complaint of chest discomfort with nausea has had for the last several days pressure 3 days. States he is also had a fever had vomiting and diarrhea. He states that when he presented previously presents to me he had vomiting is very concerned he is having recurrence he had some discomfort associated with this as well. He is also had diaphoresis and shortness of breath. Symptoms are improved now. MD complaint: chest pain Pertinent past history: coronary artery disease Timing of current episode: episodic Prior episodes: Yes Onset: during rest Pain radiation: left arm and back Severity: moderate Quality: tightness, aching and heaviness Relieving factors: nothing Associated symptoms: Deny abdominal pain, diaphoresis, dyspnea, fever(s), leg edema, nausea, palpitations, sense of impending doom, syncope or vomiting Treatment prior to arrival: none Review of Systems Const: Denies: fever(s), chills or diaphoresis Card: Denies: chest pain, palpitations or syncope Resp: Denies: dyspnea GI: Denies: abdominal pain, nausea or vomiting : Denies: dysuria, urinary frequency or urinary urgency Musc: Denies: neck pain or back pain Skin/Breast: Denies: rash PFSH ED PFSH: Medical History Acute non-ST elevation myocardial infarction (NSTEMI) Tobacco abuse Chest pain Alcohol abuse No pertinent past medical history Surgical History No history of previous surgery No pertinent past surgical history Social History Smoking and tobacco/nicotine status: current every day tobacco/nicotine user Alcohol intake: current Alcohol intake frequency: holidays/special occasions only Physical Exam Const: COMMON NORMALS: no acute distress GENERAL APPEARANCE: cooperative and comfortable ORIENTATION/CONSCIOUSNESS: Yes awake, Yes oriented to person, Yes oriented to place and Yes oriented to time HENMT: COMMON NORMALS: normocephalic, atraumatic and hearing grossly normal bilaterally HEAD & SCALP: normocephalic and atraumatic Resp: COMMON NORMALS: normal respiratory effort, No retractions, No use of accessory muscles and clear to auscultation bilaterally AUSCULTATION: clear to auscultation bilaterally Cardio: COMMON NORMALS: regular rate, regular rhythm and No murmurs present (Cardio) RATE: regular rate RHYTHM: regular rhythm GI: COMMON NORMALS: Soft to palpation and No hepatosplenomegaly present AUSCULTATION: Yes normoactive bowel sounds PALPATION: Yes Soft to palpation, No Tenderness to palpation present (GI), No Guarding due to palpation present (GI) and Yes No hepatosplenomegaly present Extremity: COMMON NORMALS: normal to inspection, capillary refill normal, no clubbing, cyanosis or edema, no calf tenderness and no pedal edema Neuro: SENSORIUM/ORIENTATION: Yes oriented to person, Yes oriented to place and Yes oriented to time Skin: COMMON NORMALS: no rashes or lesions noted GENERAL SKIN EXAM: no rashes or lesions noted Course Vital Signs: Vital signs: Vital Signs Pulse Rate 63 12/25/23 16:30 Respiratory Rate 16 12/25/23 16:30 Blood Pressure 137/77 12/25/23 16:30 Pulse Oximetry 96 12/25/23 16:30 Oxygen Delivery Me thod Room Air 12/25/23 13:16 MDM - Chest Pain Medical Decision Making No acute changes and EKGs are cardiac enzymes. Unfortunately patient has stopped taking all of his medications but is aspirin. He is given refills on everything but I discussed the importance of taking his Plavix regularly Eesilite his last stents he tells me about 4 to 5 months ago. All his medications were sent in and think we can discharge him home at this time and restart his meds. Should follow-up with cardiology as soon as he is able. Medical Records I reviewed the patient's medical records. Lab Data I reviewed the patient's lab results. 12/25/23 13:44 12/25/23 13:44 Radiology Impressions Chest X-Ray 12/25/23 13:38 IMPRESSION: 1. No acute cardiopulmonary finding. Laboratory Results WBC 5.47 10^3/uL (3.29-11.43) 12/25/23 13:44 RBC 3.90 10^6/uL (3.85-5.65) 12/25/23 13:44 Hgb 13.20 g/dL (11.27-16.99) 12/25/23 13:44 Hct 38.2 % (37-53) 12/25/23 13:44 MCV 97.9 fl (82-101) 12/25/23 13:44 MCH 33.8 pg (27-33) H 12/25/23 13:44 MCHC 34.6 g/dL (30-55) 12/25/23 13:44 RDW 15.2 % (12.1-15.1) H 12/25/23 13:44 Plt Count 200 10^3/cmm (157-399) 12/25/23 13:44 MPV 11.3 fL (7.4-10.4) H 12/25/23 13:44 Neut % (Auto) 53.6 % 12/25/23 13:44 Lymph % (Auto) 29.6 % 12/25/23 13:44 [place] % (Auto) 12.2 % 12/25/23 13:44 Eos % (Auto) 3.5 % 12/25/23 13:44 Baso % (Auto) 0.7 % 12/25/23 13:44 Neut # (Auto) 2.93 10^3/uL (1.8-7.7) 12/25/23 13:44 Lymph # (Auto) 1.6 10^3/uL (0.8-4.8) 12/25/23 13:44 [place] # (Auto) 0.7 10^3/uL (0.2-0.9) 12/25/23 13:44 Eos # (Auto) 0.2 10^3/uL (0.0-0.8) 12/25/23 13:44 Baso # (Auto) 0.0 10^3/uL (0.0-0.1) 12/25/23 13:44 Nucleated RBC % (auto) 0 % 12/25/23 13:44 Nucleated RBCs # 0.0 /100WBC 12/25/23 13:44 Sodium 141 mmol/L (136-145) 12/25/23 13:44 Potassium 4.0 mmol/L (3.5-5.1) 12/25/23 13:44 Chloride 103 mmol/L (98-107) 12/25/23 13:44 Carbon Dioxide 24 mmol/L (22-29) 12/25/23 13:44 Anion Gap 18.0 (5-19) 12/25/23 13:44 BUN 5 mg/dL (6-20) L 12/25/23 13:44 Creatinine 0.4 mg/dL (0.7-1.2) L 12/25/23 13:44 GFR Calculation 220.9 mL/min (90-130) H 12/25/23 13:44 Glucose 92 mg/dL (65-115) 12/25/23 13:44 Calculated Osmolality 289 mOsm/kg (285-295) 12/25/23 13:44 Calcium 8.5 mg/dL (8.5-10.5) 12/25/23 13:44 Total Bilirubin 0.4 mg/dL (0.15-1.2) 12/25/23 13:44 AST 33 U/L (0-40) 12/25/23 13:44 ALT 40 U/L (0-41) 12/25/23 13:44 Alkaline Phosphatase 50 U/L (40-130) 12/25/23 13:44 Creatine Kinase 89 U/L (39-308) 12/25/23 13:44 Troponin T Baseline 12 ng/L (0-15) 12/25/23 13:44 Troponin T 120 Minute 12.46 ng/L (0-15) 12/25/23 15:28 Delta Troponin T 0.46 ABS# (0-10) 12/25/23 15:28 Total Protein 6.3 g/dL (6.6-8.7) L 12/25/23 13:44 Albumin 4.3 g/dL (3.5-5.2) 12/25/23 13:44 Globulin 2.0 g/dL (1.3-4.6) 12/25/23 13:44 Urine Color Yellow (Yellow) 12/25/23 16:12 Urine Appearance Clear (CLEAR) 12/25/23 16:12 Urine pH 6 (5-7) 12/25/23 16:12 Ur Specific [place] 1.015 (1.005-1.030) 12/25/23 16:12 Urine Protein Neg (Negative) 12/25/23 16:12 Urine Glucose (UA) Norm (Normal) 12/25/23 16:12 Urine Ketones Negative (Negative) 12/25/23 16:12 Urine Blood Neg (Negative) 12/25/23 16:12 Urine Nitrate Negative 12/25/23 16:12 Urine Bilirubin Neg (Negative) 12/25/23 16:12 Urine Urobilinogen Norm mg/dL (Negative) 12/25/23 16:12 Ur Leukocyte Esterase Negative (Negative) 12/25/23 16:12 All radiology interpretation(s) finalized by discharge Discharge Plan Discharge Patient Disposition: Home Clinical Impression: Chest pain Condition: Stable Prescriptions: Continued nitroglycerin 0.4 mg tablet, sublingual 0.4 mg sublingual Q5M Qty: 20 0RF Rx Instructions: do not exceed 3 doses per episode atorvastatin 40 mg Tablet 80 mg PO DAILY Qty: 90 3RF clopidogrel 75 mg Tablet 75 mg PO DAILY Qty: 90 3RF metoprolol succinate 25 mg Tablet Extended Release 24 Hr 12.5 mg PO DAILY Qty: 30 3RF Changed aspirin 81 mg tablet,delayed release (DR/EC) 81 mg PO QAM Qty: 90 0RF Discharge Orders: Discharge ED (Routine); Ordered 12/25/23 Ordered By: Edward Perez Referrals: Genaro Blunt MD [Primary Care Provider] - Discharge Diet: Usual diet Discharge Activity: Resume usual activity Patient Instructions: Opioid Safety, Pain Management Activity Restrictions/Additional Instructions: Thank you for choosing [facility] for your healthcare needs today. It is very important that you follow up as instructed or that you return to the Emergency Department should you have concerns or if your condition changes or worsens in any way. You were seen today with complaints of chest discomfort. Your EKG and cardiac enzymes did not show signs of acute coronary syndrome. However it is extremely important that you continue taking your medications you are given refills on all of your medications aspirin, atorvastatin, clopidogrel, metoprolol succinate, and nitroglycerin. Use these medications as prescribed you should follow-up with your doctor within the next 30 days to get a refill of your worsening or change symptoms return. Also recommend that you make a follow-up appointment with your terry cloth cutter hand as soon as you are able Coding Level of Care Code ED Exploration Manager for Jana Narayan
[2023-12-25 14:04] LABS: Basophils % 0.7 %; Eosinophils # 0.2 10^3/uL (0.0-0.8); Eosinophils % 3.5 %; Hematocrit 38.2 % (37-53); Lymphocytes # 1.6 10^3/uL (0.8-4.8); Lymphocytes % 29.6 %; Mean Corpuscular HGB Conc 34.6 g/dL (30-55); Mean Corpuscular Hemoglobin 33.8 pg (27-33); Mean Corpuscular Volume 97.9 fl (82-101); Mean Platelet Volume 11.3 fL (7.4-10.4); Monocytes # 0.7 10^3/uL (0.2-0.9); Monocytes % 12.2 %; Neutrophils # 2.93 10^3/uL (1.8-7.7); Neutrophils % 53.6 %; Nucleated Red Blood Cells % 0 %; Platelet Count 200 10^3/cmm (157-399); Red Cell Distribution Width 15.2 % (12.1-15.1); White Blood Count 5.47 10^3/uL (3.29-11.43)
[2023-12-25 14:23] LABS: Alanine Aminotransferase 40 U/L (0-41); Albumin Level 4.3 g/dL (3.5-5.2); Alkaline Phosphatase 50 U/L (40-130); Aspartate Amino Transferase 33 U/L (0-40); Blood Urea Nitrogen 5 mg/dL (6-20); Calcium 8.5 mg/dL (8.5-10.5); Carbon Dioxide 24 mmol/L (22-29); Chloride 103 mmol/L (98-107); Creatine Phosphokinase 89 U/L (39-308); Creatinine Clr Calc Pharmacy 169.6364; Glomerular Filtration Rate 220.9 mL/min (90-130); Glucose 92 mg/dL (65-115); Osmolality Calculated 289 mOsm/kg (285-295); Sodium 141 mmol/L (136-145); Total Bilirubin 0.4 mg/dL (0.15-1.2); Total Protein 6.3 g/dL (6.6-8.7)
[2023-12-25 14:24] LABS: Troponin(5th) Baseline 12 ng/L (0-15)
[2023-12-25 15:48] LABS: Troponin 5 2HR 12.46 ng/L (0-15); Troponin 5 2HR Delta 0.46 ABS# (0-10)
[2023-12-25 16:17] LABS: Add Urine Microscopic? NO; Charge for UA Resulting for Rev
[2023-12-25 16:20] LABS: Bilirubin Urine Neg (Negative); Blood Urine Neg (Negative); Glucose Urine UA Norm (Normal); Ketones Urine Negative (Negative); Leukocyte Esterase Urine Negative (Negative); Nitrate Urine Negative; Protein Urine Neg (Negative); Specific Gravity, Urine 1.015 (1.005-1.030); Urine Appearance Clear (CLEAR); Urine Color Yellow (Yellow); Urobilinogen Urine Norm (Negative); pH Urine 6 (5-7)
== END 2023-12-25 17:05 | disposition home or self-care (01) ==
PROVIDERS: Emergency Provider Family Medicine; PCP Family Medicine
DX: R07.9 Chest pain, unspecified (principal); Z79.02 Long term (current) use of antithrombotics/antiplatelets; Z79.82 Long term (current) use of aspirin; I25.2 Old myocardial infarction; Z72.0 Tobacco use
CPT/HCPCS: 36415; 71045; 80053; 81003; 82550; 84484; 85025; 93005; 99285

== ENCOUNTER 2024-01-10 07:52 | Emergency (ER) | payer SELFPAY ==
[2024-01-10] VITALS (8 sets, daily range): BP systolic 116–140; BP diastolic 74–100; PULSE 71–79; RESP 17–31; TEMP 36.4; O2SAT 90–96; BMI 21.6
--- NOTE | 2024-01-10 07:59 | XRR_ITS ---
PROCEDURE INFORMATION: Exam: XR Chest Exam date and time: 01/10/2024 8:02 AM Age: 58 years old Clinical indication: Cough and dyspnea; Additional info: Dyspnea/cough TECHNIQUE: Imaging protocol: Radiologic exam of the chest. Views: 1 view. COMPARISON: CR XR chest 1V portable [id number] 12/25/2023 1:45 PM FINDINGS: Lungs: Unremarkable. No consolidation. Pleural spaces: Unremarkable. No pleural effusion. No pneumothorax. Heart/Mediastinum: Unremarkable. No cardiomegaly. Bones/joints: Unremarkable. XR/XR chest 1V portable [id number] IMPRESSION: No acute findings.
--- NOTE | 2024-01-10 07:59 | ECG_ITS ---
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 Measurements Intervals [place] Rate: 71 P: 2 FL: 129 QRS: 31 QRSD: 91 T: -37 QT: 378 QTc: 413 Interpretive Statements SINUS RHYTHM T-WAVE ABNORMALITY, CONSIDER INFERIOR ISCHEMIA [-0.1+ mV T-WAVE IN II/aVF] Compared to ECG 12/25/2023 13:15:04 No significant change Electronically Signed On 01-10-2024 13:14:58 CDT by Dago Avalos M.D. [id number]
[2024-01-10] MEDS: aspirin 81 mg Chew Tablet 324 MG PO (08:06)
[2024-01-10 08:23] LABS: Basophils # 0.1 10^3/uL (0.0-0.1); Basophils % 0.6 %; Eosinophils # 0.1 10^3/uL (0.0-0.8); Eosinophils % 0.7 %; Hematocrit 38.5 % (37-53); Lymphocytes # 0.9 10^3/uL (0.8-4.8); Lymphocytes % 9.9 %; Mean Corpuscular Hemoglobin 34.1 pg (27-33); Mean Corpuscular Volume 100.3 fl (82-101); Mean Platelet Volume 10.9 fL (7.4-10.4); Monocytes # 0.7 10^3/uL (0.2-0.9); Monocytes % 7.6 %; Neutrophils # 7.05 10^3/uL (1.8-7.7); Neutrophils % 80.9 %; Nucleated Red Blood Cells % 0 %; Platelet Count 154 10^3/cmm (157-399); Red Blood Count 3.84 10^6/uL (3.85-5.65); Red Cell Distribution Width 17.1 % (12.1-15.1); White Blood Count 8.71 10^3/uL (3.29-11.43)
--- NOTE | 2024-01-10 08:35 | ED_ITS ---
HPI - Chest Pain 2 General: Chief Complaint: Chest Pain Stated Complaint: chest pain, abd issues Time Seen by Provider: 01/10/24 07:59 Source: patient Mode of arrival: ambulatory History of Present Illness: 58-year-old male presents to the emergen cy room with complaint of abdominal pain. States he has not been able to have a bowel movement in about a week. He does get a little bit of liquid stool at times almost like anal leakage. He has not really taken anything for constipation he denies any dysuria urgency or frequency any hematochezia melena hematemesis or coffee-ground emesis. He also reports he has some mild chest discomfort he has a history of coronary artery disease. Patient has previously had stents. He was seen about a week ago and his cardiac enzyme evaluation EKG did not show anything acute. MD complaint: chest discomfort and other (Abdominal discomfort) Onset: during rest Pain radiation: none Quality: aching Associated symptoms: Reports abdominal pain; Deny diaphoresis, dyspnea, fever(s), leg edema, nausea, palpitations, sense of impending doom, syncope or vomiting Review of Systems 2 Const: Denies: fever(s), chills or diaphoresis Card: Denies: palpitations or syncope Resp: Denies: dyspnea GI: Reports: abdominal pain and constipation; Denies: nausea or vomiting : Denies: dysuria, urinary frequency or urinary urgency Musc: Denies: neck pain or back pain Skin/Breast: Denies: rash PFSH ED 2 PFSH: Medical History Acute non-ST elevation myocardial infarction (NSTEMI) Tobacco abuse Chest pain Alcohol abuse No pertinent past medical history Surgical History No history of previous surgery No pertinent past surgical history Social History Smoking and tobacco/nicotine status: current every day tobacco/nicotine user Alcohol intake: current Alcohol intake frequency: holidays/special occasions only Physical Exam 2 Const: COMMON NORMALS: no acute distress GENERAL APPEARANCE: cooperative and comfortable ORIENTATION/CONSCIOUSNESS: Yes awake, Yes oriented to person, Yes oriented to place and Yes oriented to time HENMT: COMMON NORMALS: normocephalic, atraumatic and hearing grossly normal bilaterally HEAD & SCALP: normocephalic and atraumatic Resp: COMMON NORMALS: normal respiratory effort, No retractions, No use of accessory muscles and clear to auscultation bilaterally AUSCULTATION: clear to auscultation bilaterally Cardio: COMMON NORMALS: regular rate, regular rhythm and No murmurs present (Cardio) RATE: regular rate RHYTHM: regular rhythm GI: COMMON NORMALS: Soft to palpation and No hepatosplenomegaly present A USCULTATION: Yes normoactive bowel sounds PALPATION: Yes Soft to palpation, No Tenderness to palpation present (GI), No Guarding due to palpation present (GI) and Yes No hepatosplenomegaly present Extremity: COMMON NORMALS: normal to inspection, capillary refill normal, no clubbing, cyanosis or edema, no calf tenderness and no pedal edema Neuro: SENSORIUM/ORIENTATION: Yes oriented to person, Yes oriented to place and Yes oriented to time Skin: COMMON NORMALS: no rashes or lesions noted GENERAL SKIN EXAM: no rashes or lesions noted Course 2 Vital Signs: Vital signs: Vital Signs Temperature 97.6 F 01/10/24 07:56 Pulse Rate 79 01/10/24 10:30 Respiratory Rate 28 H 01/10/24 10:30 Blood Pressure 140/93 01/10/24 11:00 Pulse Oximetry 95 01/10/24 10:30 Oxygen Delivery Me thod Room Air 01/10/24 07:56 MDM - Chest Pain Medical Decision Making Patient constipated point of causing bladder outlet obstruction catheters placed drained 700 mL in urine and good relief of his constipation will discharge home use MiraLAX. Regular and as needed lactulose recurrence of constipation. He also complained of chest pain his cardiac enzymes are negative there is some T wave inversion in 2 3 and aVF. I discussed the EKGs with Dr. Sam who is on- call he reviewed them on the EMR he noted the T wave inversion but again the light of 2 cardiac workups in the last couple of weeks both of which were negative he does not recommend any further evaluation. Reviewed that the patient is not been taking his Plavix regularly. Told him at his last visit the importance of taking but he still has not resumed Dr. Avalos recommends as did we that he resume it to this was reiterated strongly to the patient. Medical Records I reviewed the patient's medical records. Lab Data I reviewed the patient's lab results. 01/10/24 08:17 01/10/24 08:17 Radiology Impressions Chest X-Ray 01/10/24 07:59 IMPRESSION: No acute findings. Abdomen/Pelvis CT 01/10/24 08:36 IMPRESSION: 1. Fatty infiltration of the liver. 2. Fecal stasis. 3. Distended urinary bladder. Laboratory Results WBC 8.71 10^3/uL (3.29-11.43) 01/10/24 08:17 RBC 3.84 10^6/uL (3.85-5.65) L 01/10/24 08:17 Hgb 13.10 g/dL (11.27-16.99) 01/10/24 08:17 Hct 38.5 % (37-53) 01/10/24 08:17 MCV 100.3 fl (82-101) 01/10/24 08:17 MCH 34.1 pg (27-33) H 01/10/24 08:17 MCHC 34.0 g/dL (30-55) 01/10/24 08:17 RDW 17.1 % (12.1-15.1) H 01/10/24 08:17 Plt Count 154 10^3/cmm (157-399) L 01/10/24 08:17 MPV 10.9 fL (7.4-10.4) H 01/10/24 08:17 Neut % (Auto) 80.9 % 01/10/24 08:17 Lymph % (Auto) 9.9 % 01/10/24 08:17 [place] % (Auto) 7.6 % 01/10/24 08:17 Eos % (Auto) 0.7 % 01/10/24 08:17 Baso % (Auto) 0.6 % 01/10/24 08:17 Neut # (Auto) 7.05 10^3/uL (1.8-7.7) 01/10/24 08:17 Lymph # (Auto) 0.9 10^3/uL (0.8-4.8) 01/10/24 08:17 [place] # (Auto) 0.7 10^3/uL (0.2-0.9) 01/10/24 08:17 Eos # (Auto) 0.1 10^3/uL (0.0-0.8) 01/10/24 08:17 Baso # (Auto) 0.1 10^3/uL (0.0-0.1) 01/10/24 08:17 Nucleated RBC % (auto) 0 % 01/10/24 08:17 Nucleated RBCs # 0.0 /100WBC 01/10/24 08:17 Sodium 141 mmol/L (136-145) 01/10/24 08:17 Potassium 3.8 mmol/L (3.5-5.1) 01/10/24 08:17 Chloride 98 mmol/L (98-107) 01/10/24 08:17 Carbon Dioxide 23 mmol/L (22-29) 01/10/24 08:17 Anion Gap 23.8 (5-19) H 01/10/24 08:17 BUN 10 mg/dL (6-20) 01/10/24 08:17 Creatinine 0.4 mg/dL (0.7-1.2) L 01/10/24 08:17 GFR Calculation 220.9 mL/min (90-130) H 01/10/24 08:17 Glucose 105 mg/dL (65-115) 01/10/24 08:17 Calculated Osmolality 291 mOsm/kg (285-295) 01/10/24 08:17 Calcium 8.3 mg/dL (8.5-10.5) L 01/10/24 08:17 Total Bilirubin 0.3 mg/dL (0.15-1.2) 01/10/24 08:17 AST 70 U/L (0-40) H 01/10/24 08:17 ALT 88 U/L (0-41) H 01/10/24 08:17 Alkaline Phosphatase 56 U/L (40-130) 01/10/24 08:17 Troponin T Baseline 14 ng/L (0-15) 01/10/24 08:17 Troponin T 120 Minute 13.29 ng/L (0-15) 01/10/24 09:33 Delta Troponin T -0.71 ABS# (0-10) L 01/10/24 09:33 Total Protein 6.5 g/dL (6.6-8.7) L 01/10/24 08:17 Albumin 4.4 g/dL (3.5-5.2) 01/10/24 08:17 Globulin 2.1 g/dL (1.3-4.6) 01/10/24 08:17 Lipase 22 U/L (13-60) 01/10/24 08:17 Urine Color Yellow (Yellow) 01/10/24 09:50 Urine Appearance Clear (CLEAR) 01/10/24 09:50 Urine pH 8 (5-7) H 01/10/24 09:50 Ur Specific [place] 1.005 (1.005-1.030) 01/10/24 09:50 Urine Protein 1+ (Negative) H 01/10/24 09:50 Urine Glucose (UA) Norm (Normal) 01/10/24 09:50 Urine Ketones 1+ (Negative) H 01/10/24 09:50 Urine Blood Neg (Negative) 01/10/24 09:50 Urine Nitrate Negative (Negative) 01/10/24 09:50 Urine Bilirubin Neg (Negative) 01/10/24 09:50 Urine Urobilinogen 1 mg/dL (Negative) H 01/10/24 09:50 Ur Leukocyte Esterase Negative (Negative) 01/10/24 09:50 Urine RBC None /hpf (0-2) 01/10/24 09:50 Urine WBC 0-4 /hpf (0-5) H 01/10/24 09:50 Ur Squamous Epith Cells None /hpf (0-5) 01/10/24 09:50 Amorphous Sediment Not Reportable 01/10/24 09:50 Urine Bacteria Trace /hpf (NONE) 01/10/24 09:50 All radiology interpretation(s) finalized by discharge Discharge Plan Discharge Patient Disposition: Home Clinical Impression: Constipation, Acute urinary retention, CAD (coronary artery disease), Noncompliance with medication regimen Condition: Stable Prescriptions: New Miralax 17 gram/dose powder 17 g PO DAILY Qty: 850 0RF lactulose 10 gram/15 mL (15 mL) solution 20 g PO Q2H 1 Days Qty: 360 0RF Rx Instructions: until desired laxative effect Continued atorvastatin 40 mg Tablet 80 mg PO DAILY Qty: 90 3RF clopidogrel 75 mg Tablet 75 mg PO DAILY Qty: 90 3RF metoprolol succinate 25 mg Tablet Extended Release 24 Hr 12.5 mg PO DAILY Qty: 30 3RF No Action nitroglycerin 0.4 mg tablet, sublingual 0.4 mg sublingual Q5M Qty: 20 0RF Rx Instructions: do not exceed 3 doses per episode aspirin 81 mg tablet,delayed release (DR/EC) 81 mg PO QAM Qty: 90 0RF Discharge Orders: Discharge ED (Routine); Ordered 01/10/24 Ordered By: Edward Perez Referrals: Genaro Blunt MD [Primary Care Provider] - Discharge Diet: Usual diet Discharge Activity: Increase activity as tolerated Patient Instructions: Opioid Safety, Pain Management Activity Restrictions/Additional Instructions: Thank you for choosing [facility] for your healthcare needs today. It is very important that you follow up as instructed or that you return to the Emergency Department should you have concerns or if your condition changes or worsens in any way. You were seen today for complaint of chest pain and constipation. Your constipation was severe notes it was causing your difficulty of your bladder to empty. After cath in your bladder we are able to drain 700 mL and the enema relieved some of the constipation. I would recommend you start MiraLAX regularly to prevent constipation and use lactulose as needed to relieve constipation. You should increase your fluid intake. Your cardiac workup showed negative cardiac enzymes. I reviewed your case with a diesel motor mechanic -reviewed your EKGs and cardiac enzymes and your report of symptoms. As we discussed at your previous visit it is absolutely critical that you take your Plavix and your aspirin daily because of he recent stenting done in June. If you do not take these medications it is very likely that you will develop stenosis within the stents and have another heart attack. This could potentially be fatal given the number of stents that were placed. Coding Level of Care Code ED Access Clerk for Jana Narayan
--- NOTE | 2024-01-10 08:36 | CTR_ITS ---
PROCEDURE INFORMATION: Exam: CT Abdomen And Pelvis With Contrast Exam date and time: 01/10/2024 8:52 AM Age: 58 years old Clinical indication: Abdominal pain; Localized; Lower; Prior surgery; Surgery date: 6+ months; Surgery type: Hemmorrhoids; Additional info: Abd pain TECHNIQUE: Imaging protocol: Computed tomography of the abdomen and pelvis with contrast. Radiation optimization: All CT scans at this facility use at least one of these dose optimization techniques: automated exposure control; mA and/or kV adjustment per patient size (includes targeted exams where dose is matched to clinical indication); or iterative reconstruction. Contrast material: OMNI 350; Contrast volume: 100 ml; Contrast route: INTRAVENOUS (IV); COMPARISON: CR (CHEST, ) 01/10/2024 8:02 AM RADIATION DOSE METRICS: Total DLP (mGy-cm): 347.44 FINDINGS: Lungs: Lung bases are clear as visualized. Liver: There is diffuse fatty infiltration of the liver. Hypodense foci adjacent to the falciform ligament likely represents increased deposition of fat. Vessels appear to course through this area of greater low-density. Small benign-appearing hepatic cyst is also noted. The liver is otherwise normal. Gallbladder and biliary ducts: Normal. No calcified stones. No ductal dilation. Pancreas: Normal. No ductal dilation. Spleen: Normal. No splenomegaly. Adrenal glands: Normal. No mass. Kidneys and ureters: Normal. No hydronephrosis. Stomach and bowel: No dilated loops of large or small bowel is appreciated. No bowel wall thickening is noted. There is a moderate amount of stool within the colon. There appears to be a suture line involving the rectum. Appendix: The appendix is not definitely identified. Intraperitoneal space: Unremarkable. No free air. No significant fluid collection. Vasculature: The aorta is normal in caliber. There is calcified plaque involving the aorta and its branch vessels. Lymph nodes: Unremarkable. No enlarged lymph nodes. Urinary bladder: The urinary bladder is distended. Recommend correlation for bladder outlet obstruction. Reproductive: Unremarkable as visualized. Bones/joints: Unremarkable. No acute fracture. Soft tissues: Unremarkable. CT/CT abdomen pelvis w con* [id number] IMPRESSION: 1. Fatty infiltration of the liver. 2. Fecal stasis. 3. Distended urinary bladder.
[2024-01-10 08:39] LABS: Alanine Aminotransferase 88 U/L (0-41); Albumin Level 4.4 g/dL (3.5-5.2); Alkaline Phosphatase 56 U/L (40-130); Anion Gap 23.8 (5-19); Aspartate Amino Transferase 70 U/L (0-40); Blood Urea Nitrogen 10 mg/dL (6-20); Calcium 8.3 mg/dL (8.5-10.5); Carbon Dioxide 23 mmol/L (22-29); Chloride 98 mmol/L (98-107); Globulin 2.1 g/dL (1.3-4.6); Glomerular Filtration Rate 220.9 mL/min (90-130); Glucose 105 mg/dL (65-115); Lipase 22 U/L (13-60); Osmolality Calculated 291 mOsm/kg (285-295); Potassium 3.8 mmol/L (3.5-5.1); Sodium 141 mmol/L (136-145); Total Bilirubin 0.3 mg/dL (0.15-1.2); Total Protein 6.5 g/dL (6.6-8.7)
[2024-01-10 08:40] LABS: Troponin(5th) Baseline 14 ng/L (0-15)
[2024-01-10 08:50] LABS: Creatinine Clr Calc Pharmacy 172.2194
[2024-01-10] MEDS: iohexol 350 mg/mL 500 mL Btl (per mL) IV (09:00)
--- NOTE | 2024-01-10 10:03 | ECG_ITS ---
[facility] Test Date: 2024-01-10 Pat Name: Ayaz Llanes Department: Room: Gender: Male Training Officer: : 1965 Requested By: Edward Gallegos Order Number: [id number] Reading MD: Dago Avalos M.D. Measurements Intervals [place] Rate: 63 P: 16 ID: [id number] QRS: 22 QRSD: 95 T: -37 QT: 412 QTc: 424 Interpretive Statements SINUS RHYTHM WITH OCCASIONAL VENTRICULAR PREMATURE COMPLEXES MODERATE T-WAVE ABNORMALITY, CONSIDER INFERIOR ISCHEMIA [-0.1+ mV T-WAVE IN II/aVF] Compared to ECG 01/10/2024 08:01:10 T-wave abnormality still present Electronically Signed On 01-10-2024 13:17:32 CDT by Dago Avalos M.D. [id number]
[2024-01-10 10:14] LABS: Troponin 5 2HR 13.29 ng/L (0-15)
[2024-01-10 10:15] LABS: Troponin 5 2HR Delta -0.71 ABS# (0-10)
[2024-01-10 11:31] LABS: Urine Appearance Clear (CLEAR); Urine Color Yellow (Yellow)
[2024-01-10 11:32] LABS: Add Urine Microscopic? YES; Bacteria Urine TRACE /hpf; Bilirubin Urine Neg (Negative); Blood Urine Neg (Negative); Glucose Urine UA Norm (Normal); Ketones Urine 1+ (Negative); Leukocyte Esterase Urine Negative (Negative); Nitrate Urine Negative (Negative); Protein Urine 1+ (Negative); Specific Gravity, Urine 1.005 (1.005-1.030); Urobilinogen Urine 1 mg/dL (Negative); WBC Urine 0-4 /hpf (0-5); pH Urine 8 (5-7)
[2024-01-10 11:33] LABS: Add Urine Culture? No
== END 2024-01-10 12:41 | disposition home or self-care (01) ==
PROVIDERS: Emergency Provider Family Medicine; PCP Family Medicine
DX: K59.00 Constipation, unspecified (principal); R33.9 Retention of urine, unspecified; I25.10 Atherosclerotic heart disease of native coronary artery without angina pectoris; Z91.148 Patient's other noncompliance with medication regimen for other reason; Z79.02 Long term (current) use of antithrombotics/antiplatelets; Z79.82 Long term (current) use of aspirin; I25.2 Old myocardial infarction; Z72.0 Tobacco use
CPT/HCPCS: 36415; 71045; 74177; 80053; 81001; 83690; 84484; 85025; 93005; 99285; Q9967

== ENCOUNTER 2024-06-08 09:41 | Emergency (ER) | payer MEDICAID, SELFPAY ==
[2024-06-08 09:48] VITALS: BP 132/87; PULSE 79; RESP 18; TEMP 36.7; O2SAT 95; BMI 24.1
--- NOTE | 2024-06-08 09:53 | XR_ITS ---
WS: [id number] Exam: XR chest 1V portable [id number] Date/Time of Exam: 06/08/2024 9:53 AM Reason For Exam: dyspnea/cough Comparison 01/10/2024. Lungs are hyperinflated and clear. Normal cardiomediastinal silhouette and regional bony elements. De generative change and mild scoliosis of the T-spine. XR/XR chest 1V portable [id number] IMPRESSION: 1. No acute cardiopulmonary finding. Hyperinflation.
--- NOTE | 2024-06-08 09:54 | ECG_ITS ---
[facility] Test Date: 2024-06-08 Pat Name: Ayaz Llanes Department: Room: Gender: Male Javascript Front End Developer: : 1965 Requested By: Edward Gallegos Order Number: [id number] Lalo MD: Aura Lopez M.D. Measurements Intervals [place] Rate: 86 P: 76 CT: 118 QRS: 42 QRSD: 101 T: 32 QT: 350 QTc: 420 Interpretive Statements SINUS RHYTHM WITH SHORT CT INTERVAL Compared to ECG 01/10/2024 10:03:[address] interval now present Ventricular premature complex(es) no longer present T-wave abnormality no longer present Possible ischemia no longer present Electronically Signed On 06-09-2024 01:01:35 UNDERGROUND TRUCK OPERATOR by Aura Lopez M.D. [id number]
[2024-06-08] MEDS: aspirin 81 mg Chew Tablet 324 MG PO (10:26)
--- NOTE | 2024-06-08 10:27 | ED_ITS ---
HPI - Chest Pain 2 General: Chief Complaint: Chest Pain Stated Complaint: chest pain Time Seen by Provider: 06/08/24 09:55 History of Present Illness: 58-year-old male presents emergency room complaining of chest pain for the last 2 days. Has a history of coronary disease and has had angioplasty with stents in the past has been off of his Plavix last several days because of financial issues getting the prescription refilled. He intermittently gets chest pain is not particular exertion with associated with activity or rest. He does notice at times when he works very hard he will get more chest pressure. Of late he said burst of chest pain that lasted a few seconds at a time he has been somewhat short of breath as well. Associated symptoms: Deny abdominal pain, dyspnea or fever(s) Related Data Previous Rx's Medication Instructions Recorded polyethylene glycol 3350 17 17 g PO DAILY #850 grams 01/10/24 gram/dose oral powder (Miralax) aspirin 81 mg tablet,delayed 81 mg PO DAILY #30 tabs 06/08/24 release atorvastatin 80 mg tablet 80 mg PO DAILY #30 tabs 06/08/24 clopidogrel 75 mg tablet 75 mg PO DAILY #30 tabs 06/08/24 metoprolol succinate 25 mg capsule 12.5 mg (1/2 x 25 mg) PO DAILY #15 06/08/24 sprinkle, ext. release 24 hr ea nitroglycerin 0.4 mg sublingual 0.4 mg sublingual Q5M PRN chest 06/08/24 tablet pain #30 tabs Allergies Allergy/AdvReac Type Severity Reaction Status Date / Time No Known Allergies Allergy Verified 07/05/23 09:47 Review of Systems 2 Const: Denies: fever(s) or chills Card: Reports: chest pain Resp: Denies: dyspnea GI: Denies: abdominal pain : Denies: dysuria, urinary frequency or urinary urgency Musc: Denies: neck pain or back pain Skin/Breast: Denies: rash PFSH ED 2 PFSH: Medical History Acute non-ST elevation myocardial infarction (NSTEMI) Tobacco abuse Chest pain Alcohol abuse No pertinent past medical history Surgical History No history of previous surgery No pertinent past surgical history Social History Smoking and tobacco/nicotine status: current every day tobacco/nicotine user Alcohol intake: current Alcohol intake frequency: holidays/special occasions only Physical Exam 2 Const: COMMON NORMALS: no acute distress GENERAL APPEARANCE: cooperative and comfortable ORIENTATION/CONSCIOUSNESS: Yes awake, Yes oriented to person, Yes oriented to place and Yes oriented to time HENMT: COMMON NORMALS: normocephalic, atraumatic and hearing grossly normal bilaterally HEAD & SCALP: normocephalic and atraumatic Resp: COMMON NORMALS: normal respiratory effort, No retractions, No use of accessory muscles and clear to auscultation bilaterally AUSCULTATION: clear to auscultation bilaterally Cardio: COMMON NORMALS: regular rate, regular rhythm and No murmurs present (Cardio) RATE: regular rate RHYTHM: regular rhythm GI: COMMON NORMALS: Soft to palpation and No hepatosplenomegaly present A USCULTATION: Yes normoactive bowel sounds PALPATION: Yes Soft to palpation, No Tenderness to palpation present (GI), No Guarding due to palpation present (GI) and Yes No hepatosplenomegaly present Extremity: COMMON NORMALS: normal to inspection, capillary refill normal, no clubbing, cyanosis or edema, no calf tenderness and no pedal edema Neuro: SENSORIUM/ORIENTATION: Yes oriented to person, Yes oriented to place and Yes oriented to time Skin: COMMON NORMALS: no rashes or lesions noted GENERAL SKIN EXAM: no rashes or lesions noted Course 2 Vital Signs: Vital signs: Vital Signs Temperature 98.1 F 06/08/24 09:48 Pulse Rate 78 06/08/24 13:34 Respiratory Rate 15 06/08/24 13:00 Blood Pressure 128/75 06/08/24 13:34 Pulse Oximetry 98 06/08/24 13:34 Oxygen Delivery Me thod Room Air 06/08/24 13:00 MDM - Chest Pain Medical Decision Making Cardiac enzymes negative EKG does not show any acute changes. Will discharge patient home reviewed with Dr. Barrientos. Refilled his medications encouraged him to follow-up through the [facility] pharmacy since he will be able to get his medicines much cheaper there. Additionally we will have him go to crisis stabilization so he could gain assistance accessing community services. Medical Records I reviewed the patient's medical records. Lab Data I reviewed the patient's lab results. 06/08/24 10:46 06/08/24 10:46 Radiology Impressions Chest X-Ray 06/08/24 09:53 IMPRESSION: 1. No acute cardiopulmonary finding. Hyperinflation. Laboratory Results WBC 5.50 10^3/uL (3.29-11.43) 06/08/24 10:46 RBC 3.84 10^6/uL (3.85-5.65) L 06/08/24 10:46 Hgb 12.80 g/dL (11.27-16.99) 06/08/24 10:46 Hct 37.9 % (37-53) 06/08/24 10:46 MCV 98.7 fl (82-101) 06/08/24 10:46 MCH 33.3 pg (27-33) H 06/08/24 10:46 MCHC 33.8 g/dL (30-55) 06/08/24 10:46 RDW 13.7 % (12.1-15.1) 06/08/24 10:46 Plt Count 142 10^3/cmm (157-399) L 06/08/24 10:46 MPV 11.4 fL (7.4-10.4) H 06/08/24 10:46 Neut % (Auto) 66.6 % 06/08/24 10:46 Lymph % (Auto) 22.7 % 06/08/24 10:46 [place] % (Auto) 8.7 % 06/08/24 10:46 Eos % (Auto) 1.3 % 06/08/24 10:46 Baso % (Auto) 0.5 % 06/08/24 10:46 Neut # (Auto) 3.66 10^3/uL (1.8-7.7) 06/08/24 10:46 Lymph # (Auto) 1.3 10^3/uL (0.8-4.8) 06/08/24 10:46 [place] # (Auto) 0.5 10^3/uL (0.2-0.9) 06/08/24 10:46 Eos # (Auto) 0.1 10^3/uL (0.0-0.8) 06/08/24 10:46 Baso # (Auto) 0.0 10^3/uL (0.0-0.1) 06/08/24 10:46 Nucleated RBC % (auto) 0 % 06/08/24 10:46 Nucleated RBCs # 0.0 /100WBC 06/08/24 10:46 Sodium 137 mmol/L (136-145) 06/08/24 10:46 Potassium 4.0 mmol/L (3.5-5.1) 06/08/24 10:46 Chloride 99 mmol/L (98-107) 06/08/24 10:46 Carbon Dioxide 22 mmol/L (22-29) 06/08/24 10:46 Anion Gap 20.0 (5-19) H 06/08/24 10:46 BUN 9 mg/dL (6-20) 06/08/24 10:46 Creatinine 0.5 mg/dL (0.7-1.2) L 06/08/24 10:46 GFR Calculation 170.8 mL/min (90-130) H 06/08/24 10:46 Glucose 134 mg/dL (65-115) H 06/08/24 10:46 Calculated Osmolality 285 mOsm/kg (285-295) 06/08/24 10:46 Calcium 8.4 mg/dL (8.5-10.5) L 06/08/24 10:46 Total Bilirubin 0.2 mg/dL (0.15-1.2) 06/08/24 10:46 AST 36 U/L (0-40) 06/08/24 10:46 ALT 24 U/L (0-41) 06/08/24 10:46 Alkaline Phosphatase 56 U/L (40-130) 06/08/24 10:46 Troponin T Baseline 8 ng/L (0-15) 06/08/24 10:46 Troponin T 120 Minute 7.37 ng/L (0-15) 06/08/24 12:38 Delta Troponin T -0.63 ABS# (0-10) L 06/08/24 12:38 Total Protein 6.7 g/dL (6.6-8.7) 06/08/24 10:46 Albumin 4.3 g/dL (3.5-5.2) 06/08/24 10:46 Globulin 2.4 g/dL (1.3-4.6) 06/08/24 10:46 All radiology interpretation(s) finalized by discharge Discharge Plan Discharge Patient Disposition: Home Clinical Impression: Atypical chest pain, History of coronary artery disease Condition: Stable Prescriptions: New aspirin 81 mg tablet,delayed release (DR/EC) 81 mg PO DAILY Qty: 30 0RF atorvastatin 80 mg tablet 80 mg PO DAILY Qty: 30 0RF clopidogrel 75 mg tablet 75 mg PO DAILY Qty: 30 0RF metoprolol succinate 25 mg capsule,sprinkle,ER 24hr 12.5 mg PO DAILY Qty: 15 0RF nitroglycerin 0.4 mg tablet, sublingual 0.4 mg sublingual Q5M PRN (Reason: chest pain) Qty: 30 0RF Rx Instructions: do not exceed 3 doses per episode Discontinued nitroglycerin 0.4 mg tablet, sublingual 0.4 mg sublingual Q5M Qty: 20 0RF Rx Instructions: do not exceed 3 doses per episode atorvastatin 40 mg Tablet 80 mg PO DAILY Qty: 90 3RF clopidogrel 75 mg Tablet 75 mg PO DAILY Qty: 90 3RF aspirin 81 mg tablet,delayed release (DR/EC) 81 mg PO QAM Qty: 90 0RF metoprolol succinate 25 mg Tablet Extended Release 24 Hr 12.5 mg PO DAILY Qty: 30 3RF No Action polyethylene glycol 3350 [Miralax] 17 gram/dose powder 17 g PO DAILY Qty: 850 0RF Discharge Orders: Discharge ED (Routine); Ordered 06/08/24 Ordered By: Edward Perez Referrals: Genaro Blunt MD [Primary Care Provider] - Discharge Diet: Usual diet Discharge Activity: Resume usual activity Patient Instructions: Opioid Safety, Pain Management Activity Restrictions/Additional Instructions: Thank you for choosing [facility] for your healthcare needs today. It is very important that you follow up as instructed or that you return to the Emergency Department should you have concerns or if your condition changes or worsens in any way. You were seen emergency room when chest pain your cardiac enzymes and EKG were normal. It is very important that you restart your medications these were sent to the [facility] pharmacy they have a program there to get your medicines at significantly reduced cost. After discharge from the emergency room the staff will bring you to the crisis stabilization unit where they can help you access community resources. Coding Level of Care Code ED Drapery And Upholstery Measurer for Jana Narayan
--- NOTE | 2024-06-08 10:59 | PC.PHAR ---
Pt states did not have insurance and could not afford to have his medications filled from June 2023. Pt takes only the 81mg aspirin. I left his previous meds on his chart since pt is established now with [place] Medicaid and can get medications covered.
[2024-06-08 11:21] VITALS: BP 114/84; PULSE 101; O2SAT 97
[2024-06-08 11:21] LABS: Basophils % 0.5 %; Eosinophils # 0.1 10^3/uL (0.0-0.8); Eosinophils % 1.3 %; Hematocrit 37.9 % (37-53); Lymphocytes # 1.3 10^3/uL (0.8-4.8); Lymphocytes % 22.7 %; Mean Corpuscular HGB Conc 33.8 g/dL (30-55); Mean Corpuscular Hemoglobin 33.3 pg (27-33); Mean Corpuscular Volume 98.7 fl (82-101); Mean Platelet Volume 11.4 fL (7.4-10.4); Monocytes # 0.5 10^3/uL (0.2-0.9); Monocytes % 8.7 %; Neutrophils # 3.66 10^3/uL (1.8-7.7); Neutrophils % 66.6 %; Nucleated Red Blood Cells % 0 %; Platelet Count 142 10^3/cmm (157-399); Red Blood Count 3.84 10^6/uL (3.85-5.65); Red Cell Distribution Width 13.7 % (12.1-15.1)
--- NOTE | 2024-06-08 11:41 | PC.NURSE ---
this nurse assumed care of pt at 1100.
[2024-06-08 11:42] LABS: Alanine Aminotransferase 24 U/L (0-41); Albumin Level 4.3 g/dL (3.5-5.2); Alkaline Phosphatase 56 U/L (40-130); Aspartate Amino Transferase 36 U/L (0-40); Blood Urea Nitrogen 9 mg/dL (6-20); Calcium 8.4 mg/dL (8.5-10.5); Carbon Dioxide 22 mmol/L (22-29); Chloride 99 mmol/L (98-107); Creatinine Clr Calc Pharmacy 143.9747; Globulin 2.4 g/dL (1.3-4.6); Glomerular Filtration Rate 170.8 mL/min (90-130); Glucose 134 mg/dL (65-115); Osmolality Calculated 285 mOsm/kg (285-295); Sodium 137 mmol/L (136-145); Total Bilirubin 0.2 mg/dL (0.15-1.2); Total Protein 6.7 g/dL (6.6-8.7)
[2024-06-08 11:43] LABS: Troponin(5th) Baseline 8 ng/L (0-15)
--- NOTE | 2024-06-08 11:45 | ECG_ITS ---
[facility] Test Date: 2024-06-08 Pat Name: Ayaz Llanes Department: Room: Gender: Male Resolution Specialist: : 1965 Requested By: Edward Gallegos Order Number: [id number] Lalo MD: Aura Lopez M.D. Measurements Intervals [place] Rate: 73 P: 68 MA: 130 QRS: 20 QRSD: 110 T: -14 QT: 398 QTc: 439 Interpretive Statements SINUS RHYTHM POSSIBLE RIGHT VENTRICULAR CONDUCTION DELAY [RSR (QR) IN V1/V2] NONSPECIFIC T-WAVE ABNORMALITY Compared to ECG 06/08/2024 09:47:53 T-wave abnormality now present Short MA interval no longer present Electronically Signed On 06-09-2024 01:08:48 ICE CREAM DISPENSER by Aura Lopez M.D. [id number]
[2024-06-08 11:48] VITALS: BP 127/76; PULSE 75; RESP 18; O2SAT 94
[2024-06-08 12:30] VITALS: BP 116/76; PULSE 67; RESP 15; O2SAT 94
[2024-06-08 13:00] VITALS: BP 128/75; PULSE 78; RESP 15; O2SAT 97
[2024-06-08 13:06] LABS: Troponin 5 2HR 7.37 ng/L (0-15); Troponin 5 2HR Delta -0.63 ABS# (0-10)
[2024-06-08 13:34] VITALS: BP 128/75; PULSE 78; O2SAT 98
== END 2024-06-08 13:36 | disposition home or self-care (01) ==
PROVIDERS: Emergency Provider Family Medicine; PCP Family Medicine
DX: R07.89 Other chest pain (principal); I25.10 Atherosclerotic heart disease of native coronary artery without angina pectoris; Z79.02 Long term (current) use of antithrombotics/antiplatelets; Z79.82 Long term (current) use of aspirin
CPT/HCPCS: 36415; 71045; 80053; 84484; 85025; 93005; 99285

== ENCOUNTER 2024-08-05 19:29 | Inpatient (IN) | payer MEDICAID, SELFPAY ==
[2024-08-05] VITALS (7 sets, daily range): BP systolic 125–130; BP diastolic 83–94; PULSE 86–108; RESP 22–26; TEMP 36.9; O2SAT 90–96; BMI 25.0
--- NOTE | 2024-08-05 19:36 | XRR_ITS ---
PROCEDURE INFORMATION: Exam: XR Chest Exam date and time: 08/05/2024 7:47 PM Age: 58 years old Clinical indication: Shortness of breath; Additional info: SOB TECHNIQUE: Imaging protocol: Radiologic exam of the chest. Views: 1 view. COMPARISON: CR XR chest 1V portable [id number] 06/08/2024 10:05 AM FINDINGS: Lungs: There is mild ill-defined reticular opacity in the lower lungs bilaterally, new since 06/08/2024. There is no focal consolidation. Pleural spaces: There is no pleural effusion or pneumothorax. Heart/Mediastinum: Cardiomediastinal contours are unremarkable. Bones/joints: Bones are unremarkable. XR/XR chest 1V portable [id number] IMPRESSION: Mild bilateral lower lung opacities. Nonspecific finding. Possible subsegmental atelectasis, infection or aspiration.
--- NOTE | 2024-08-05 19:41 | W.ED.SOB ---
HPI - SOB/Dyspnea General: Chief Complaint: Shortness of Breath/Dyspnea Stated Complaint: SOB Time Seen by Provider: 08/05/24 19:30 Source: patient Mode of arrival: ambulatory Limitations: no limitations History of Present Illness: HPI Narrative: 58-year-old male who has a long history of heavy smoking unknown if he has COPD has never been formally diagnosed but states he has had increasing shortness of breath over the last 3 days. He states that he has been having cough congestion feeling ill over the last 3 days he has been having increasing shortness of breath he is requiring 5 L of oxygen here. He does not wear oxygen at home. Denies any pain Associated symptoms: Reports fever(s); Deny abdominal pain, chest pain, nausea or vomiting Related Data Previous Rx's ?Medication ?Instructions ?Recorded polyethylene glycol 3350 17 17 g PO DAILY #850 grams 01/10/24 gram/dose oral powder (Miralax) aspirin 81 mg tablet,delayed 81 mg PO DAILY #30 tabs 06/08/24 release atorvastatin 80 mg tablet 80 mg PO DAILY #30 tabs 06/08/24 clopidogrel 75 mg tablet 75 mg PO DAILY #30 tabs 06/08/24 metoprolol succinate 25 mg capsule 12.5 mg (1/2 x 25 mg) PO DAILY #15 06/08/24 sprinkle, ext. release 24 hr ea nitroglycerin 0.4 mg sublingual 0.4 mg sublingual Q5M PRN chest 06/08/24 tablet pain #30 tabs Allergies Allergy/AdvReac Type Severity Reaction Status Date / Time No Known Allergies Allergy Verified 07/05/23 09:47 Review of Systems Const: Reports: fever(s), chills, body aches and fatigue; Denies: change in appetite ENMT: Denies: throat pain or dental pain Card: Denies: chest pain Resp: Reports: dyspnea and productive cough GI: Denies: abdominal pain, nausea, vomiting or diarrhea : Denies: dysuria Musc: Denies: neck pain or back pain Skin/Breast: Denies: rash Neuro: Denies: headache(s) PFSH ED PFSH: Medical History Acute non-ST elevation myocardial infarction (NSTEMI) Tobacco abuse Chest pain Alcohol abuse No pertinent past medical history Surgical History No history of previous surgery No pertinent past surgical history Social History Smoking and tobacco/nicotine status: current every day tobacco/nicotine user Alcohol intake: current Alcohol intake frequency: holidays/special occasions only Physical Exam Const: COMMON NORMALS: patient oriented x3 GENERAL APPEARANCE: in distress HENMT: COMMON NORMALS: normocephalic and atraumatic HEAD & SCALP: normocephalic and atraumatic Eye: COMMON NORMALS: conjunctivae normal CONJUNCTIVA: Yes conjunctivae normal Neck/C-Spine: COMMON NORMALS: full ROM and supple Chest: COMMONS NORMALS: normal inspection of the chest Resp: COMMON NORMALS: No retractions and No use of accessory muscles EFFORT & INSPECTION: Yes respiratory distress AUSCULTATION: wheezes Cardio: COMMON NORMALS: regular rate, regular rhythm and No murmurs present (Cardio) RATE: regular rate RHYTHM: regular rhythm GI: COMMON NORMALS: Normal to inspection, nondistended, normoactive bowel sounds present, Soft to palpation, non-tender and no masses PALPATION: Yes Soft to palpation Extremity: COMMON NORMALS: normal to inspection and full ROM Neuro: COMMON NORMALS: patient oriented x3, moves all extremities and no focal motor deficits Psych: COMMON NORMALS: mental status grossly normal, Normal thought process present and cooperative THOUGHT PROCESS: Normal thought process present Skin: COMMON NORMALS: no rashes or lesions noted and no wounds GENERAL SKIN EXAM: no rashes or lesions noted Course Vital Signs: Vital signs: Vital Signs Temperature 98.5 F 08/05/24 19:30 Pulse Rate 102 H 08/05/24 20:25 Respiratory Rate 26 H 08/05/24 20:25 Blood Pressure 125/88 08/05/24 19:30 Pulse Oximetry 93 08/05/24 20:25 Oxygen Delivery Me thod Nasal Cannula 08/05/24 20:25 Oxygen Flow Rate 5 08/05/24 20:25 MDM - SOB/Dyspnea Medical Decision Making Patient presents here with shortness of breath cough did test positive for influenza he is requiring 5 to 6 L of oxygen here spoke to the hospitalist will admit at this time. Medical Records I reviewed the patient's medical records. Lab Data I reviewed the patient's lab results. 08/05/24 19:18 08/05/24 19:18 Labs/Radiology: Radiology Impressions Chest X-Ray 08/05/24 19:36 IMPRESSION: Mild bilateral lower lung opacities. Nonspecific finding. Possible subsegmental atelectasis, infection or aspiration. Laboratory Results WBC 4.97 10^3/uL (3.29-11.43) 08/05/24 19:18 RBC 4.04 10^6/uL (3.85-5.65) 08/05/24 19:18 Hgb 14.40 g/dL (11.27-16.99) 08/05/24 19:18 Hct 41.1 % (37-53) 08/05/24 19:18 MCV 101.7 fl (82-101) H 08/05/24 19:18 MCH 35.6 pg (27-33) H 08/05/24 19:18 MCHC 35.0 g/dL (30-55) 08/05/24 19:18 RDW 14.2 % (12.1-15.1) 08/05/24 19:18 Plt Count 144 10^3/cmm (157-399) L 08/05/24 19:18 MPV 13.1 fL (7.4-10.4) H 08/05/24 19:18 Lymph % (Auto) Not Reportable 08/05/24 19:18 [place] % (Auto) Not Reportable 08/05/24 19:18 Lymph # (Auto) Not Reportable 08/05/24 19:18 [place] # (Auto) Not Reportable 08/05/24 19:18 Total Counted 100 (0-100) 08/05/24 19:18 Atypical Lymphs % Not Reportable 08/05/24 19:18 Absolute Neutrophils 2.8 10^3/cmm (1.4-6.5) 08/05/24 19:18 Segmented Neutrophils 41 % 08/05/24 19:18 Band Neutrophils 16.0 % 08/05/24 19:18 Lymphocytes (Manual) 26 % 08/05/24 19:18 Monocytes (Manual) 14.0 % 08/05/24 19:18 Absolute Monocytes 0.7 10^3/cmm (0.1-0.6) H 08/05/24 19:18 Eosinophils (Manual) 0 % 08/05/24 19:18 Absolute Eosinophils 0.0 10^3/cmm (0.0-0.7) 08/05/24 19:18 Basophils (Manual) 0.0 % 08/05/24 19:18 Absolute Basophils 0.0 10^3/cmm (0.0-0.2) 08/05/24 19:18 Metamyelocytes 3.0 % 08/05/24 19:18 Platelet Estimate Decreased (Normal) 08/05/24 19:18 Sodium 130 mmol/L (136-145) L 08/05/24 19:18 Potassium 3.5 mmol/L (3.5-5.1) 08/05/24 19:18 Chloride 86 mmol/L (98-107) L 08/05/24 19:18 Carbon Dioxide 22 mmol/L (22-29) 08/05/24 19:18 Anion Gap 25.5 (5-19) H 08/05/24 19:18 BUN 6 mg/dL (6-20) 08/05/24 19:18 Creatinine 0.5 mg/dL (0.7-1.2) L 08/05/24 19:18 GFR Calculation 170.8 mL/min (90-130) H 08/05/24 19:18 Glucose 168 mg/dL (65-115) H 08/05/24 19:18 Calculated Osmolality 271 mOsm/kg (285-295) L 08/05/24 19:18 Calcium 9.5 mg/dL (8.5-10.5) 08/05/24 19:18 Total Bilirubin 1.0 mg/dL (0.15-1.2) 08/05/24 19:18 AST 61 U/L (0-40) H 08/05/24 19:18 ALT 47 U/L (0-41) H 08/05/24 19:18 Alkaline Phosphatase 116 U/L (40-130) 08/05/24 19:18 NT-Pro-B Natriuret Pep 1536 pg/mL (0-125) H 08/05/24 19:18 Total Protein 7.7 g/dL (6.6-8.7) 08/05/24 19:18 Albumin 3.8 g/dL (3.5-5.2) 08/05/24 19:18 Globulin 3.9 g/dL (1.3-4.6) 08/05/24 19:18 Coronavirus (PCR) Negative (Negative) 08/05/24 19:45 Influenza A (PCR) Positive (Negative) 08/05/24 19:45 Influenza Type B (PCR) Negative (Negative) 08/05/24 19:45 RSV (PCR) Negative (Negative) 08/05/24 19:45 All radiology interpretation(s) finalized by discharge EKG Data EKG 1: I personally reviewed and interpreted this EKG as follows: EKG Interpretation Date: 08/05/24 EKG interpretation time: 20:50 Interpretation: sinus tach hr [address] or t wave abnormalities qrs 92 qtc 384 Discharge Plan Discharge Patient Disposition: Admitted As Inpatient Clinical Impression: Influenza A, Acute respiratory failure with hypoxia Condition: Stable Prescriptions: No Action polyethylene glycol 3350 [Miralax] 17 gram/dose powder 17 g PO DAILY Qty: 850 0RF aspirin 81 mg tablet,delayed release (DR/EC) 81 mg PO DAILY Qty: 30 0RF atorvastatin 80 mg tablet 80 mg PO DAILY Qty: 30 0RF clopidogrel 75 mg tablet 75 mg PO DAILY Qty: 30 0RF metoprolol succinate 25 mg capsule,sprinkle,ER 24hr 12.5 mg PO DAILY Qty: 15 0RF nitroglycerin 0.4 mg tablet, sublingual 0.4 mg sublingual Q5M PRN (Reason: chest pain) Qty: 30 0RF Rx Instructions: do not exceed 3 doses per episode Referrals: Genaro Blunt MD [Primary Care Provider] - Print Language: [place] Coding Level of Care Code ED Salvage Winder And Inspector for Chg Helene
[2024-08-05] MEDS: methylPREDNISolone sod succ 125 mg/2 mL INJ IV (19:45)
[2024-08-05 19:57] LABS: Hematocrit 41.1 % (37-53); Mean Corpuscular Hemoglobin 35.6 pg (27-33); Mean Corpuscular Volume 101.7 fl (82-101); Mean Platelet Volume 13.1 fL (7.4-10.4); Platelet Count 144 10^3/cmm (157-399); Red Blood Count 4.04 10^6/uL (3.85-5.65); Red Cell Distribution Width 14.2 % (12.1-15.1); White Blood Count 4.97 10^3/uL (3.29-11.43)
[2024-08-05] MEDS: albuterol 2.5 mg/3 mL Neb INHALATION (20:02)
[2024-08-05] MEDS: ipratropium-albuterol 3 mL Neb INHALATION (20:02)
[2024-08-05 20:25] LABS: Alanine Aminotransferase 47 U/L (0-41); Albumin Level 3.8 g/dL (3.5-5.2); Alkaline Phosphatase 116 U/L (40-130); Aspartate Amino Transferase 61 U/L (0-40); Blood Urea Nitrogen 6 mg/dL (6-20); Calcium 9.5 mg/dL (8.5-10.5); Carbon Dioxide 22 mmol/L (22-29); Chloride 86 mmol/L (98-107); Creatinine Clr Calc Pharmacy 146.0411; Globulin 3.9 g/dL (1.3-4.6); Glomerular Filtration Rate 170.8 mL/min (90-130); Glucose 168 mg/dL (65-115); NT Pro B Type Natriuretic Pept 1536 pg/mL (0-125); Osmolality Calculated 271 mOsm/kg (285-295); Sodium 130 mmol/L (136-145); Total Protein 7.7 g/dL (6.6-8.7)
[2024-08-05 20:39] LABS: Anion Gap 25.5 (5-19); Potassium 3.5 mmol/L (3.5-5.1)
--- NOTE | 2024-08-05 20:50 | ECG_ITS ---
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 Measurements Intervals [place] Rate: 103 P: 48 ID: [id number] QRS: 10 QRSD: 92 T: 5 QT: 324 QTc: 425 Interpretive Statements SINUS TACHYCARDIA Compared to ECG 06/08/2024 11:45:11 Sinus rhythm no longer present T-wave abnormality no longer present Electronically Signed On 08-05-2024 21:47:48 COOK CHILL TECHNICIAN by Anish Rocha M.D. [id number] [id number]
[2024-08-05 20:52] LABS: Total Cells Counted 100 (0-100)
[2024-08-05 20:53] LABS: Absolute Neutrophil 2.8 10^3/cmm (1.4-6.5); Band Neutrophils Absolute 0.8 10^3/cmm (0.0-1.2); Eosinophils 0 %; Lymphocytes 26 %; Monocytes Absolute 0.7 10^3/cmm (0.1-0.6); Platelet Estimate Decreased (Normal); Segmented Neutrophils 41 %
[2024-08-05 20:57] LABS: Influenza A POSITIVE (Negative); Influenza B NEGATIVE (Negative); Respiratory Syncytial Virus Ce NEGATIVE (Negative); SARS-CoV-2 PCR NEGATIVE (Negative)
--- NOTE | 2024-08-05 21:06 | P.HP_ITS ---
Providers/Chief Complaint 2 Primary Care Provider: Genaro Blunt MD Chief Complaint: SOB History of Present Illness Ayaz Llanes is a 58 year old male who recently came homeless, living in his truck, presented with chief complaint of shortness of breath, fever, cough. Patient is stating that he has been sick for last 3 days, he recently got exposure to him and he was extremely sick who was producing green sputum. Patient is stating that after 2 days of exposure he started becoming sick with subjective fever, productive cough, green sputum production, generalized weakness and fatigue that prompted her visit to the ER. He is requiring 5 L nasal cannula. Patient smokes 1 pack/day, does not drink alcohol. Does not use oxygen at baseline. Has been compliant with his aspirin no recent chest pain significant diarrhea or vomiting. Requested echo for high BNP, chest x-ray atelectasis versus mild pleural effusion bilateral, EKG showing sinus tachycardia heart rate around 103 Review of Systems 2 Const: Reports: fever(s) and chills Eyes: Denies: change in vision ENMT: Denies: throat pain Card: Denies: palpitations Resp: Reports: dyspnea GI: Reports: nausea : Denies: flank pain Musc: Denies: neck pain Skin/Breast: Denies: rash Neuro: Reports: headache(s) Medications/Allergies Home Medications ?Medication ?Instructions ?Recorded ?Confirmed ?Last Taken ?Type polyethylene glycol 3350 17 17 g PO DAILY #850 grams 0 01/10/24 06/08/24 Unknown Rx gram/dose oral powder (Miralax) aspirin 81 mg tablet,delayed 81 mg PO DAILY #30 tabs 1 08/09/23 Unknown Rx release atorvastatin 80 mg tablet 80 mg PO DAILY #30 tabs 05/30 Unknown Rx clopidogrel 75 mg tablet 75 mg PO DAILY #30 tabs 05/30 Unknown Rx metoprolol succinate 25 mg capsule 12.5 mg (1/2 x 25 m g) PO DAILY #15 06/08/24 Unknown Rx sprinkle, ext. release 24 hr ea nitroglycerin 0.4 mg sublingual 0.4 mg sublingual Q5M PRN chest 06/08/24 Unknown Rx tablet pain #30 tabs Allergies Allergy/AdvReac Type Severity Reaction Status Date / Time No Known Allergies Allergy Verified 07/05/23 09:47 PFSH Acute 2 PFSH: Medical History Acute non-ST elevation myocardial infarction (NSTEMI) Tobacco abuse Chest pain Alcohol abuse No pertinent past medical history Surgical History No history of previous surgery No pertinent past surgical history Social History Smoking and tobacco/nicotine status: current every day tobacco/nicotine user Alcohol intake: current Alcohol intake frequency: holidays/special occasions only Vitals/I&O/Wt Last Vital Signs Temp 98.5 F 08/05/24 19:30 Pulse 102 H 08/05/24 20:25 Resp 26 H 08/05/24 20:25 BP 125/88 08/05/24 19:30 Pulse Ox 93 08/05/24 20:25 O2 Del Method Nasal Cannula 08/05/24 20:25 O2 Flow Rate 5 08/05/24 20:25 Weight last 48 hrs Weight 68.039 kg Physical Exam 2 Narrative: Clinically dehydrated Rhonchi with wheezing Crackles GCS 15 Nonfocal neuroexam Lower extremity no edema Abdomen soft S1, S2 tachycardia Awake and alert Productive cough Unkept appearance No active sign of focal deficit Data 08/05/24 19:18 08/05/24 19:18 A&P Assessment and plan (1) Influenza A: (2) Acute respiratory failure with hypoxia: (3) Dehydration: (4) Hyponatremia: Plan Acute hypoxia Influenza A positive Likely underlying undiagnosed COPD Active smoker Clinical looks dehydrated High BNP Requested echo Conservative management DuoNeb treatment along steroids Hyponatremia related to hypovolemia Dehydration clinically High BNP noted Continue IV fluids at 11 AM in the morning Check sodium level Sinus tachycardia: Clinically dehydrated start IV fluids, check D-dimer Patient is homeless, currently living in a truck Heparin as DVT prophylaxis Cardiac diet History of coronary disease continue aspirin and statin PDMP PDMP Reviewed: Not Reviewed Attestations 2 Medical Necessity Statement*: More than 2 midnights anticipated for hypoxia, hyponatremia Diagnoses Influenza A J10.1 Acute respiratory failure with hypoxia J96.01 Dehydration E86.0 Hyponatremia E87.1
[2024-08-05 21:49] LABS: Procalcitonin 0.06 ng/mL (0-0.5)
[2024-08-05 22:13] LABS: D Dimer 4.03 ug/mLFEU (0-0.59)
--- NOTE | 2024-08-05 23:48 | PC.NURSE ---
ASSUMED CARE OF PT AT 2100
[2024-08-06] VITALS (8 sets, daily range): BP systolic 115–151; BP diastolic 69–81; PULSE 83–100; RESP 14–20; TEMP 36.5–36.8; O2SAT 91–95
[2024-08-06] MEDS: sodium chloride 0.9% 1,000 ML 75 ML IV (00:24)
[2024-08-06] MEDS: heparin 5,000 unit/mL INJ 1 mL 5000 UNIT SUBCUT ×3 (00:24→20:51)
[2024-08-06] MEDS: benzonatate 100 mg Capsule 200 MG PO (00:25)
[2024-08-06] MEDS: ipratropium-albuterol 3 mL Neb INHALATION ×3 (01:49→15:23)
[2024-08-06 02:24] LABS: ABG PCO2 33.5 mmHg (35-45); ABG PH Result 7.49 (7.35-7.45); Base Excess ABG 2.7 mmol/L (-2.0-2.0); Blood Gas Allen Test Pos; Blood Gas Operator Identificat jlb; Blood Gas Sample Site Radial, right; Blood Gas Sample Type Arterial; Carboxyhemoglobin 1.6 %THgb (0.4-20.1); HCO3 ABG 25.6 mmol/L (22-26); HGB O2 Sat 91.6 % (95-100); Oxygen Device NC; PO2 ABG 64.5 mmHg (80.0-100.0); Total Hemoglobin 13.4 g/dL (14-18)
[2024-08-06 02:49] LABS: Bilirubin Urine Negative (Negative); Blood Urine Negative (Negative); Glucose Urine UA Negative (Normal); Ketones Urine 2+ (Negative); Leukocyte Esterase Urine Negative (Negative); Nitrate Urine Negative (Negative); Protein Urine 1+ (Negative); Specific Gravity, Urine 1.018 (1.005-1.030); Urine Appearance Clear (CLEAR); pH Urine 6.5 (5-7)
[2024-08-06 02:54] LABS: Add Urine Microscopic? YES; Bacteria Urine None Seen /hpf; Hyaline Casts Urine 1.21 /lpf; Squamous Epithelial Cell Urine 0-5 /hpf (0-5); WBC Urine 0-5 /hpf (0-5)
[2024-08-06 03:00] LABS: Urine Color Orange (Yellow)
[2024-08-06 05:48] LABS: Basophils % 0.9 %; Hematocrit 36.5 % (37-53); Lymphocytes # 0.2 10^3/uL (0.8-4.8); Lymphocytes % 6.1 %; Mean Corpuscular HGB Conc 35.1 g/dL (30-55); Mean Corpuscular Hemoglobin 35.4 pg (27-33); Mean Corpuscular Volume 100.8 fl (82-101); Mean Platelet Volume 12.8 fL (7.4-10.4); Monocytes # 0.5 10^3/uL (0.2-0.9); Monocytes % 13.9 %; Neutrophils # 2.73 10^3/uL (1.8-7.7); Neutrophils % 78.8 %; Nucleated Red Blood Cells % 0 %; Platelet Count 134 10^3/cmm (157-399); Red Blood Count 3.62 10^6/uL (3.85-5.65); Red Cell Distribution Width 14.1 % (12.1-15.1); White Blood Count 3.46 10^3/uL (3.29-11.43)
[2024-08-06 06:13] LABS: Blood Urea Nitrogen 8 mg/dL (6-20); C Reactive Protein 330.4 mg/L (0.0-4.9); Calcium 8.8 mg/dL (8.5-10.5); Carbon Dioxide 26 mmol/L (22-29); Chloride 89 mmol/L (98-107); Creatinine Clr Calc Pharmacy 182.5514; Glomerular Filtration Rate 220.9 mL/min (90-130); Glucose 178 mg/dL (65-115); Magnesium 1.9 mg/dL (1.7-2.3); Osmolality Calculated 271 mOsm/kg (285-295); Sodium 129 mmol/L (136-145)
[2024-08-06 06:14] LABS: Anion Gap 17.7 (5-19); Potassium 3.7 mmol/L (3.5-5.1)
[2024-08-06] MEDS: methylPREDNISolone sod succ 40 mg/mL INJ IVP ×2 (06:23→18:35)
--- NOTE | 2024-08-06 08:24 | PC.PHAR ---
Pt was seen in ER 06/08/[address] Perez wrote for 6 medications that were never picked up. Pt was uninsured. They are as follows: Aspirin 81mg daily, Atorvastatin 80mg Daily, Clopidogrel 75mg daily, Metoprolol Succinate 25mg ER 37.5mg daily, Nitro 0.4mg SL. q5 minutes as needed, and Miralax powder once daily. Pt lives in his truck and now has [place] Medicaid insurance.
[2024-08-06] MEDS: metoprolol succinate ER (24 HR) 25 mg Tablet 12.5 MG PO (09:10)
[2024-08-06] MEDS: clopidogrel 75 mg Tablet PO (09:10)
[2024-08-06] MEDS: aspirin 81 mg EC Tablet PO (09:10)
[2024-08-06] MEDS: atorvastatin 40 mg Tablet PO (09:10)
--- NOTE | 2024-08-06 17:40 | P.PN_ITS ---
Subjective 2 Subjective: overnight labs and H&P improved, no new complaints today Medications: Reviewed: Yes Vitals/I&O/Wt Last Vital Signs Temp 98.0 F 08/06/24 16:00 Pulse 83 08/06/24 16:00 Resp 14 08/06/24 16:00 BP 115/74 08/06/24 16:00 Pulse Ox 94 08/06/24 16:00 O2 Del Method Room Air 08/06/24 16:00 O2 Flow Rate 5 08/06/24 15:24 08/06/24 08/06/24 08/06/24 06:59 14:59 22:59 Intake Total 0 / 0 1480 / 1480 Output Total 275 / 275 Balance -275 / -275 1480 / 1480 Weight last 48 hrs Weight 68.039 kg Weight 68.039 kg Weight 68.039 kg Physical Exam 2 Narrative: General: No acute distress, AO x3 HEENT: PERRLA, pupils bilaterally equal and reactive, pallors not present Chest: Normal vesicular breath sounds, no added sounds, equal good air entry bilaterally CVS: S1-S2 regular, no murmurs, no tachycardia, no gallops, no rubs Abdomen: Soft, nontender, no organomegaly, bowel sounds present Neuro: No focal deficits, no facial deformity, AO x3, power 5/5 in all limbs Data 08/06/24 05:09 08/06/24 05:09 A&P Assessment and plan (1) Influenza A: (2) Dehydration: (3) Acute respiratory failure with hypoxia: Plan (1) Influenza A: (2) Acute respiratory failure with hypoxia: (3) Dehydration: (4) Hyponatremia: Plan Acute hypoxia related to Influenza A Likely underlying undiagnosed COPD Clinical looks dehydrated High BNP Requested echo, currently pending Conservative management DuoNeb treatment along steroids to continue Hyponatremia related to hypovolemia Dehydration clinically High BNP noted d/c IVF Elevated D Dimer - check CTA chest Sinus tachycardia: Clinically dehydrated start IV fluids, check D-dimer Patient is homeless, currently living in a truck Heparin as DVT prophylaxis Cardiac diet History of coronary disease continue aspirin and statin PDMP PDMP Reviewed: Not Reviewed Attestations 2 Medical Necessity Statement*: CTA chest today Coding Level of Care Code Acute Code for Chg Fwd Diagnoses Influenza A J10.1 Dehydration E86.0 Acute respiratory failure with hypoxia J96.01
--- NOTE | 2024-08-06 17:45 | CTR_ITS ---
PROCEDURE INFORMATION: Exam: CTA Chest With Contrast Exam date and time: 08/07/2024 3:47 AM Age: 58 years old Clinical indication: Abnormal findings; Abnormal diagnostic tests; Elevated d-dimer; Cough and shortness of breath; Cough with SOB and hypoxia. Dimer 4.03. ; Additional info: Assess for pe TECHNIQUE: Imaging protocol: Computed tomographic angiography of the chest with contrast. Exam focused on the arteries. 3D rendering (Not supervised by radiologist): MIP and/or 3D reconstructed images were created by the technologist. Radiation optimization: All CT scans at this facility use at least one of these dose optimization techniques: automated exposure control; mA and/or kV adjustment per patient size (includes targeted exams where dose is matched to clinical indication); or iterative reconstruction. Contrast material: OMNI 350; Contrast volume: 63 ml; Contrast route: INTRAVENOUS (IV); COMPARISON: CR (CHEST, ) 08/05/2024 7:47 PM RADIATION DOSE METRICS: Total DLP (mGy-cm): 260.81 FINDINGS: Pulmonary arteries: No pulmonary embolism. Aorta: Unremarkable. No aortic aneurysm. No aortic dissection. Lungs: Bibasilar dependent infiltrates. Scattered small airways inflammatory centrilobular nodules throughout both lungs more prominent along bases with peribronchial thickening suggesting chronic small airways inflammatory process, possibly from aspiration. Pleural spaces: Unremarkable. No pneumothorax. No pleural effusion. Heart: Unremarkable. No cardiomegaly. No pericardial effusion. Coronary arteries: There is atherosclerotic calcification coronary arteries. Lymph nodes: Unremarkable. No enlarged lymph nodes. Liver: Moderate hepatic steatosis noted. Bones/joints: Unremarkable. No acute fracture. Soft tissues: Unremarkable. CT/CT angio chest PE protcl [id number] IMPRESSION: 1. No pulmonary embolism. 2. Bibasilar dependent infiltrates. 3. Scattered small airways inflammatory centrilobular nodules throughout both lungs more prominent along bases with peribronchial thickening suggesting chronic small airways inflammatory process, possibly from aspiration.
--- NOTE | 2024-08-06 21:08 | USCV_ITS ---
Ayaz Llanes Age: 58 Gender: M : 1965 Exam Date: 08/06/2024 07:42 Ordering Phys: Jairo Loyola MD Technologist: Alejandro Fiore [place] [facility] [place]: chf BP: 151 / 69 HR: 93 Rhythm: Sinus Technical Quality: Adequate MEASUREMENTS (Male / Female) Normal Values 2D ECHO LV Diastolic Diameter PLAX 5.4 cm 4.2 - 5.9 / 3.9 - 5.3 cm IVS Diastolic Thickness 1.1 cm 0.6 - 1.0 / 0.6 - 0.9 cm IVS Systolic Thickness 1.1 cm LVPW Diastolic Thickness 1.4 cm 0.6 - 1.0 / 0.6 - 0.9 cm LVPW Systolic Thickness 1.5 cm LVOT Diameter 2.0 cm LV Ejection Fraction 2D Teich 47.8 % LV Ejection Fraction MOD 4C 48.4 % LV Ejection Fraction MOD 2C 51.8 % LV Ejection Fraction 2C AL 52.2 % LA Diameter 3.1 cm RA Systolic Volume 4C AL 39.4 ml RA Systolic Volume 4C MOD 41.3 ml LA Sys Volume AL 45.8 cm cubed LA Sys Volume Index AL 25.8 cm cubed/m squared Aorta at Sinotubular Diameter 2.7 cm IVC Diameter 1.2 cm M-MODE LA Ao Ratio MM 1.2 AV Cusp Separation MM 1.2 cm DOPPLER AV Peak Velocity 123.0 cm/s LVOT Peak Velocity 103.0 cm/s AV Area Cont Eq vti 2.5 cm squared AV Area Cont Eq pk 2.7 cm squared MV Peak Velocity 98.0 cm/s MV Area PHT 4.0 cm squared Mitral E to A Ratio 0.8 TV Peak Velocity 141.0 cm/s TR Peak Velocity 154.0 cm/s TR Peak Gradient 9.5 mmHg TR Mean Velocity 108.0 cm/s TR Mean Gradient 5.3 mmHg TR Velocity Time Integral 37.2 cm PV Peak Velocity 82.0 cm/s RV Ejection Time 0.3 s FINDINGS Left Ventricle Normal left ventricular size, systolic function and wall thickness, with no regional wall motion abnormalities. Left ventricular ejection fraction is estimated at 60 %. Grade I/IV diastolic dysfunction (abnormal relaxation filling pattern), normal to mildly elevated filling pressures. Right Ventricle The right ventricle is normal in size and function. Right Atrium The right atrium is normal in size. Left Atrium The left atrium is normal in size. Mitral Valve Thickened mitral valve. No mitral valve stenosis. Trace mitral valve regurgitation. Aortic Valve Structurally normal aortic valve without significant sclerosis or stenosis. There is no aortic regurgitation. Tricuspid Valve Structurally normal tricuspid valve without significant stenosis or regurgitation. Pulmonary artery systolic pressure is normal. Pulmonic Valve Structurally normal pulmonic valve without significant stenosis. There is no pulmonic regurgitation. Pericardium Normal pericardium without effusion. Aorta Normal ascending aorta dimension. IVC The inferior vena cava appears normal. CONCLUSIONS Normal left ventricular size, systolic function and wall thickness, with no regional wall motion abnormalities. Left ventricular ejection fraction is estimated at 60 %. Grade I/IV diastolic dysfunction (abnormal relaxation filling pattern), normal to mildly elevated filling pressures. There is no pericardial effusion. No significant valve abnormalities. Right atrial pressure is around 5 mm of mercury. Jairo Pena MD (Electronically Signed) Final Date: 07 August 2024 20:01 S
[2024-08-07] VITALS (14 sets, daily range): BP systolic 123–148; BP diastolic 78–94; PULSE 76–97; RESP 16–22; TEMP 36.7–37.3; O2SAT 86–96
[2024-08-07] MEDS: ipratropium-albuterol 3 mL Neb INHALATION ×4 (02:10→20:29)
[2024-08-07] MEDS: iohexol 350 mg/mL 500 mL Btl (per mL) IV (03:54)
[2024-08-07] MEDS: methylPREDNISolone sod succ 40 mg/mL INJ IVP ×2 (06:20→18:04)
[2024-08-07] MEDS: atorvastatin 40 mg Tablet PO (09:53)
[2024-08-07] MEDS: metoprolol succinate ER (24 HR) 25 mg Tablet 12.5 MG PO (09:53)
[2024-08-07] MEDS: heparin 5,000 unit/mL INJ 1 mL 5000 UNIT SUBCUT ×2 (09:53→21:21)
[2024-08-07] MEDS: clopidogrel 75 mg Tablet PO (09:53)
[2024-08-07] MEDS: aspirin 81 mg EC Tablet PO (09:53)
[2024-08-07] MEDS: sennosides-docusate Tablet 1 TAB PO (09:53)
--- NOTE | 2024-08-07 17:08 | PM.PN ---
Subjective Subjective: Patient states he continues to feel short of breath. Noted to have diffuse bilateral wheezing. CTA of the chest performed yesterday was negative for any PE, findings are suggestive of bronchitis. Medications: Reviewed: Yes Vitals/I&O/Wt Last Vital Signs Temp 98.9 F 08/07/24 15:52 Pulse 97 08/07/24 15:52 Resp 18 08/07/24 13:53 BP 123/78 08/07/24 15:52 Pulse Ox 90 08/07/24 15:52 O2 Del Method Nasal Cannula 08/07/24 15:52 O2 Flow Rate 4 08/07/24 15:52 08/07/24 08/07/24 08/07/24 06:59 14:59 22:59 Intake Total 480 / 480 Output Total 500 / 500 400 / 400 Balance -500 / 1220 80 / 80 Weight last 48 hrs Weight 63.095 kg Weight 68.039 kg Weight 68.039 kg Weight 68.039 kg Physical Exam Narrative: General: No acute distress, AO x3 HEENT: PERRLA, pupils bilaterally equal and reactive, pallors not present Chest: Diffuse wheezing to auscultation bilaterally CVS: S1-S2 regular, no murmurs, no tachycardia, no gallops, no rubs Abdomen: Soft, nontender, no organomegaly, bowel sounds present Neuro: No focal deficits, no facial deformity, AO x3, power 5/5 in all limbs Data 08/06/24 05:09 08/06/24 05:09 Other Labs: Radiology Impressions Chest X-Ray 08/05/24 19:36 IMPRESSION: Mild bilateral lower lung opacities. Nonspecific finding. Possible subsegmental atelectasis, infection or aspiration. Chest CTA 08/06/24 17:45 IMPRESSION: 1. No pulmonary embolism. 2. Bibasilar dependent infiltrates. 3. Scattered small airways inflammatory centrilobular nodules throughout both lungs more prominent along bases with peribronchial thickening suggesting chronic small airways inflammatory process, possibly from aspiration. Laboratory Results WBC 3.46 10^3/uL (3.29-11.43) 08/06/24 05:09 RBC 3.62 10^6/uL (3.85-5.65) L 08/06/24 05:09 Hgb 12.80 g/dL (11.27-16.99) 08/06/24 05:09 Hct 36.5 % (37-53) L 08/06/24 05:09 MCV 100.8 fl (82-101) 08/06/24 05:09 MCH 35.4 pg (27-33) H 08/06/24 05:09 MCHC 35.1 g/dL (30-55) 08/06/24 05:09 RDW 14.1 % (12.1-15.1) 08/06/24 05:09 Plt Count 134 10^3/cmm (157-399) L 08/06/24 05:09 MPV 12.8 fL (7.4-10.4) H 08/06/24 05:09 Neut % (Auto) 78.8 % 08/06/24 05:09 Lymph % (Auto) 6.1 % 08/06/24 05:09 [place] % (Auto) 13.9 % 08/06/24 05:09 Eos % (Auto) 0.0 % 08/06/24 05:09 Baso % (Auto) 0.9 % 08/06/24 05:09 Neut # (Auto) 2.73 10^3/uL (1.8-7.7) 08/06/24 05:09 Lymph # (Auto) 0.2 10^3/uL (0.8-4.8) L 08/06/24 05:09 [place] # (Auto) 0.5 10^3/uL (0.2-0.9) 08/06/24 05:09 Eos # (Auto) 0.0 10^3/uL (0.0-0.8) 08/06/24 05:09 Baso # (Auto) 0.0 10^3/uL (0.0-0.1) 08/06/24 05:09 Nucleated RBC % (auto) 0 % 08/06/24 05:09 Total Counted 100 (0-100) 08/05/24 19:18 Atypical Lymphs % Not Reportable 08/05/24 19:18 Absolute Neutrophils 2.8 10^3/cmm (1.4-6.5) 08/05/24 19:18 Segmented Neutrophils 41 % 08/05/24 19:18 Band Neutrophils 16.0 % 08/05/24 19:18 Lymphocytes (Manual) 26 % 08/05/24 19:18 Monocytes (Manual) 14.0 % 08/05/24 19:18 Absolute Monocytes 0.7 10^3/cmm (0.1-0.6) H 08/05/24 19:18 Eosinophils (Manual) 0 % 08/05/24 19:18 Absolute Eosinophils 0.0 10^3/cmm (0.0-0.7) 08/05/24 19:18 Basophils (Manual) 0.0 % 08/05/24 19:18 Absolute Basophils 0.0 10^3/cmm (0.0-0.2) 08/05/24 19:18 Metamyelocytes 3.0 % 08/05/24 19:18 Nucleated RBCs # 0.0 /100WBC 08/06/24 05:09 Platelet Estimate Decreased (Normal) 08/05/24 19:18 D-Dimer 4.03 ug/mLFEU (0-0.59) H 08/05/24 19:18 Specimen Type Arterial 08/05/24 22:19 Sample Site Radial, right 08/05/24 22:19 ABG pH 7.49 (7.35-7.45) H 08/05/24 22:19 ABG pCO2 33.5 mmHg (35-45) L 08/05/24 22:19 ABG pO2 64.5 mmHg (80.0-100.0) L 08/05/24 22:19 ABG HCO3 25.6 mmol/L (22-26) 08/05/24 22:19 ABG Base Excess 2.7 mmol/L (-2.0-2.0) H 08/05/24 22:19 David Test Pos 08/05/24 22:19 Hematocrit 41.0 % (42-52) L 08/05/24 22:19 Hgb O2 Saturation 91.6 % (95-100) L 08/05/24 22:19 Carboxyhemoglobin 1.6 %THgb (0.4-20.1) 08/05/24 22:19 Methemoglobin 1.0 % (0.4-1.5) 08/05/24 22:19 Total Hemoglobin 13.4 g/dL (14-18) L 08/05/24 22:19 O2 Delivery Device Nc 08/05/24 22:19 O2 Liters/Min 5.0 % 08/05/24 22:19 Cyber Incident Analyst ID [email or web address] 08/05/24 22:19 Sodium 129 mmol/L (136-145) L 08/06/24 05:09 Potassium 3.7 mmol/L (3.5-5.1) 08/06/24 05:09 Chloride 89 mmol/L (98-107) L 08/06/24 05:09 Carbon Dioxide 26 mmol/L (22-29) 08/06/24 05:09 Anion Gap 17.7 (5-19) 08/06/24 05:09 BUN 8 mg/dL (6-20) 08/06/24 05:09 Creatinine 0.4 mg/dL (0.7-1.2) L 08/06/24 05:09 GFR Calculation 220.9 mL/min (90-130) H 08/06/24 05:09 Glucose 178 mg/dL (65-115) H 08/06/24 05:09 Calculated Osmolality 271 mOsm/kg (285-295) L 08/06/24 05:09 Calcium 8.8 mg/dL (8.5-10.5) 08/06/24 05:09 Magnesium 1.9 mg/dL (1.7-2.3) 08/06/24 05:09 Total Bilirubin 1.0 mg/dL (0.15-1.2) 08/05/24 19:18 AST 61 U/L (0-40) H 08/05/24 19:18 ALT 47 U/L (0-41) H 08/05/24 19:18 Alkaline Phosphatase 116 U/L (40-130) 08/05/24 19:18 C-Reactive Protein 330.4 mg/L (0.0-4.9) H 08/06/24 05:09 NT-Pro-B Natriuret Pep 1536 pg/mL (0-125) H 08/05/24 19:18 Total Protein 7.7 g/dL (6.6-8.7) 08/05/24 19:18 Albumin 3.8 g/dL (3.5-5.2) 08/05/24 19:18 Globulin 3.9 g/dL (1.3-4.6) 08/05/24 19:18 Procalcitonin 0.06 ng/mL (0-0.5) 08/05/24 21:15 Urine Color [place] (Yellow) A 08/06/24 02:40 Urine Appearance Clear (CLEAR) 08/06/24 02:40 Urine pH 6.5 (5-7) 08/06/24 02:40 Ur Specific [place] 1.018 (1.005-1.030) 08/06/24 02:40 Urine Protein 1+ (Negative) A 08/06/24 02:40 Urine Glucose (UA) Negative (Normal) 08/06/24 02:40 Urine Ketones 2+ (Negative) H 08/06/24 02:40 Urine Blood Negative (Negative) 08/06/24 02:40 Urine Nitrate Negative (Negative) 08/06/24 02:40 Urine Bilirubin Negative (Negative) 08/06/24 02:40 Urine Urobilinogen 1.0 mg/dL (Negative) 08/06/24 02:40 Ur Leukocyte Esterase Negative (Negative) 08/06/24 02:40 Urine RBC 3-5 /hpf (0-2) 08/06/24 02:40 Urine WBC 0-5 /hpf (0-5) 08/06/24 02:40 Ur Squamous Epith Cells 0-5 /hpf (0-5) 08/06/24 02:40 Amorphous Sediment Not Reportable 08/06/24 02:40 Urine Bacteria None seen /hpf (NONE) 08/06/24 02:40 Hyaline Casts 1.21 /lpf 08/06/24 02:40 Coronavirus (PCR) Negative (Negative) 08/05/24 19:45 Influenza A (PCR) Positive (Negative) 08/05/24 19:45 Influenza Type B (PCR) Negative (Negative) 08/05/24 19:45 RSV (PCR) Negative (Negative) 08/05/24 19:45 A&P Assessment and plan (1) Influenza A: (2) Dehydration: (3) Acute respiratory failure with hypoxia: Plan (1) Influenza A: (2) Acute respiratory failure with hypoxia: (3) Dehydration: (4) Hyponatremia: Plan Acute hypoxia related to Influenza A Likely underlying undiagnosed COPD Clinical looks dehydrated High BNP Requested echo, currently pending Conservative management DuoNeb treatment along steroids to continue Hyponatremia related to hypovolemia Dehydration clinically High BNP noted d/c IVF Elevated D Dimer - check CTA chest Sinus tachycardia: Clinically dehydrated start IV fluids, check D-dimer Patient is homeless, currently living in a truck Heparin as DVT prophylaxis Cardiac diet History of coronary disease continue aspirin and statin August 07, 2024 58-year-old male, currently homeless, living out of his truck, presenting to the hospital with complaints of worsening dyspnea on exertion for 3 days. He had a new oxygen requirement of 4 L/min. He has been expectorating greenish colored sputum. Additionally had subjective fevers at home. Tested positive for influenza. Diffuse wheezing on auscultation bilaterally concerning concerning for acute bronchitis. CTA performed due to elevated D-dimer, negative for PE. 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 Cannot exclude possibility of bacterial infection on top of acute viral process. Start ceftriaxone 1 g IV every 24 hours, azithromycin 500 mg p.o. daily. Continue Tamiflu 75 mg p.o. twice daily. Add budesonide inhalation. Continue IV steroids. PDMP PDMP Reviewed: Not Reviewed Attestations Medical Necessity Statement*: Acute bronchitis precipitated by viral infection, possibility of bacterial infection not excluded, starting antibiotics, IV steroids Coding Level of Care Code Acute Code for [facility] Diagnoses Influenza A J10.1 Dehydration E86.0 Acute respiratory failure with hypoxia J96.01
[2024-08-07] MEDS: cefTRIAXone 1,000 mg SDV 1000 MG IVP (18:04)
[2024-08-07] MEDS: oseltamivir phosphate 75 mg Capsule PO (18:04)
[2024-08-07] MEDS: azithromycin 250 mg Tablet 500 MG PO (18:04)
[2024-08-07] MEDS: budesonide 0.5 mg/2 mL Neb INHALATION (20:29)
[2024-08-08] VITALS (15 sets, daily range): BP systolic 117–150; BP diastolic 77–88; PULSE 69–81; RESP 16–18; TEMP 36.6–37; O2SAT 86–96
[2024-08-08] MEDS: ipratropium-albuterol 3 mL Neb INHALATION ×4 (02:00→22:19)
[2024-08-08 05:29] LABS: Basophils # 0.1 10^3/uL (0.0-0.1); Basophils % 0.6 %; Lymphocytes # 0.6 10^3/uL (0.8-4.8); Lymphocytes % 6.7 %; Mean Corpuscular HGB Conc 33.9 g/dL (30-55); Mean Corpuscular Hemoglobin 35.8 pg (27-33); Mean Corpuscular Volume 105.6 fl (82-101); Mean Platelet Volume 12.6 fL (7.4-10.4); Monocytes % 11.6 %; Neutrophils # 7.18 10^3/uL (1.8-7.7); Neutrophils % 80.7 %; Nucleated Red Blood Cells % 0 %; Platelet Count 224 10^3/cmm (157-399); Red Blood Count 3.41 10^6/uL (3.85-5.65)
[2024-08-08 05:51] LABS: Alanine Aminotransferase 69 U/L (0-41); Albumin Level 2.9 g/dL (3.5-5.2); Alkaline Phosphatase 70 U/L (40-130); Aspartate Amino Transferase 99 U/L (0-40); Blood Urea Nitrogen 9 mg/dL (6-20); Calcium 8.5 mg/dL (8.5-10.5); Carbon Dioxide 27 mmol/L (22-29); Chloride 97 mmol/L (98-107); Creatinine Clr Calc Pharmacy 141.5366; Glomerular Filtration Rate 170.8 mL/min (90-130); Glucose 187 mg/dL (65-115); Osmolality Calculated 284 mOsm/kg (285-295); Sodium 135 mmol/L (136-145); Total Bilirubin 0.2 mg/dL (0.15-1.2); Total Protein 5.9 g/dL (6.6-8.7)
[2024-08-08 05:59] LABS: Slide Review Slide Review Perform
[2024-08-08] MEDS: methylPREDNISolone sod succ 40 mg/mL INJ IVP ×2 (06:26→18:23)
[2024-08-08] MEDS: budesonide 0.5 mg/2 mL Neb INHALATION ×2 (08:37→22:19)
[2024-08-08] MEDS: oseltamivir phosphate 75 mg Capsule PO ×2 (09:58→18:24)
[2024-08-08] MEDS: azithromycin 250 mg Tablet 500 MG PO (09:58)
[2024-08-08] MEDS: metoprolol succinate ER (24 HR) 25 mg Tablet 12.5 MG PO (09:58)
[2024-08-08] MEDS: clopidogrel 75 mg Tablet PO (09:58)
[2024-08-08] MEDS: aspirin 81 mg EC Tablet PO (09:58)
[2024-08-08] MEDS: heparin 5,000 unit/mL INJ 1 mL 5000 UNIT SUBCUT ×2 (09:58→21:02)
[2024-08-08] MEDS: atorvastatin 40 mg Tablet PO (09:58)
--- NOTE | 2024-08-08 17:55 | P.PN_ITS ---
Subjective 2 Subjective: Clinically starting to feel better, however still has bouts of cough. Oxygen saturation down to 86% on ambulation. Medications: Reviewed: Yes Vitals/I&O/Wt Last Vital Signs Temp 98.1 F 08/08/24 16:00 Pulse 69 08/08/24 16:00 Resp 16 08/08/24 16:00 BP 145/83 08/08/24 16:00 Pulse Ox 88 L 08/08/24 16:18 O2 Del Method Nasal Cannula 08/08/24 16:00 O2 Flow Rate 3 08/08/24 16:18 08/08/24 08/08/24 08/08/24 06:59 14:59 22:59 Intake Total 480 / 480 Balance 480 / 480 Weight last 48 hrs Weight 63.095 kg Physical Exam 2 Narrative: General: No acute distress, AO x3 HEENT: PERRLA, pupils bilaterally equal and reactive, pallors not present Chest: Diffuse wheezing to auscultation bilaterally CVS: S1-S2 regular, no murmurs, no tachycardia, no gallops, no rubs Abdomen: Soft, nontender, no organomegaly, bowel sounds present Neuro: No focal deficits, no facial deformity, AO x3, power 5/5 in all limbs Data 08/08/24 04:52 08/08/24 04:52 Other Labs: Radiology Impressions Chest X-Ray 08/05/24 19:36 IMPRESSION: Mild bilateral lower lung opacities. Nonspecific finding. Possible subsegmental atelectasis, infection or aspiration. Chest CTA 08/06/24 17:45 IMPRESSION: 1. No pulmonary embolism. 2. Bibasilar dependent infiltrates. 3. Scattered small airways inflammatory centrilobular nodules throughout both lungs more prominent along bases with peribronchial thickening suggesting chronic small airways inflammatory process, possibly from aspiration. Laboratory Results WBC 3.46 10^3/uL (3.29-11.43) 08/06/24 05:09 RBC 3.62 10^6/uL (3.85-5.65) L 08/06/24 05:09 Hgb 12.80 g/dL (11.27-16.99) 08/06/24 05:09 Hct 36.5 % (37-53) L 08/06/24 05:09 MCV 100.8 fl (82-101) 08/06/24 05:09 MCH 35.4 pg (27-33) H 08/06/24 05:09 MCHC 35.1 g/dL (30-55) 08/06/24 05:09 RDW 14.1 % (12.1-15.1) 08/06/24 05:09 Plt Count 134 10^3/cmm (157-399) L 08/06/24 05:09 MPV 12.8 fL (7.4-10.4) H 08/06/24 05:09 Neut % (Auto) 78.8 % 08/06/24 05:09 Lymph % (Auto) 6.1 % 08/06/24 05:09 [place] % (Auto) 13.9 % 08/06/24 05:09 Eos % (Auto) 0.0 % 08/06/24 05:09 Baso % (Auto) 0.9 % 08/06/24 05:09 Neut # (Auto) 2.73 10^3/uL (1.8-7.7) 08/06/24 05:09 Lymph # (Auto) 0.2 10^3/uL (0.8-4.8) L 08/06/24 05:09 [place] # (Auto) 0.5 10^3/uL (0.2-0.9) 08/06/24 05:09 Eos # (Auto) 0.0 10^3/uL (0.0-0.8) 08/06/24 05:09 Baso # (Auto) 0.0 10^3/uL (0.0-0.1) 08/06/24 05:09 Nucleated RBC % (auto) 0 % 08/06/24 05:09 Total Counted 100 (0-100) 08/05/24 19:18 Atypical Lymphs % Not Reportable 08/05/24 19:18 Absolute Neutrophils 2.8 10^3/cmm (1.4-6.5) 08/05/24 19:18 Segmented Neutrophils 41 % 08/05/24 19:18 Band Neutrophils 16.0 % 08/05/24 19:18 Lymphocytes (Manual) 26 % 08/05/24 19:18 Monocytes (Manual) 14.0 % 08/05/24 19:18 Absolute Monocytes 0.7 10^3/cmm (0.1-0.6) H 08/05/24 19:18 Eosinophils (Manual) 0 % 08/05/24 19:18 Absolute Eosinophils 0.0 10^3/cmm (0.0-0.7) 08/05/24 19:18 Basophils (Manual) 0.0 % 08/05/24 19:18 Absolute Basophils 0.0 10^3/cmm (0.0-0.2) 08/05/24 19:18 Metamyelocytes 3.0 % 08/05/24 19:18 Nucleated RBCs # 0.0 /100WBC 08/06/24 05:09 Platelet Estimate Decreased (Normal) 08/05/24 19:18 D-Dimer 4.03 ug/mLFEU (0-0.59) H 08/05/24 19:18 Specimen Type Arterial 08/05/24 22:19 Sample Site Radial, right 08/05/24 22:19 ABG pH 7.49 (7.35-7.45) H 08/05/24 22:19 ABG pCO2 33.5 mmHg (35-45) L 08/05/24 22:19 ABG pO2 64.5 mmHg (80.0-100.0) L 08/05/24 22:19 ABG HCO3 25.6 mmol/L (22-26) 08/05/24 22:19 ABG Base Excess 2.7 mmol/L (-2.0-2.0) H 08/05/24 22:19 David Test Pos 08/05/24 22:19 Hematocrit 41.0 % (42-52) L 08/05/24 22:19 Hgb O2 Saturation 91.6 % (95-100) L 08/05/24 22:19 Carboxyhemoglobin 1.6 %THgb (0.4-20.1) 08/05/24 22:19 Methemoglobin 1.0 % (0.4-1.5) 08/05/24 22:19 Total Hemoglobin 13.4 g/dL (14-18) L 08/05/24 22:19 O2 Delivery Device Nc 08/05/24 22:19 O2 Liters/Min 5.0 % 08/05/24 22:19 Environmental Engineering Professor ID [email or web address] 08/05/24 22:19 Sodium 129 mmol/L (136-145) L 08/06/24 05:09 Potassium 3.7 mmol/L (3.5-5.1) 08/06/24 05:09 Chloride 89 mmol/L (98-107) L 08/06/24 05:09 Carbon Dioxide 26 mmol/L (22-29) 08/06/24 05:09 Anion Gap 17.7 (5-19) 08/06/24 05:09 BUN 8 mg/dL (6-20) 08/06/24 05:09 Creatinine 0.4 mg/dL (0.7-1.2) L 08/06/24 05:09 GFR Calculation 220.9 mL/min (90-130) H 08/06/24 05:09 Glucose 178 mg/dL (65-115) H 08/06/24 05:09 Calculated Osmolality 271 mOsm/kg (285-295) L 08/06/24 05:09 Calcium 8.8 mg/dL (8.5-10.5) 08/06/24 05:09 Magnesium 1.9 mg/dL (1.7-2.3) 08/06/24 05:09 Total Bilirubin 1.0 mg/dL (0.15-1.2) 08/05/24 19:18 AST 61 U/L (0-40) H 08/05/24 19:18 ALT 47 U/L (0-41) H 08/05/24 19:18 Alkaline Phosphatase 116 U/L (40-130) 08/05/24 19:18 C-Reactive Protein 330.4 mg/L (0.0-4.9) H 08/06/24 05:09 NT-Pro-B Natriuret Pep 1536 pg/mL (0-125) H 08/05/24 19:18 Total Protein 7.7 g/dL (6.6-8.7) 08/05/24 19:18 Albumin 3.8 g/dL (3.5-5.2) 08/05/24 19:18 Globulin 3.9 g/dL (1.3-4.6) 08/05/24 19:18 Procalcitonin 0.06 ng/mL (0-0.5) 08/05/24 21:15 Urine Color [place] (Yellow) A 08/06/24 02:40 Urine Appearance Clear (CLEAR) 08/06/24 02:40 Urine pH 6.5 (5-7) 02/07/25 02:40 Ur Specific [place] 1.018 (1.005-1.030) 08/06/24 02:40 Urine Protein 1+ (Negative) A 08/06/24 02:40 Urine Glucose (UA) Negative (Normal) 08/06/24 02:40 Urine Ketones 2+ (Negative) H 08/06/24 02:40 Urine Blood Negative (Negative) 08/06/24 02:40 Urine Nitrate Negative (Negative) 08/06/24 02:40 Urine Bilirubin Negative (Negative) 08/06/24 02:40 Urine Urobilinogen 1.0 mg/dL (Negative) 08/06/24 02:40 Ur Leukocyte Esterase Negative (Negative) 08/06/24 02:40 Urine RBC 3-5 /hpf (0-2) 08/06/24 02:40 Urine WBC 0-5 /hpf (0-5) 08/06/24 02:40 Ur Squamous Epith Cells 0-5 /hpf (0-5) 08/06/24 02:40 Amorphous Sediment Not Reportable 08/06/24 02:40 Urine Bacteria None seen /hpf (NONE) 08/06/24 02:40 Hyaline Casts 1.21 /lpf 08/06/24 02:40 Coronavirus (PCR) Negative (Negative) 08/05/24 19:45 Influenza A (PCR) Positive (Negative) 08/05/24 19:45 Influenza Type B (PCR) Negative (Negative) 08/05/24 19:45 RSV (PCR) Negative (Negative) 08/05/24 19:45 A&P Assessment and plan (1) Influenza A: (2) Dehydration: (3) Acute respiratory failure with hypoxia: Plan (1) Influenza A: (2) Acute respiratory failure with hypoxia: (3) Dehydration: (4) Hyponatremia: Plan Acute hypoxia related to Influenza A Likely underlying undiagnosed COPD Clinical looks dehydrated High BNP Requested echo, currently pending Conservative management DuoNeb treatment along steroids to continue Hyponatremia related to hypovolemia Dehydration clinically High BNP noted d/c IVF Elevated D Dimer - check CTA chest Sinus tachycardia: Clinically dehydrated start IV fluids, check D-dimer Patient is homeless, currently living in a truck Heparin as DVT prophylaxis Cardiac diet History of coronary disease continue aspirin and statin August 07, 2024 58-year-old male, currently homeless, living out of his truck, presenting to the hospital with complaints of worsening dyspnea on exertion for 3 days. He had a new oxygen requirement of 4 L/min. He has been expectorating greenish colored sputum. Additionally had subjective fevers at home. Tested positive for influenza. Diffuse wheezing on auscultation bilaterally concerning concerning for acute bronchitis. CTA performed due to elevated D-dimer, negative for PE. 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 Cannot exclude possibility of bacterial infection on top of acute viral process. Start ceftriaxone 1 g IV every 24 hours, azithromycin 500 mg p.o. daily. Continue Tamiflu 75 mg p.o. twice daily. Add budesonide inhalation. Continue IV steroids. August 08, 2024 Continues to have diffuse wheezing on bilateral chest auscultation, however improved over previously. Oxygen requirement at 3 L/min today. Desaturating to 86% with exertion.. Continue Tamiflu. Continue ceftriaxone and azithromycin. Check MRSA nasal screen. Continue steroids and supportive management with nebulization. PDMP PDMP Reviewed: Not Reviewed Attestations 2 Medical Necessity Statement*: Acute bronchitis precipitated by viral infection, possibility of bacterial infection not excluded, starting antibiotics, IV steroids Coding Level of Care Code Acute Code for [facility] Diagnoses Influenza A J10.1 Dehydration E86.0 Acute respiratory failure with hypoxia J96.01
[2024-08-08] MEDS: cefTRIAXone 1,000 mg SDV 1000 MG IVP (18:24)
[2024-08-09] VITALS (9 sets, daily range): BP systolic 127–153; BP diastolic 77–90; PULSE 64–81; RESP 15–18; TEMP 36.6–36.9; O2SAT 90–96
[2024-08-09] MEDS: ipratropium-albuterol 3 mL Neb INHALATION ×4 (03:27→20:48)
[2024-08-09 05:02] LABS: Basophils % 0.2 %; Hematocrit 34.7 % (37-53); Lymphocytes # 0.9 10^3/uL (0.8-4.8); Lymphocytes % 8.6 %; Mean Corpuscular HGB Conc 34.3 g/dL (30-55); Mean Corpuscular Hemoglobin 35.1 pg (27-33); Mean Corpuscular Volume 102.4 fl (82-101); Mean Platelet Volume 12.6 fL (7.4-10.4); Monocytes % 9.7 %; Neutrophils # 8.62 10^3/uL (1.8-7.7); Neutrophils % 80.8 %; Nucleated Red Blood Cells % 0 %; Platelet Count 218 10^3/cmm (157-399); Red Blood Count 3.39 10^6/uL (3.85-5.65); White Blood Count 10.67 10^3/uL (3.29-11.43)
[2024-08-09 05:21] LABS: Alanine Aminotransferase 94 U/L (0-41); Albumin Level 2.9 g/dL (3.5-5.2); Alkaline Phosphatase 78 U/L (40-130); Aspartate Amino Transferase 95 U/L (0-40); Blood Urea Nitrogen 10 mg/dL (6-20); Calcium 8.5 mg/dL (8.5-10.5); Carbon Dioxide 26 mmol/L (22-29); Chloride 97 mmol/L (98-107); Creatinine Clr Calc Pharmacy 175.7841; Globulin 2.9 g/dL (1.3-4.6); Glomerular Filtration Rate 220.9 mL/min (90-130); Glucose 202 mg/dL (65-115); Osmolality Calculated 281 mOsm/kg (285-295); Sodium 133 mmol/L (136-145); Total Bilirubin 0.2 mg/dL (0.15-1.2); Total Protein 5.8 g/dL (6.6-8.7)
[2024-08-09] MEDS: methylPREDNISolone sod succ 40 mg/mL INJ IVP ×2 (06:06→18:18)
[2024-08-09 06:17] LABS: Slide Review Slide Review Perform
[2024-08-09] MEDS: budesonide 0.5 mg/2 mL Neb INHALATION ×2 (08:01→20:48)
[2024-08-09] MEDS: clopidogrel 75 mg Tablet PO (09:05)
[2024-08-09] MEDS: azithromycin 250 mg Tablet 500 MG PO (09:05)
[2024-08-09] MEDS: oseltamivir phosphate 75 mg Capsule PO ×2 (09:05→18:18)
[2024-08-09] MEDS: sennosides-docusate Tablet 1 TAB PO (09:05)
[2024-08-09] MEDS: atorvastatin 40 mg Tablet PO (09:07)
[2024-08-09] MEDS: aspirin 81 mg EC Tablet PO (09:07)
[2024-08-09] MEDS: metoprolol succinate ER (24 HR) 25 mg Tablet 12.5 MG PO (09:07)
[2024-08-09] MEDS: heparin 5,000 unit/mL INJ 1 mL 5000 UNIT SUBCUT ×2 (09:08→20:35)
--- NOTE | 2024-08-09 12:20 | P.PN_ITS ---
Subjective 2 Subjective: Seen this morning. Patient resting comfortably in bed. He states he was on room air earlier and now just put on his nasal cannula which is 2 L. He states I believe I could go without it. He is aware that he has been denied by to nursing homes at this time. He states he might have to go and live in his truck. 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 Still complains of shortness of breath. Is having rhonchi bilaterally. States is better than admission however still does not feel very good. Vitals/I&O/Wt Last Vital Signs Temp 98.2 F 08/09/24 08:00 Pulse 78 08/09/24 08:00 Resp 16 08/09/24 08:00 BP 149/87 08/09/24 08:00 Pulse Ox 90 08/09/24 08:00 O2 Del Method Nasal Cannula 08/09/24 08:00 O2 Flow Rate 2 08/09/24 08:00 08/08/24 08/09/24 08/09/24 22:59 06:59 14:59 Intake Total 1400 / 1880 240 / 2120 118 / 118 Balance 1400 / 1880 240 / 2120 118 / 118 Weight last 48 hrs Weight 62.097 kg Physical Exam 2 Narrative: General: No acute distress, AO x3 HEENT: PERRLA, pupils bilaterally equal and reactive, pallors not present Chest: Diffuse wheezing to auscultation bilaterally, rhonchi present right base. CVS: S1-S2 regular, no murmurs, no tachycardia, no gallops, no rubs Abdomen: Soft, nontender, no organomegaly, bowel sounds present Neuro: No focal deficits, no facial deformity, AO x3, power 5/5 in all limbs Data 08/09/24 04:41 08/09/24 04:41 Micro: Microbiology 08/09/24 08:10 Gram Stain - Final Sputum - Expectorated Sputum A&P Assessment and plan (1) Influenza A: (2) Dehydration: (3) Acute respiratory failure with hypoxia: Plan (1) Influenza A: (2) Acute respiratory failure with hypoxia: (3) Dehydration: (4) Hyponatremia: Plan Acute hypoxia related to Influenza A Likely underlying undiagnosed COPD Clinical looks dehydrated High BNP Requested echo, currently pending Conservative management DuoNeb treatment along steroids to continue Hyponatremia related to hypovolemia Dehydration clinically High BNP noted d/c IVF Elevated D Dimer - check CTA chest Sinus tachycardia: Clinically dehydrated start IV fluids, check D-dimer Patient is homeless, currently living in a truck Heparin as DVT prophylaxis Cardiac diet History of coronary disease continue aspirin and statin August 07, 2024 58-year-old male, currently homeless, living out of his truck, presenting to the hospital with complaints of worsening dyspnea on exertion for 3 days. He had a new oxygen requirement of 4 L/min. He has been expectorating greenish colored sputum. Additionally had subjective fevers at home. Tested positive for influenza. Diffuse wheezing on auscultation bilaterally concerning concerning for acute bronchitis. CTA performed due to elevated D-dimer, negative for PE. Noted to have scattered small airways inflammatory changes, most likely circulation representative of acute bronchitis given clinical history and course. Cannot exclude possibility of bacterial infection on top of acute viral process. Start ceftriaxone 1 g IV every 24 hours, azithromycin 500 mg p.o. daily. Continue Tamiflu 75 mg p.o. twice daily. Add budesonide inhalation. Continue IV steroids. August 08, 2024 Continues to have diffuse wheezing on bilateral chest auscultation, however improved over previously. Oxygen requirement at 3 L/min today. Desaturating to 86% with exertion.. Continue Tamiflu. Continue ceftriaxone and azithromycin. Check MRSA nasal screen. Continue steroids and supportive management with nebulization. 08/09/2024 Patient continues to have bilateral rhonchi more so on the right compared to left. He still has wheezing. Saturating 90% on 2 L nasal cannula. Continue ceftriaxone azithromycin. MRSA nares pending. Continue steroids supportive treatment. Pending placement to nursing facility. 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 PDMP PDMP Reviewed: Not Reviewed Attestations 2 Medical Necessity Statement*: Acute bronchitis precipitated by viral infection, possibility of bacterial infection not excluded, starting antibiotics, IV steroids Diagnoses Influenza A J10.1 Dehydration E86.0 Acute respiratory failure with hypoxia J96.01
[2024-08-09] MEDS: benzonatate 100 mg Capsule 200 MG PO (14:25)
[2024-08-09] MEDS: cefTRIAXone 1,000 mg SDV 1000 MG IVP (18:19)
[2024-08-10] VITALS (11 sets, daily range): BP systolic 129–172; BP diastolic 77–95; PULSE 61–96; RESP 15–22; TEMP 36.8–37; O2SAT 87–95
[2024-08-10] MEDS: methylPREDNISolone sod succ 40 mg/mL INJ IVP (05:30)
[2024-08-10 06:47] LABS: Basophils % 0.3 %; Hematocrit 35.7 % (37-53); Lymphocytes # 1.4 10^3/uL (0.8-4.8); Lymphocytes % 13.8 %; Mean Corpuscular HGB Conc 34.5 g/dL (30-55); Mean Corpuscular Hemoglobin 34.9 pg (27-33); Mean Corpuscular Volume 101.4 fl (82-101); Mean Platelet Volume 12.4 fL (7.4-10.4); Monocytes # 1.1 10^3/uL (0.2-0.9); Monocytes % 10.1 %; Neutrophils # 7.71 10^3/uL (1.8-7.7); Nucleated Red Blood Cells % 0 %; Platelet Count 313 10^3/cmm (157-399); Red Blood Count 3.52 10^6/uL (3.85-5.65); Red Cell Distribution Width 14.1 % (12.1-15.1); White Blood Count 10.42 10^3/uL (3.29-11.43)
[2024-08-10 06:55] LABS: Anion Gap 14.3 (5-19); Blood Urea Nitrogen 8 mg/dL (6-20); Calcium 8.4 mg/dL (8.5-10.5); Carbon Dioxide 27 mmol/L (22-29); Chloride 97 mmol/L (98-107); Creatinine Clr Calc Pharmacy 175.5256; Glomerular Filtration Rate 220.9 mL/min (90-130); Glucose 146 mg/dL (65-115); Magnesium 2.3 mg/dL (1.7-2.3); Osmolality Calculated 279 mOsm/kg (285-295); Potassium 4.3 mmol/L (3.5-5.1); Sodium 134 mmol/L (136-145)
[2024-08-10 07:01] LABS: Slide Review Slide Review Perform
[2024-08-10] MEDS: clopidogrel 75 mg Tablet PO (08:33)
[2024-08-10] MEDS: aspirin 81 mg EC Tablet PO (08:33)
[2024-08-10] MEDS: oseltamivir phosphate 75 mg Capsule PO ×2 (08:34→17:10)
[2024-08-10] MEDS: heparin 5,000 unit/mL INJ 1 mL 5000 UNIT SUBCUT ×2 (08:34→20:35)
[2024-08-10] MEDS: metoprolol succinate ER (24 HR) 25 mg Tablet 12.5 MG PO (08:34)
[2024-08-10] MEDS: sennosides-docusate Tablet 1 TAB PO (08:34)
[2024-08-10] MEDS: azithromycin 250 mg Tablet 500 MG PO (08:34)
[2024-08-10] MEDS: atorvastatin 40 mg Tablet PO (08:34)
[2024-08-10] MEDS: budesonide 0.5 mg/2 mL Neb INHALATION ×2 (09:01→19:46)
[2024-08-10] MEDS: ipratropium-albuterol 3 mL Neb INHALATION ×3 (09:01→19:46)
--- NOTE | 2024-08-10 09:08 | PM.PN ---
Subjective Subjective: Patient was seen this morning. He states that today he is not feeling well and reports he may be feeling a little worse this morning. He reports feeling cold and having chills all night. He states that every time he inhales to breathe he starts coughing. He reports that this kept him up at night and he was not able to sleep well. He states coughing up sputum that is white and no longer green-yellow. He still reports shortness of breath. He states that he was able to shower but it was difficult as it made him very tired. He is able to get up to use the restroom but nothing more than this. Vitals/I&O/Wt Last Vital Signs Temp 98.2 F 08/10/24 07:27 Pulse 61 08/10/24 08:00 Resp 18 08/10/24 08:00 BP 136/77 08/10/24 07:27 Pulse Ox 94 08/10/24 08:00 O2 Del Method Room Air 08/10/24 08:00 O2 Flow Rate 2 08/10/24 08:00 08/09/24 08/10/24 08/10/24 22:59 06:59 14:59 Intake Total 210 / 446 75 / 521 360 / 360 Balance 210 / 446 75 / 521 360 / 360 Weight last 48 hrs Weight 61.87 kg Weight 62.097 kg Physical Exam Resp: AUSCULTATION: wheezes Cardio: COMMON NORMALS: regular rate, regular rhythm, S1 normal heart sound present and S2 normal heart sound present RATE: regular rate RHYTHM: regular rhythm HEART SOUNDS: S1 normal heart sound present and S2 normal heart sound present GI: COMMON NORMALS: Normal to inspection, nondistended, normoactive bowel sounds present, Soft to palpation and no bruits PALPATION: Yes Soft to palpation Data 08/10/24 05:26 08/10/24 05:26 Micro: Microbiology 08/09/24 08:10 Gram Stain - Final Sputum - Expectorated Sputum A&P Assessment and plan Plan Acute hypoxia related to Influenza A Likely underlying undiagnosed COPD Clinical looks dehydrated High BNP Requested echo, currently pending Conservative management DuoNeb treatment along steroids to continue Hyponatremia related to hypovolemia Dehydration clinically High BNP noted d/c IVF Elevated D Dimer - check CTA chest Sinus tachycardia: Clinically dehydrated start IV fluids, check D-dimer Patient is homeless, currently living in a truck Heparin as DVT prophylaxis Cardiac diet History of coronary disease continue aspirin and statin August 07, 2024 58-year-old male, currently homeless, living out of his truck, presenting to the hospital with complaints of worsening dyspnea on exertion for 3 days. He had a new oxygen requirement of 4 L/min. He has been expectorating greenish colored sputum. Additionally had subjective fevers at home. Tested positive for influenza. Diffuse wheezing on auscultation bilaterally concerning concerning for acute bronchitis. CTA performed due to elevated D-dimer, negative for PE. 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 Cannot exclude possibility of bacterial infection on top of acute viral process. Start ceftriaxone 1 g IV every 24 hours, azithromycin 500 mg p.o. daily. Continue Tamiflu 75 mg p.o. twice daily. Add budesonide inhalation. Continue IV steroids. August 08, 2024 Continues to have diffuse wheezing on bilateral chest auscultation, however improved over previously. Oxygen requirement at 3 L/min today. Desaturating to 86% with exertion.. Continue Tamiflu. Continue ceftriaxone and azithromycin. Check MRSA nasal screen. Continue steroids and supportive management with nebulization. 08/09/2024 Patient continues to have bilateral rhonchi more so on the right compared to left. He still has wheezing. Saturating 90% on 2 L nasal cannula. Continue ceftriaxone azithromycin. MRSA nares pending. Continue steroids supportive treatment. Pending placement to nursing facility. 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 PDMP PDMP Reviewed: Not Reviewed Coding Level of Care Code Acute Code for Chg Fwd
--- NOTE | 2024-08-10 11:55 | P.PN_ITS ---
Subjective 2 Subjective: Seen this morning. Patient states he had an episode of diarrhea yesterday. He feels very bad today. He states he has been having night sweats and chills. Denies having a fever. Is on 1 L nasal cannula. He states he would like another day in the hospital and will go live in his truck starting tomorrow. I asked him to produce a stool sample for me to test in the lab however he stated that the diarrhea has subsided at this point. He states that he just does not feel okay and something is wrong. He feels very nauseated this morning as well. Vitals/I&O/Wt Last Vital Signs Temp 98.2 F 08/10/24 11: Pulse 74 08/10/24 11: Resp 15 08/10/24 11: BP 129/80 08/10/24 11:25 Pulse Ox 93 08/10/24 11: O2 Del Method Nasal Cannula 08/10/24 11: O2 Flow Rate 1 08/10/24 11:25 08/09/24 08/10/24 08/10/24 22:59 06:59 14:59 Intake Total 210 / 446 75 / 521 360 / 360 Balance 210 / 446 75 / 521 360 / 360 Weight last 48 hrs Weight 61.87 kg Weight 62.097 kg Physical Exam 2 Narrative: General: No acute distress, AO x3 HEENT: PERRLA, pupils bilaterally equal and reactive, pallors not present Chest: Clear to auscultation bilaterally no wheezes no rhonchi. CVS: S1-S2 regular, no murmurs, no tachycardia, no gallops, no rubs Abdomen: Soft, nontender, no organomegaly, bowel sounds present Neuro: No focal deficits, no facial deformity, AO x3, Data 08/10/24 05:26 08/10/24 05:26 Micro: Microbiology 08/09/24 08:10 Gram Stain - Final Sputum - Expectorated Sputum A&P Assessment and plan (1) Influenza A: (2) Dehydration: (3) Acute respiratory failure with hypoxia: Plan (1) Influenza A: (2) Acute respiratory failure with hypoxia: (3) Dehydration: (4) Hyponatremia: Plan Acute hypoxia related to Influenza A Likely underlying undiagnosed COPD Clinical looks dehydrated High BNP Requested echo, currently pending Conservative management DuoNeb treatment along steroids to continue Hyponatremia related to hypovolemia Dehydration clinically High BNP noted d/c IVF Elevated D Dimer - check CTA chest Sinus tachycardia: Clinically dehydrated start IV fluids, check D-dimer Patient is homeless, currently living in a truck Heparin as DVT prophylaxis Cardiac diet History of coronary disease continue aspirin and statin August 07, 2024 58-year-old male, currently homeless, living out of his truck, presenting to the hospital with complaints of worsening dyspnea on exertion for 3 days. He had a new oxygen requirement of 4 L/min. He has been expectorating greenish colored sputum. Additionally had subjective fevers at home. Tested positive for influenza. Diffuse wheezing on auscultation bilaterally concerning concerning for acute bronchitis. CTA performed due to elevated D-dimer, negative for PE. 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 Cannot exclude possibility of bacterial infection on top of acute viral process. Start ceftriaxone 1 g IV every 24 hours, azithromycin 500 mg p.o. daily. Continue Tamiflu 75 mg p.o. twice daily. Add budesonide inhalation. Continue IV steroids. August 08, 2024 Continues to have diffuse wheezing on bilateral chest auscultation, however improved over previously. Oxygen requirement at 3 L/min today. Desaturating to 86% with exertion.. Continue Tamiflu. Continue ceftriaxone and azithromycin. Check MRSA nasal screen. Continue steroids and supportive management with nebulization. 08/09/2024 Patient continues to have bilateral rhonchi more so on the right compared to left. He still has wheezing. Saturating 90% on 2 L nasal cannula. Continue ceftriaxone azithromycin. MRSA nares pending. Continue steroids supportive treatment. Pending placement to nursing facility. lock up worker working on this. 08/10/2024 Monitor patient for further diarrhea. He states he is having night sweats and chills. Will monitor for fever. At this time white count is normal. No negation for acute infection. Continue on ceftriaxone and azithromycin at this time. Continue supportive care. I will reduce steroids to prednisone 40 daily at this time. Stop Tamiflu at day 5. Patient may need oxygen at discharge. Will check another oxygen evaluation tomorrow. Plan to discharge tomorrow from the hospital. PDMP PDMP Reviewed: Not Reviewed Attestations 2 Medical Necessity Statement*: Acute bronchitis precipitated by viral infection, possibility of bacterial infection not excluded, starting antibiotics, IV steroids Diagnoses Influenza A J10.1 Dehydration E86.0 Acute respiratory failure with hypoxia J96.01
[2024-08-10] MEDS: cefTRIAXone 1,000 mg SDV 1000 MG IVP (17:10)
[2024-08-11] VITALS (12 sets, daily range): BP systolic 117–155; BP diastolic 75–89; PULSE 73–94; RESP 15–116; TEMP 36.7–37.2; O2SAT 90–95
[2024-08-11] MEDS: ipratropium-albuterol 3 mL Neb INHALATION ×4 (01:41→20:07)
[2024-08-11 03:06] LABS: Basophils % 0.3 %; Eosinophils # 0.1 10^3/uL (0.0-0.8); Eosinophils % 0.5 %; Hematocrit 35.7 % (37-53); Lymphocytes % 21.1 %; Mean Corpuscular HGB Conc 34.7 g/dL (30-55); Mean Corpuscular Hemoglobin 35.4 pg (27-33); Mean Platelet Volume 11.7 fL (7.4-10.4); Monocytes % 10.5 %; Neutrophils # 5.86 10^3/uL (1.8-7.7); Neutrophils % 62.7 %; Nucleated Red Blood Cells % 0 %; Platelet Count 336 10^3/cmm (157-399); Red Cell Distribution Width 14.3 % (12.1-15.1); White Blood Count 9.35 10^3/uL (3.29-11.43)
[2024-08-11 03:26] LABS: Anion Gap 13.6 (5-19); Blood Urea Nitrogen 9 mg/dL (6-20); Carbon Dioxide 26 mmol/L (22-29); Chloride 96 mmol/L (98-107); Creatinine Clr Calc Pharmacy 175.5256; Glomerular Filtration Rate 220.9 mL/min (90-130); Glucose 117 mg/dL (65-115); Osmolality Calculated 274 mOsm/kg (285-295); Potassium 3.6 mmol/L (3.5-5.1); Sodium 132 mmol/L (136-145)
[2024-08-11 03:50] LABS: Slide Review Slide Review Perform
[2024-08-11] MEDS: methylPREDNISolone sod succ 40 mg/mL INJ IVP (06:22)
[2024-08-11] MEDS: budesonide 0.5 mg/2 mL Neb INHALATION ×2 (08:32→20:07)
[2024-08-11] MEDS: aspirin 81 mg EC Tablet PO (09:15)
[2024-08-11] MEDS: heparin 5,000 unit/mL INJ 1 mL 5000 UNIT SUBCUT ×2 (09:15→20:17)
[2024-08-11] MEDS: metoprolol succinate ER (24 HR) 25 mg Tablet 12.5 MG PO (09:15)
[2024-08-11] MEDS: oseltamivir phosphate 75 mg Capsule PO ×2 (09:15→18:24)
[2024-08-11] MEDS: clopidogrel 75 mg Tablet PO (09:15)
[2024-08-11] MEDS: azithromycin 250 mg Tablet 500 MG PO (09:15)
[2024-08-11] MEDS: atorvastatin 40 mg Tablet PO (09:15)
--- NOTE | 2024-08-11 13:42 | P.PN_ITS ---
Subjective 2 Subjective: Seen this morning. Plan to discharge to his truck tomorrow. Patient states that he wants to live in his truck and can get by and will survive. He says he has a way to charge the batteries for his oxygen going forward. Case management is reaching out homeless shelters today. Vitals/I&O/Wt Last Vital Signs Temp 98.5 F 08/11/24 11:22 Pulse 81 08/11/24 11:22 Resp 16 08/11/24 11:22 BP 117/75 08/11/24 11:22 Pulse Ox 91 08/11/24 11:22 O2 Del Method Room Air 08/11/24 11:22 O2 Flow Rate 4 08/10/24 20:39 08/10/24 08/11/24 08/11/24 22:59 06:59 14:59 Intake Total 358 / 958 120 / 1078 712 / 712 Balance 358 / 958 120 / 1078 712 / 712 Weight last 48 hrs Weight 62.051 kg Weight 61.87 kg Physical Exam 2 Narrative: General: No acute distress, AO x3 HEENT: PERRLA, pupils bilaterally equal and reactive, pallors not present Chest: Clear to auscultation bilaterally no wheezes no rhonchi. CVS: S1-S2 regular, no murmurs, no tachycardia, no gallops, no rubs Abdomen: Soft, nontender, no organomegaly, bowel sounds present Neuro: No focal deficits, no facial deformity, AO x3, Data 08/11/24 02:50 08/11/24 02:50 Micro: Microbiology 08/09/24 08:10 Gram Stain - Final Sputum - Expectorated Sputum Sputum Culture - Preliminary A&P Assessment and plan (1) Influenza A: (2) Dehydration: (3) Acute respiratory failure with hypoxia: Plan (1) Influenza A: (2) Acute respiratory failure with hypoxia: (3) Dehydration: (4) Hyponatremia: Plan Acute hypoxia related to Influenza A Likely underlying undiagnosed COPD Clinical looks dehydrated High BNP Requested echo, currently pending Conservative management DuoNeb treatment along steroids to continue Hyponatremia related to hypovolemia Dehydration clinically High BNP noted d/c IVF Elevated D Dimer - check CTA chest Sinus tachycardia: Clinically dehydrated start IV fluids, check D-dimer Patient is homeless, currently living in a truck Heparin as DVT prophylaxis Cardiac diet History of coronary disease continue aspirin and statin August 07, 2024 58-year-old male, currently homeless, living out of his truck, presenting to the hospital with complaints of worsening dyspnea on exertion for 3 days. He had a new oxygen requirement of 4 L/min. He has been expectorating greenish colored sputum. Additionally had subjective fevers at home. Tested positive for influenza. Diffuse wheezing on auscultation bilaterally concerning concerning for acute bronchitis. CTA performed due to elevated D-dimer, negative for PE. 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 Cannot exclude possibility of bacterial infection on top of acute viral process. Start ceftriaxone 1 g IV every 24 hours, azithromycin 500 mg p.o. daily. Continue Tamiflu 75 mg p.o. twice daily. Add budesonide inhalation. Continue IV steroids. August 08, 2024 Continues to have diffuse wheezing on bilateral chest auscultation, however improved over previously. Oxygen requirement at 3 L/min today. Desaturating to 86% with exertion.. Continue Tamiflu. Continue ceftriaxone and azithromycin. Check MRSA nasal screen. Continue steroids and supportive management with nebulization. 08/09/2024 Patient continues to have bilateral rhonchi more so on the right compared to left. He still has wheezing. Saturating 90% on 2 L nasal cannula. Continue ceftriaxone azithromycin. MRSA nares pending. Continue steroids supportive treatment. Pending placement to nursing facility. 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 08/10/2024 Monitor patient for further diarrhea. He states he is having night sweats and chills. Will monitor for fever. At this time white count is normal. No negation for acute infection. Continue on ceftriaxone and azithromycin at this time. Continue supportive care. I will reduce steroids to prednisone 40 daily at this time. Stop Tamiflu at day 5. Patient may need oxygen at discharge. Will check another oxygen evaluation tomorrow. Plan to discharge tomorrow from the hospital. 08/11/2024 No further diarrhea. Doing well. I will stop antibiotics at this time patient has completed 6 days. Tamiflu also stopping today. He required 4 L nasal cannula at discharge on exertion. At rest he does not require any oxygen. Plan to discharge to his truck. Awaiting safe discharge planning. motion picture set up worker working [facility]. PDMP PDMP Reviewed: Not Reviewed Attestations 2 Medical Necessity Statement*: Awaiting safe discharge planning. Diagnoses Influenza A J10.1 Dehydration E86.0 Acute respiratory failure with hypoxia J96.01
[2024-08-11] MEDS: cefTRIAXone 1,000 mg SDV 1000 MG IVP (18:24)
[2024-08-12] VITALS (7 sets, daily range): BP systolic 134–147; BP diastolic 81–88; PULSE 67–80; RESP 15–20; TEMP 36.4–36.8; O2SAT 91–94
[2024-08-12 01:36] LABS: MRSA PCR OZH (swab) NOT DETECTED (Negative)
[2024-08-12] MEDS: methylPREDNISolone sod succ 40 mg/mL INJ IVP (06:52)
[2024-08-12] MEDS: budesonide 0.5 mg/2 mL Neb INHALATION (07:50)
[2024-08-12] MEDS: ipratropium-albuterol 3 mL Neb INHALATION (07:50)
--- NOTE | 2024-08-12 08:06 | XR_ITS ---
WS: [id number] XR chest 1V portable [id number] REASON FOR EXAM: hypoxia FINDINGS: Compared to the previous examination of 08/05/2024, there is been partial resolution of the opacities in the left lower lung with interval development of an area of linear atelectasis. The interstitial and groundglass opacities in the right lower lung are more prominent. There is also an interval small area of linear atelectasis. No other new finding or interval change. XR/XR chest 1V portable [id number] IMPRESSION: Lung opacities more prominent in the right lower lung with some resolution in t he left lower lung. Interval linear atelectasis in both lung bases.
[2024-08-12] MEDS: FUROsemide 10 mg/mL SDV 4mL 40 MG IVP (08:12)
[2024-08-12] MEDS: potassium chloride ER 20 mEq Tablet 40 MEQ PO (08:12)
[2024-08-12] MEDS: clopidogrel 75 mg Tablet PO (08:13)
[2024-08-12] MEDS: metoprolol succinate ER (24 HR) 25 mg Tablet 12.5 MG PO (08:13)
[2024-08-12] MEDS: aspirin 81 mg EC Tablet PO (08:13)
[2024-08-12] MEDS: heparin 5,000 unit/mL INJ 1 mL 5000 UNIT SUBCUT (08:13)
[2024-08-12] MEDS: atorvastatin 40 mg Tablet PO (08:13)
--- NOTE | 2024-08-12 09:18 | PM.DCS ---
Discharge Providers Date of Admission: 08/05/24 21:32 Date of Discharge: August 12, 2024 Attending Provider at Admission: Jairo Loyola MD Attending Provider at Discharge: Alysa Jon MD Primary Care Provider: Genaro Blunt MD Diagnoses at Discharge Discharge Diagnosis (1) Influenza A: Status: Acute (2) Dehydration: Status: Acute (3) Acute respiratory failure with hypoxia: Status: Acute Reason for Visit Reason for Visit: SOB Discharge Data Studies Completed and Pending Completed Studies During Hospitalization Category Date Time Status CTA chest [CT angio chest PE protcl [id number]] Routine Cat Scan 08/06/24 17:45 Completed XR chest 1V portable [id number] Stat Exams 08/05/24 19:36 Completed XR chest 1V portable [id number] Urgent Exams 08/12/24 08:06 Completed CV. echo complete* [id number] Routine Ultrasound 08/06/24 21:08 Completed Radiology Impressions Chest CTA 08/06/24 17:45 IMPRESSION: 1. No pulmonary embolism. 2. Bibasilar dependent infiltrates. 3. Scattered small airways inflammatory centrilobular nodules throughout both lungs more prominent along bases with peribronchial thickening suggesting chronic small airways inflammatory process, possibly from aspiration. Chest X-Ray 08/12/24 08:06 IMPRESSION: Lung opacities more prominent in the right lower lung with some resolution in the left lower lung. Interval linear atelectasis in both lung bases. Laboratory Results WBC 9.35 10^3/uL (3.29-11.43) 08/11/24 02:50 RBC 3.50 10^6/uL (3.85-5.65) L 08/11/24 02:50 Hgb 12.40 g/dL (11.27-16.99) 08/11/24 02:50 Hct 35.7 % (37-53) L 08/11/24 02:50 MCV 102.0 fl (82-101) H 08/11/24 02:50 MCH 35.4 pg (27-33) H 08/11/24 02:50 MCHC 34.7 g/dL (30-55) 08/11/24 02:50 RDW 14.3 % (12.1-15.1) 08/11/24 02:50 Plt Count 336 10^3/cmm (157-399) 08/11/24 02:50 MPV 11.7 fL (7.4-10.4) H 08/11/24 02:50 Neut % (Auto) 62.7 % 08/11/24 02:50 Lymph % (Auto) 21.1 % 08/11/24 02:50 [place] % (Auto) 10.5 % 08/11/24 02:50 Eos % (Auto) 0.5 % 08/11/24 02:50 Baso % (Auto) 0.3 % 08/11/24 02:50 Neut # (Auto) 5.86 10^3/uL (1.8-7.7) 08/11/24 02:50 Lymph # (Auto) 2.0 10^3/uL (0.8-4.8) 08/11/24 02:50 [place] # (Auto) 1.0 10^3/uL (0.2-0.9) H 08/11/24 02:50 Eos # (Auto) 0.1 10^3/uL (0.0-0.8) 08/11/24 02:50 Baso # (Auto) 0.0 10^3/uL (0.0-0.1) 08/11/24 02:50 Nucleated RBC % (auto) 0 % 08/11/24 02:50 Total Counted 100 (0-100) 08/05/24 19:18 Atypical Lymphs % Not Reportable 08/05/24 19:18 Absolute Neutrophils 2.8 10^3/cmm (1.4-6.5) 08/05/24 19:18 Segmented Neutrophils 41 % 08/05/24 19:18 Band Neutrophils 16.0 % 08/05/24 19:18 Lymphocytes (Manual) 26 % 08/05/24 19:18 Monocytes (Manual) 14.0 % 08/05/24 19:18 Absolute Monocytes 0.7 10^3/cmm (0.1-0.6) H 08/05/24 19:18 Eosinophils (Manual) 0 % 08/05/24 19:18 Absolute Eosinophils 0.0 10^3/cmm (0.0-0.7) 08/05/24 19:18 Basophils (Manual) 0.0 % 08/05/24 19:18 Absolute Basophils 0.0 10^3/cmm (0.0-0.2) 08/05/24 19:18 Metamyelocytes 3.0 % 08/05/24 19:18 Nucleated RBCs # 0.0 /100WBC 08/11/24 02:50 Platelet Estimate Decreased (Normal) 08/05/24 19:18 D-Dimer 4.03 ug/mLFEU (0-0.59) H 08/05/24 19:18 Specimen Type Arterial 08/05/24 22:19 Sample Site Radial, right 08/05/24 22:19 ABG pH 7.49 (7.35-7.45) H 08/05/24 22:19 ABG pCO2 33.5 mmHg (35-45) L 08/05/24 22:19 ABG pO2 64.5 mmHg (80.0-100.0) L 08/05/24 22:19 ABG HCO3 25.6 mmol/L (22-26) 08/05/24 22:19 ABG Base Excess 2.7 mmol/L (-2.0-2.0) H 08/05/24 22:19 David Test Pos 08/05/24 22:19 Hematocrit 41.0 % (42-52) L 08/05/24 22:19 Hgb O2 Saturation 91.6 % (95-100) L 08/05/24 22:19 Carboxyhemoglobin 1.6 %THgb (0.4-20.1) 08/05/24 22:19 Methemoglobin 1.0 % (0.4-1.5) 08/05/24 22:19 Total Hemoglobin 13.4 g/dL (14-18) L 08/05/24 22:19 O2 Delivery Device Nc 08/05/24 22:19 O2 Liters/Min 5.0 % 08/05/24 22:19 Addiction Therapist ID [id number] 08/05/24 22:19 Sodium 132 mmol/L (136-145) L 08/11/24 02:50 Potassium 3.6 mmol/L (3.5-5.1) 08/11/24 02:50 Chloride 96 mmol/L (98-107) L 08/11/24 02:50 Carbon Dioxide 26 mmol/L (22-29) 08/11/24 02:50 Anion Gap 13.6 (5-19) 08/11/24 02:50 BUN 9 mg/dL (6-20) 08/11/24 02:50 Creatinine 0.4 mg/dL (0.7-1.2) L 08/11/24 02:50 GFR Calculation 220.9 mL/min (90-130) H 08/11/24 02:50 Glucose 117 mg/dL (65-115) H 08/11/24 02:50 Calculated Osmolality 274 mOsm/kg (285-295) L 08/11/24 02:50 Calcium 8.0 mg/dL (8.5-10.5) L 08/11/24 02:50 Magnesium 2.0 mg/dL (1.7-2.3) 08/11/24 02:50 Total Bilirubin 0.2 mg/dL (0.15-1.2) 08/09/24 04:41 AST 95 U/L (0-40) H 08/09/24 04:41 ALT 94 U/L (0-41) H 08/09/24 04:41 Alkaline Phosphatase 78 U/L (40-130) 08/09/24 04:41 C-Reactive Protein 330.4 mg/L (0.0-4.9) H 08/06/24 05:09 NT-Pro-B Natriuret Pep 1536 pg/mL (0-125) H 08/05/24 19:18 Total Protein 5.8 g/dL (6.6-8.7) L 08/09/24 04:41 Albumin 2.9 g/dL (3.5-5.2) L 08/09/24 04:41 Globulin 2.9 g/dL (1.3-4.6) 08/09/24 04:41 Procalcitonin 0.06 ng/mL (0-0.5) 08/05/24 21:15 Urine Color [place] (Yellow) A 08/06/24 02:40 Urine Appearance Clear (CLEAR) 08/06/24 02:40 Urine pH 6.5 (5-7) 08/06/24 02:40 Ur Specific [place] 1.018 (1.005-1.030) 08/06/24 02:40 Urine Protein 1+ (Negative) A 08/06/24 02:40 Urine Glucose (UA) Negative (Normal) 08/06/24 02:40 Urine Ketones 2+ (Negative) H 08/06/24 02:40 Urine Blood Negative (Negative) 08/06/24 02:40 Urine Nitrate Negative (Negative) 08/06/24 02:40 Urine Bilirubin Negative (Negative) 08/06/24 02:40 Urine Urobilinogen 1.0 mg/dL (Negative) 08/06/24 02:40 Ur Leukocyte Esterase Negative (Negative) 08/06/24 02:40 Urine RBC 3-5 /hpf (0-2) 08/06/24 02:40 Urine WBC 0-5 /hpf (0-5) 08/06/24 02:40 Ur Squamous Epith Cells 0-5 /hpf (0-5) 08/06/24 02:40 Amorphous Sediment Not Reportable 08/06/24 02:40 Urine Bacteria None seen /hpf (NONE) 08/06/24 02:40 Hyaline Casts 1.21 /lpf 08/06/24 02:40 Nasal MRSA (PCR) Not detected (Negative) 08/12/24 00:05 Coronavirus (PCR) Negative (Negative) 08/05/24 19:45 Influenza A (PCR) Positive (Negative) 08/05/24 19:45 Influenza Type B (PCR) Negative (Negative) 08/05/24 19:45 RSV (PCR) Negative (Negative) 08/05/24 19:45 Vitals Last Vital Signs Temp 97.6 F 08/12/24 07:40 Pulse 71 08/12/24 08:03 Resp 18 08/12/24 07:50 BP 144/87 08/12/24 07:40 Pulse Ox 93 08/12/24 07:50 O2 Del Method Room Air 08/12/24 07:50 O2 Flow Rate 3 08/12/24 08:00 Discharge Plan Discharge Patient Disposition: Home Condition: Stable Prescriptions: New aspirin 81 mg Tablet,Delayed Release (Dr/Ec) 81 mg PO DAILY Qty: 30 0RF metoprolol succinate 25 mg Tablet Extended Release 24 Hr 12.5 mg PO DAILY Qty: 30 0RF clopidogrel 75 mg Tablet 75 mg PO DAILY Qty: 30 0RF atorvastatin 40 mg Tablet 40 mg PO DAILY Qty: 30 0RF amoxicillin-pot clavulanate 875-125 mg Tablet 1 tab PO BID 3 Days Qty: 6 0RF Continued No Known Home Medications Other Ambulatory Orders: DME: Oxygen (Order) Location: None Selected Ordered By: Alysa Jon Referrals: Anish Rocha M.D [Physician] - 7-10 days Genaro Blunt MD [Primary Care Provider] - 1-3 days Discharge Diet: Cardiac Discharge Activity: Oxygen as instructed Patient Instructions: Opioid Safety Coding Level of Care Code Acute Code for Chg Fwd Diagnoses Influenza A J10.1 Dehydration E86.0 Acute respiratory failure with hypoxia J96.01
[2024-08-12] MEDS: amoxicillin-clav 875-125 mg Tablet 1 TAB PO (09:40)
--- NOTE | 2024-08-12 10:29 | P.DS_ITS ---
Documented by User: Guy Ortiz 08/12/24 10:47 Discharge Providers Date of Admission: 08/05/24 21:32 Date of Discharge: August 12, 2024 Attending Provider at Admission: Jairo Loyola MD Attending Provider at Discharge: Alysa Jon MD Primary Care Provider: Genaro Blunt MD Diagnoses at Discharge Discharge Diagnosis (1) Influenza A: Status: Acute (2) Dehydration: Status: Acute (3) Acute respiratory failure with hypoxia: Status: Acute Reason for Visit Reason for Visit: SOB Hospital Course Hospital Course Ayaz Llanes is a 58 y/o M with PMHx of NSTEMI with 5 stents who presented to ER on 08/05 for worsening dyspnea on exertion for 3 days and expectorating greenish sputum at time of arrival. Patient was not on oxygen at home and had a new oxygen requirement of 4L/min. Patient tested positive for Influenza A and was started on Tamiflu. CTA performed due to elevated D-dimer, negative for PE. Noted to have scattered small airways inflammatory changes, most likely quality audit representative of acute bronchitis given clinical history and course. Started ceftriaxone 1 g IV every 24 hours, azithromycin 500 mg p.o. daily. Continued Tamiflu 75 mg p.o. twice daily. Added budesonide inhalation and continue IV steroids. MRSA nasal screen was performed and was negative. Continued steroids and supportive management with nebulization. Steroids were tapered down and tamiflu was stopped at day 5. Patient is currently homeless. Social work attempted patient placement to homeless prison or nursing facility but attempt was not successful and patient declined. Patient stated that he will be living in his truck and refuses to take oxygen with him. Discussed the importance of oxygen therapy with patient. This is a choice that the patient is making. Will discharge with 3 days of antibiotics and was instructed to continue taking previous at-home medications. Patient was given refill on his cardiac medications as well and set up appointment with cardiology and advised to follow-up with them as an outpatient. Patient agreeable Discharge Data Studies Completed and Pending Completed Studies During Hospitalization Category Date Time Status CTA chest [CT angio chest PE protcl [id number]] Routine Cat Scan 08/06/24 17:45 Co mpleted XR chest 1V portable [id number] Stat Exams 08/05/24 19:36 Completed XR chest 1V portable [id number] Urgent Exams 08/12/24 08:06 Completed CV. echo complete* [id number] Routine Ultrasound 08/06/24 21:08 Completed Radiology Impressions Chest CTA 08/06/24 17:45 IMPRESSION: 1. No pulmonary embolism. 2. Bibasilar dependent infiltrates. 3. Scattered small airways inflammatory centrilobular nodules throughout both lungs more prominent along bases with peribronchial thickening suggesting chronic small airways inflammatory process, possibly from aspiration. Chest X-Ray 08/12/24 08:06 IMPRESSION: Lung opacities more prominent in the right lower lung with some resolution in the left lower lung. Interval linear atelectasis in both lung bases. Laboratory Results WBC 9.35 10^3/uL (3.29-11.43) 08/11/24 02:50 RBC 3.50 10^6/uL (3.85-5.65) L 08/11/24 02:50 Hgb 12.40 g/dL (11.27-16.99) 08/11/24 02:50 Hct 35.7 % (37-53) L 08/11/24 02:50 MCV 102.0 fl (82-101) H 08/11/24 02:50 MCH 35.4 pg (27-33) H 08/11/24 02:50 MCHC 34.7 g/dL (30-55) 08/11/24 02:50 RDW 14.3 % (12.1-15.1) 08/11/24 02:50 Plt Count 336 10^3/cmm (157-399) 08/11/24 02:50 MPV 11.7 fL (7.4-10.4) H 08/11/24 02:50 Neut % (Auto) 62.7 % 08/11/24 02:50 Lymph % (Auto) 21.1 % 08/11/24 02:50 [place] % (Auto) 10.5 % 08/11/24 02:50 Eos % (Auto) 0.5 % 08/11/24 02:50 Baso % (Auto) 0.3 % 08/11/24 02:50 Neut # (Auto) 5.86 10^3/uL (1.8-7.7) 08/11/24 02:50 Lymph # (Auto) 2.0 10^3/uL (0.8-4.8) 08/11/24 02:50 [place] # (Auto) 1.0 10^3/uL (0.2-0.9) H 08/11/24 02:50 Eos # (Auto) 0.1 10^3/uL (0.0-0.8) 08/11/24 02:50 Baso # (Auto) 0.0 10^3/uL (0.0-0.1) 08/11/24 02:50 Nucleated RBC % (auto) 0 % 08/11/24 02:50 Total Counted 100 (0-100) 08/05/24 19:18 Atypical Lymphs % Not Reportable 08/05/24 19:18 Absolute Neutrophils 2.8 10^3/cmm (1.4-6.5) 08/05/24 19:18 Segmented Neutrophils 41 % 08/05/24 19:18 Band Neutrophils 16.0 % 08/05/24 19:18 Lymphocytes (Manual) 26 % 08/05/24 19:18 Monocytes (Manual) 14.0 % 08/05/24 19:18 Absolute Monocytes 0.7 10^3/cmm (0.1-0.6) H 08/05/24 19:18 Eosinophils (Manual) 0 % 08/05/24 19:18 Absolute Eosinophils 0.0 10^3/cmm (0.0-0.7) 08/05/24 19:18 Basophils (Manual) 0.0 % 08/05/24 19:18 Absolute Basophils 0.0 10^3/cmm (0.0-0.2) 08/05/24 19:18 Metamyelocytes 3.0 % 08/05/24 19:18 Nucleated RBCs # 0.0 /100WBC 08/11/24 02:50 Platelet Estimate Decreased (Normal) 08/05/24 19:18 D-Dimer 4.03 ug/mLFEU (0-0.59) H 08/05/24 19:18 Specimen Type Arterial 08/05/24 22:19 Sample Site Radial, right 08/05/24 22:19 ABG pH 7.49 (7.35-7.45) H 08/05/24 22:19 ABG pCO2 33.5 mmHg (35-45) L 08/05/24 22:19 ABG pO2 64.5 mmHg (80.0-100.0) L 08/05/24 22:19 ABG HCO3 25.6 mmol/L (22-26) 08/05/24 22:19 ABG Base Excess 2.7 mmol/L (-2.0-2.0) H 08/05/24 22:19 David Test Pos 08/05/24 22:19 Hematocrit 41.0 % (42-52) L 08/05/24 22:19 Hgb O2 Saturation 91.6 % (95-100) L 08/05/24 22:19 Carboxyhemoglobin 1.6 %THgb (0.4-20.1) 08/05/24 22:19 Methemoglobin 1.0 % (0.4-1.5) 08/05/24 22:19 Total Hemoglobin 13.4 g/dL (14-18) L 08/05/24 22:19 O2 Delivery Device Nc 08/05/24 22:19 O2 Liters/Min 5.0 % 08/05/24 22:19 Digital Cartographer ID [email or web address] 08/05/24 22:19 Sodium 132 mmol/L (136-145) L 08/11/24 02:50 Potassium 3.6 mmol/L (3.5-5.1) 08/11/24 02:50 Chloride 96 mmol/L (98-107) L 08/11/24 02:50 Carbon Dioxide 26 mmol/L (22-29) 08/11/24 02:50 Anion Gap 13.6 (5-19) 08/11/24 02:50 BUN 9 mg/dL (6-20) 08/11/24 02:50 Creatinine 0.4 mg/dL (0.7-1.2) L 08/11/24 02:50 GFR Calculation 220.9 mL/min (90-130) H 08/11/24 02:50 Glucose 117 mg/dL (65-115) H 08/11/24 02:50 Calculated Osmolality 274 mOsm/kg (285-295) L 08/11/24 02:50 Calcium 8.0 mg/dL (8.5-10.5) L 08/11/24 02:50 Magnesium 2.0 mg/dL (1.7-2.3) 08/11/24 02:50 Total Bilirubin 0.2 mg/dL (0.15-1.2) 08/09/24 04:41 AST 95 U/L (0-40) H 08/09/24 04:41 ALT 94 U/L (0-41) H 08/09/24 04:41 Alkaline Phosphatase 78 U/L (40-130) 08/09/24 04:41 C-Reactive Protein 330.4 mg/L (0.0-4.9) H 08/06/24 05:09 NT-Pro-B Natriuret Pep 1536 pg/mL (0-125) H 08/05/24 19:18 Total Protein 5.8 g/dL (6.6-8.7) L 08/09/24 04:41 Albumin 2.9 g/dL (3.5-5.2) L 08/09/24 04:41 Globulin 2.9 g/dL (1.3-4.6) 08/09/24 04:41 Procalcitonin 0.06 ng/mL (0-0.5) 08/05/24 21:15 Urine Color [place] (Yellow) A 08/06/24 02:40 Urine Appearance Clear (CLEAR) 08/06/24 02:40 Urine pH 6.5 (5-7) 08/06/24 02:40 Ur Specific [place] 1.018 (1.005-1.030) 08/06/24 02:40 Urine Protein 1+ (Negative) A 08/06/24 02:40 Urine Glucose (UA) Negative (Normal) 08/06/24 02:40 Urine Ketones 2+ (Negative) H 08/06/24 02:40 Urine Blood Negative (Negative) 08/06/24 02:40 Urine Nitrate Negative (Negative) 08/06/24 02:40 Urine Bilirubin Negative (Negative) 08/06/24 02:40 Urine Urobilinogen 1.0 mg/dL (Negative) 08/06/24 02:40 Ur Leukocyte Esterase Negative (Negative) 08/06/24 02:40 Urine RBC 3-5 /hpf (0-2) 08/06/24 02:40 Urine WBC 0-5 /hpf (0-5) 08/06/24 02:40 Ur Squamous Epith Cells 0-5 /hpf (0-5) 08/06/24 02:40 Amorphous Sediment Not Reportable 08/06/24 02:40 Urine Bacteria None seen /hpf (NONE) 08/06/24 02:40 Hyaline Casts 1.21 /lpf 08/06/24 02:40 Nasal MRSA (PCR) Not detected (Negative) 08/12/24 00:05 Coronavirus (PCR) Negative (Negative) 08/05/24 19:45 Influenza A (PCR) Positive (Negative) 08/05/24 19:45 Influenza Type B (PCR) Negative (Negative) 08/05/24 19:45 RSV (PCR) Negative (Negative) 08/05/24 19:45 Vitals Last Vital Signs Temp 97.6 F 08/12/24 07:40 Pulse 71 08/12/24 08:03 Resp 18 08/12/24 07:50 BP 144/87 08/12/24 07:40 Pulse Ox 93 08/12/24 07:50 O2 Del Method Room Air 08/12/24 07:50 O2 Flow Rate 3 08/12/24 08:00 Discharge Plan Discharge Patient Disposition: Home Condition: Stable Prescriptions: New atorvastatin 40 mg Tablet 40 mg PO DAILY Qty: 30 0RF clopidogrel 75 mg Tablet 75 mg PO DAILY Qty: 30 0RF aspirin 81 mg Tablet,Delayed Release (Dr/Ec) 81 mg PO DAILY Qty: 30 0RF metoprolol succinate 25 mg Tablet Extended Release 24 Hr 12.5 mg PO DAILY Qty: 30 0RF amoxicillin-pot clavulanate 875-125 mg Tablet 1 tab PO BID 3 Days Qty: 6 0RF Discharge Orders: Discharge Order (Routine); Ordered 08/12/24 Ordered By: Alysa Jon Other Ambulatory Orders: DME: Oxygen (Order) Location: None Selected Ordered By: Alysa Jon Referrals: Delphine Haro FNP [Referring] - 08/19/24 10:00 am Anish Rocha M.D [Physician] - 7-10 days (We have notified your physician's clinic of the need for a follow-up appointment to be scheduled. If you have not heard from them within the next 2 business days, please call them directly. ) Discharge Diet: Cardiac Discharge Activity: Oxygen as instructed Patient Instructions: Metoprolol (By mouth), Aspirin (By mouth), Amoxicillin/Clavulanate Potassium (By mouth), Atorvastatin (By mouth), Clopido grel (By mouth) (Plavix), Dehydration (DC), Influenza (DC), Hypoxia (ED), Opioid Safety Coding Level of Care Code Acute Code for Chg Fwd Diagnoses Influenza A J10.1 Dehydration E86.0 Acute respiratory failure with hypoxia J96.01 Documented by User: Alysa Jon MD 08/12/24 11:52 Diagnoses at Discharge Discharge Diagnosis (1) Influenza A: Status: Acute (2) Dehydration: Status: Acute (3) Acute respiratory failure with hypoxia: Status: Acute Reason for Visit Reason for Visit: SOB Hospital Course Hospital Course Ayaz Llanes is a 58 y/o M with PMHx of NSTEMI with 5 stents who presented to ER on 08/05 for worsening dyspnea on exertion for 3 days and expectorating greenish sputum at time of arrival. Patient was not on oxygen at home and had a new oxygen requirement of 4L/min. Patient tested positive for Influenza A and was started on Tamiflu. CTA performed due to elevated D-dimer, negative for PE. Noted to have scattered small airways inflammatory changes, most likely quality audit representative of acute bronchitis given clinical history and course. Started ceftriaxone 1 g IV every 24 hours, azithromycin 500 mg p.o. daily. Continued Tamiflu 75 mg p.o. twice daily. Added budesonide inhalation and continue IV steroids. MRSA nasal screen was performed and was negative. Continued steroids and supportive management with nebulization. Steroids were tapered down and tamiflu was stopped at day 5. Patient is currently homeless. Social work attempted patient placement to homeless prison or nursing facility but attempt was not successful and patient declined. Patient stated that he will be living in his truck and refuses to take oxygen with him. Discussed the importance of oxygen therapy with patient. This is a choice that the patient is making. Will discharge with 3 days of antibiotics and was instructed to continue taking previous at-home medications. Patient was given refill on his cardiac medications as well and set up appointment with cardiology and advised to follow-up with them as an outpatient. Patient agreeable Physical Exam Narrative: General: No acute distress, AO x3 HEENT: PERRLA, pupils bilaterally equal and reactive, pallors not present, patient on room air this morning Chest: Clear to auscultation bilaterally no wheezes no rhonchi. CVS: S1-S2 regular, no murmurs, no tachycardia, no gallops, no rubs Abdomen: Soft, nontender, no organomegaly, bowel sounds present Neuro: No focal deficits, no facial deformity, AO x3, Discharge Plan Discharge Patient Disposition: Home Condition: Stable Prescriptions: New atorvastatin 40 mg Tablet 40 mg PO DAILY Qty: 30 0RF clopidogrel 75 mg Tablet 75 mg PO DAILY Qty: 30 0RF aspirin 81 mg Tablet,Delayed Release (Dr/Ec) 81 mg PO DAILY Qty: 30 0RF metoprolol succinate 25 mg Tablet Extended Release 24 Hr 12.5 mg PO DAILY Qty: 30 0RF amoxicillin-pot clavulanate 875-125 mg Tablet 1 tab PO BID 3 Days Qty: 6 0RF Discharge Orders: Discharge Order (Routine); Ordered 08/12/24 Ordered By: Alysa Jon Other Ambulatory Orders: DME: Oxygen (Order) Location: None Selected Ordered By: Alysa Jon Referrals: Delphine Haro FNP [Referring] - 08/19/24 10:00 am Anish Rocha M.D [Physician] - 7-10 days (We have notified your physician's clinic of the need for a follow-up appointment to be scheduled. If you have not heard from them within the next 2 business days, please call them directly. ) Discharge Diet: Cardiac Discharge Activity: Oxygen as instructed Patient Instructions: Metoprolol (By mouth), Aspirin (By mouth), Amoxicillin/Clavulanate Potassium (By mouth), Atorvastatin (By mouth), Clopidogrel (By mouth) (Plavix), Dehydration (DC), Influenza (DC), Hypoxia (ED), Opioid Safety Discharge Attestations Time Spent in Discharge Care*: greater than 30 min Quality Metrics Clinical Quality Measures [ No reported AMI, CVA or VTE this stay] Coding Level of Care Code Acute Code for [facility] Fwd Diagnoses Influenza A J10.1 Dehydration E86.0 Acute respiratory failure with hypoxia J96.01
== END 2024-08-12 12:45 | disposition home or self-care (01) | DRG 193 ==
LOC: ER 21:09 → MEDSURG 21:32
PROVIDERS: Student in an Organized Health Care Education/Training Program; Admitting Provider Internal Medicine; Emergency Provider Emergency Medicine; PCP Family Medicine; Visit Provider Internal Medicine
DX: J10.1 Influenza due to other identified influenza virus with other respiratory manifestations (principal); J96.01 Acute respiratory failure with hypoxia; Z59.02 Unsheltered homelessness; E87.1 Hypo-osmolality and hyponatremia; E86.0 Dehydration; J20.9 Acute bronchitis, unspecified; F17.200 Nicotine dependence, unspecified, uncomplicated; E86.1 Hypovolemia; I25.10 Atherosclerotic heart disease of native coronary artery without angina pectoris; I25.2 Old myocardial infarction; Z95.5 Presence of coronary angioplasty implant and graft; Z79.02 Long term (current) use of antithrombotics/antiplatelets
CPT/HCPCS: 36415; 36600; 71045; 71275; 80048; 80053; 81001; 82805; 83735; 83880; 84145; 85007; 85025; 85378; 86140; 87070; 87205; 87637; 93005; 93306; 94640; 94664; 94760; 96372; 96374; 99285; J0696; J1644; J1940; J2919; J7030; J7613; J7626; Q0144

== ENCOUNTER 2024-08-18 08:30 | Emergency (ER) | payer MEDICAID, SELFPAY ==
[2024-08-18] VITALS (11 sets, daily range): BP systolic 135–149; BP diastolic 81–95; PULSE 75–85; RESP 19–32; TEMP 36.7; O2SAT 92–96; BMI 23.3
--- NOTE | 2024-08-18 08:33 | XR_ITS ---
WS: [id number] PORTABLE CHEST HISTORY: dyspnea/cough COMPARISON: 08/12/2024 Curvilinear atelectasis at the LEFT lung base posterior to the LEFT heart. Otherwise lungs are clear. No pneumonia. No pleural effusion or pneumothorax. Cardiac size: Normal. Mediastinum/Aorta: Mildly ectatic aorta. No mediastinal widening. No osseous abnormality seen. XR/XR chest 1V portable [id number] IMPRESSION: 1. No pneumonia. 2. Subsegmental curvilinear atelectasis at the LEFT lung base.
--- NOTE | 2024-08-18 08:34 | ECG_ITS ---
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 Measurements Intervals [place] Rate: 69 P: 0 UT: 0 QRS: 43 QRSD: 90 T: -28 QT: 370 QTc: 397 Interpretive Statements SUPRAVENTRICULAR RHYTHM NONSPECIFIC T-WAVE ABNORMALITY Compared to ECG 08/05/2024 20:50:24 Supraventricular rhythm now present T-wave abnormality now present Sinus tachycardia no longer present Electronically Signed On 08-19-2024 17:53:46 TECHNICAL EDUCATION TEACHER by Anish Rocha M.D. [email or web address]
[2024-08-18 08:46] LABS: Basophils % 0.3 %; Eosinophils % 0.4 %; Hematocrit 38.3 % (37-53); Lymphocytes % 13.5 %; Mean Corpuscular HGB Conc 33.9 g/dL (30-55); Mean Corpuscular Hemoglobin 35.7 pg (27-33); Mean Corpuscular Volume 105.2 fl (82-101); Mean Platelet Volume 10.3 fL (7.4-10.4); Monocytes # 1.2 10^3/uL (0.2-0.9); Neutrophils # 5.44 10^3/uL (1.8-7.7); Neutrophils % 70.3 %; Nucleated Red Blood Cells % 0 %; Platelet Count 368 10^3/cmm (157-399); Red Blood Count 3.64 10^6/uL (3.85-5.65); Red Cell Distribution Width 14.8 % (12.1-15.1); White Blood Count 7.73 10^3/uL (3.29-11.43)
--- NOTE | 2024-08-18 09:03 | ED_ITS ---
HPI - SOB/Dyspnea 2 General: Chief Complaint: Shortness of Breath/Dyspnea Stated Complaint: SOB Time Seen by Provider: 08/18/24 08:31 History of Present Illness: HPI Narrative: 58-year-[facility] of breath. He was recently hospitalized For influenza A. Patient had been sleeping good [facility] and did not want to stay there anymore so he is seeing his truck he says he cannot catch his breath. He had a rather prolonged hospital stay for influenza that actually try to get him to go home with oxygen and/or to go to the senior living but he refused. He has not had any fever sweats or chills he still has a cough it has been nonproductive. No chest pain. Associated symptoms: Deny abdominal pain, chest pain or fever(s) Related Data Previous Rx's ?Medication ?Instructions ?Recorded aspirin 81 mg tablet,delayed 81 mg PO DAILY #30 tabs 0 08/12/24 release atorvastatin 40 mg tablet 40 mg PO DAILY #30 tabs 07/31 09/21 clopidogrel 75 mg tablet 75 mg PO DAILY #30 tabs 07/31 09/21 metoprolol succinate 25 mg 12.5 mg (1/2 x 25 mg) PO DA KELLIE #30 08/12/24 tablet,extended release 24 hr tabs albuterol sulfate 90 mcg/actuation 2 inh inhalation Q4 H PRN shortness 08/18/24 aerosol inhaler of breath or wheezing #18 gr ams doxycycline hyclate 100 mg capsule 100 mg PO BID 10 da ys #20 caps 08/18/24 methylprednisolone 4 mg tablets in See Rx Instructions PO .COMPLEX 08/18/24 a dose pack (Medrol (Douglas)) #21 ea Allergies Allergy/AdvReac Type Severity Reaction Status Date / Time No Known Allergies Allergy Verified 07/05/23 09:47 Review of Systems 2 Const: Denies: fever(s) or chills Card: Denies: chest pain Resp: Denies: dyspnea GI: Denies: abdominal pain : Denies: dysuria, urinary frequency or urinary urgency Musc: Denies: neck pain or back pain Skin/Breast: Denies: rash PFSH ED 2 PFSH: Medical History Acute non-ST elevation myocardial infarction (NSTEMI) Tobacco abuse Chest pain Alcohol abuse No pertinent past medical history Surgical History No history of previous surgery No pertinent past surgical history Social History Smoking and tobacco/nicotine status: current every day tobacco/nicotine user Alcohol intake: current Alcohol intake frequency: holidays/special occasions only Physical Exam 2 Const: COMMON NORMALS: no acute distress GENERAL APPEARANCE: cooperative and comfortable ORIENTATION/CONSCIOUSNESS: Yes awake, Yes oriented to person, Yes oriented to place and Yes oriented to time HENMT: COMMON NORMALS: normocephalic, atraumatic and hearing grossly normal bilaterally HEAD & SCALP: normocephalic and atraumatic Resp: COMMON NORMALS: normal respiratory effort, No retractions, No use of accessory muscles and clear to auscultation bilaterally AUSCULTATION: clear to auscultation bilaterally Cardio: COMMON NORMALS: regular rate, regular rhythm and No murmurs present (Cardio) RATE: regular rate RHYTHM: regular rhythm GI: COMMON NORMALS: Soft to palpation and No hepatosplenomegaly present A USCULTATION: Yes normoactive bowel sounds PALPATION: Yes Soft to palpation, No Tenderness to palpation present (GI), No Guarding due to palpation present (GI) and Yes No hepatosplenomegaly present Extremity: COMMON NORMALS: normal to inspection, capillary refill normal, no clubbing, cyanosis or edema, no calf tenderness and no pedal edema Neuro: SENSORIUM/ORIENTATION: Yes oriented to person, Yes oriented to place and Yes oriented to time Skin: COMMON NORMALS: no rashes or lesions noted GENERAL SKIN EXAM: no rashes or lesions noted Course 2 Vital Signs: Vital signs: Vital Signs Temperature 98.0 F 08/18/24 08:31 Pulse Rate 75 08/18/24 10:32 Respiratory Rate 29 H 08/18/24 10:25 Blood Pressure 135/84 08/18/24 10:32 Pulse Oximetry 94 08/18/24 10:32 Oxygen Delivery Me thod Room Air 08/18/24 10:25 MDM - SOB/Dyspnea Medical Decision Making Chest x-ray and swabs reviewed. No significant thigh no leukocytosis no infiltrates on chest x-ray. Swabs were all negative. His lung exam is normal. He is not requiring any supplemental oxygen will discharge him home based on his symptoms we will put him on a taper of steroids use albuterol every 4 hours while awake also 10-day course of doxycycline recheck if not improving Medical Records I reviewed the patient's medical records. Lab Data I reviewed the patient's lab results. 08/18/24 08:43 08/18/24 08:43 Labs/Radiology: Radiology Impressions Chest X-Ray 08/18/24 08:33 IMPRESSION: 1. No pneumonia. 2. Subsegmental curvilinear atelectasis at the LEFT lung base. Laboratory Results WBC 7.73 10^3/uL (3.29-11.43) 08/18/24 08:43 RBC 3.64 10^6/uL (3.85-5.65) L 08/18/24 08:43 Hgb 13.00 g/dL (11.27-16.99) 08/18/24 08:43 Hct 38.3 % (37-53) 08/18/24 08:43 MCV 105.2 fl (82-101) H 08/18/24 08:43 MCH 35.7 pg (27-33) H 08/18/24 08:43 MCHC 33.9 g/dL (30-55) 08/18/24 08:43 RDW 14.8 % (12.1-15.1) 08/18/24 08:43 Plt Count 368 10^3/cmm (157-399) 08/18/24 08:43 MPV 10.3 fL (7.4-10.4) 08/18/24 08:43 Neut % (Auto) 70.3 % 08/18/24 08:43 Lymph % (Auto) 13.5 % 08/18/24 08:43 [place] % (Auto) 15.0 % 08/18/24 08:43 Eos % (Auto) 0.4 % 08/18/24 08:43 Baso % (Auto) 0.3 % 08/18/24 08:43 Neut # (Auto) 5.44 10^3/uL (1.8-7.7) 08/18/24 08:43 Lymph # (Auto) 1.0 10^3/uL (0.8-4.8) 08/18/24 08:43 [place] # (Auto) 1.2 10^3/uL (0.2-0.9) H 08/18/24 08:43 Eos # (Auto) 0.0 10^3/uL (0.0-0.8) 08/18/24 08:43 Baso # (Auto) 0.0 10^3/uL (0.0-0.1) 08/18/24 08:43 Nucleated RBC % (auto) 0 % 08/18/24 08:43 Nucleated RBCs # 0.0 /100WBC 08/18/24 08:43 Specimen Type Arterial 08/18/24 09:10 Sample Site Radial, left 08/18/24 09:10 ABG pH 7.47 (7.35-7.45) H 08/18/24 09:10 ABG pCO2 37.4 mmHg (35-45) 08/18/24 09:10 ABG pO2 63.4 mmHg (80.0-100.0) L 08/18/24 09:10 ABG HCO3 27.3 mmol/L (22-26) H 08/18/24 09:10 ABG O2 Saturation 93.9 08/18/24 09:10 ABG Base Excess 3.6 mmol/L (-2.0-2.0) H 08/18/24 09:10 David Test Pos 08/18/24 09:10 A-a O2 Gradient 5.5 mmHg (5-10) 08/18/24 09:10 Hematocrit 40.4 % (42-52) L 08/18/24 09:10 Hgb O2 Saturation 90.1 % (95-100) L 08/18/24 09:10 Carboxyhemoglobin 2.7 %THgb (0.4-20.1) 08/18/24 09:10 Methemoglobin 1.3 % (0.4-1.5) 08/18/24 09:10 Total Hemoglobin 13.2 g/dL (14-18) L 08/18/24 09:10 Sodium 134.0 mmol/L (131-143) 08/18/24 09:10 Potassium 3.9 mmol/L (3.5-5.0) 08/18/24 09:10 Glucose 106.0 mg/dL (70-115) 08/18/24 09:10 Ionized Calcium 1.2 mmol/L (1.1-1.4) 08/18/24 09:10 O2 Delivery Device Room air 08/18/24 09:10 Trans Router ID Anonymous 08/18/24 09:10 Sodium 133 mmol/L (136-145) L 08/18/24 08:43 Potassium 4.5 mmol/L (3.5-5.1) 08/18/24 08:43 Chloride 94 mmol/L (98-107) L 08/18/24 08:43 Carbon Dioxide 26 mmol/L (22-29) 08/18/24 08:43 Anion Gap 17.5 (5-19) 08/18/24 08:43 BUN 10 mg/dL (6-20) 08/18/24 08:43 Creatinine 0.6 mg/dL (0.7-1.2) L 08/18/24 08:43 GFR Calculation 138.4 mL/min (90-130) H 08/18/24 08:43 Glucose 114 mg/dL (65-115) 08/18/24 08:43 Calculated Osmolality 276 mOsm/kg (285-295) L 08/18/24 08:43 Calcium 9.1 mg/dL (8.5-10.5) 08/18/24 08:43 Total Bilirubin 0.4 mg/dL (0.15-1.2) 08/18/24 08:43 AST 28 U/L (0-40) 08/18/24 08:43 ALT 54 U/L (0-41) H 08/18/24 08:43 Alkaline Phosphatase 72 U/L (40-130) 08/18/24 08:43 Total Protein 6.4 g/dL (6.6-8.7) L 08/18/24 08:43 Albumin 3.5 g/dL (3.5-5.2) 08/18/24 08:43 Globulin 2.9 g/dL (1.3-4.6) 08/18/24 08:43 Influenza A (PCR) Negative (Negative) 08/18/24 09:14 Influenza Type B (PCR) Negative (Negative) 08/18/24 09:14 RSV (PCR) Negative (Negative) 08/18/24 09:14 SARS-CoV-2 (PCR) Negative (Negative) 08/18/24 09:14 All radiology interpretation(s) finalized by discharge Discharge Plan Discharge Patient Disposition: Home Clinical Impression: COPD (chronic obstructive pulmonary disease) Condition: Stable Prescriptions: New doxycycline hyclate 100 mg capsule 100 mg PO BID 10 Days Qty: 20 0RF methylprednisolone [Medrol (Douglas)] 4 mg tablets,dose pack See Rx Instructions .ROUTE .COMPLEX Qty: 21 0RF Rx Instructions: orally per package directions albuterol sulfate 90 mcg/actuation HFA aerosol inhaler 2 inh INHALATION Q4H PRN (Reason: shortness of breath or wheezing) Qty: 18 0RF No Action atorvastatin 40 mg Tablet 40 mg PO DAILY Qty: 30 0RF clopidogrel 75 mg Tablet 75 mg PO DAILY Qty: 30 0RF aspirin 81 mg Tablet,Delayed Release (Dr/Ec) 81 mg PO DAILY Qty: 30 0RF metoprolol succinate 25 mg Tablet Extended Release 24 Hr 12.5 mg PO DAILY Qty: 30 0RF Discharge Orders: Discharge ED (Routine); Ordered 08/18/24 Ordered By: Edward Perez Referrals: Genaro Blunt MD [Primary Care Provider] - Discharge Diet: Usual diet Discharge Activity: Resume usual activity Patient Instructions: Opioid Safety, Pain Management Activity Restrictions/Additional Instructions: Thank you for choosing [facility] for your healthcare needs today. It is very important that you follow up as instructed or that you return to the Emergency Department should you have concerns or if your condition changes or worsens in any way. You are seen in the emergency room with complaint shortness of breath your chest x-ray is normal your blood gas shows well compensated COPD. Your white count is normal and swabs for flu COVID and RSV were all negative. Recommend a steroid taper regular use of albuterol as needed for wheezing also put you on a course of doxycycline follow-up with your primary care doctor. Print Language: Croatian Coding Level of Care Code ED Medical Records Director for Jana Narayan
[2024-08-18 09:07] LABS: Alanine Aminotransferase 54 U/L (0-41); Albumin Level 3.5 g/dL (3.5-5.2); Alkaline Phosphatase 72 U/L (40-130); Anion Gap 17.5 (5-19); Aspartate Amino Transferase 28 U/L (0-40); Blood Urea Nitrogen 10 mg/dL (6-20); Calcium 9.1 mg/dL (8.5-10.5); Carbon Dioxide 26 mmol/L (22-29); Chloride 94 mmol/L (98-107); Creatinine Clr Calc Pharmacy 118.2569; Globulin 2.9 g/dL (1.3-4.6); Glomerular Filtration Rate 138.4 mL/min (90-130); Glucose 114 mg/dL (65-115); Osmolality Calculated 276 mOsm/kg (285-295); Potassium 4.5 mmol/L (3.5-5.1); Sodium 133 mmol/L (136-145); Total Bilirubin 0.4 mg/dL (0.15-1.2); Total Protein 6.4 g/dL (6.6-8.7)
[2024-08-18] MEDS: ipratropium-albuterol 3 mL Neb INHALATION (09:16)
[2024-08-18 09:24] LABS: ABG PCO2 37.4 mmHg (35-45); ABG PH Result 7.47 (7.35-7.45); Alveolar-Arterial Oxygen Gradi 5.5 mmHg (5-10); Arterial Blood Gas Hematocrit 40.4 % (42-52); Base Excess ABG 3.6 mmol/L (-2.0-2.0); Blood Gas Allen Test Pos; Blood Gas Operator Identificat Anonymous; Blood Gas Sample Site Radial, left; Blood Gas Sample Type Arterial; Carboxyhemoglobin 2.7 %THgb (0.4-20.1); HCO3 ABG 27.3 mmol/L (22-26); HGB O2 Sat 90.1 % (95-100); Ionized Calcium Level - ABG 1.2 mmol/L (1.1-1.4); Methemoglobin 1.3 % (0.4-1.5); Oxygen Device ROOM AIR; Oxygen Saturation ABG 93.9; PO2 ABG 63.4 mmHg (80.0-100.0); Potassium Level - ABG 3.9 mmol/L (3.5-5.0); Total Hemoglobin 13.2 g/dL (14-18)
--- NOTE | 2024-08-18 09:32 | PC.PHAR ---
Pt states has not taken any of his medications, not even asa since he was here last.
[2024-08-18] MEDS: methylPREDNISolone sod succ 125 mg/2 mL INJ IVP (09:39)
[2024-08-18 09:56] LABS: Influenza A NEGATIVE (Negative); Influenza B NEGATIVE (Negative); Respiratory Syncytial Virus Ce NEGATIVE (Negative); SARS-CoV-2 PCR NEGATIVE (Negative)
--- NOTE | 2024-08-18 10:52 | PC.NURSE ---
Nirmal Gee approved a cab ride back to his truck at the [employer] on [facility]. Pt thanked us for this.
== END 2024-08-18 10:30 | disposition home or self-care (01) ==
PROVIDERS: Emergency Provider Family Medicine; PCP Family Medicine
DX: J44.9 Chronic obstructive pulmonary disease, unspecified (principal); Z11.52 Encounter for screening for COVID-19; Z79.02 Long term (current) use of antithrombotics/antiplatelets; Z79.82 Long term (current) use of aspirin; Z72.0 Tobacco use
CPT/HCPCS: 36415; 36600; 71045; 80051; 80053; 82330; 82805; 85025; 87637; 93005; 96374; 99285; J2919

== ENCOUNTER 2024-08-29 15:58 | Emergency (ER) | payer MEDICAID, SELFPAY ==
[2024-08-29 16:01] VITALS: BP 141/79; PULSE 99; RESP 18; TEMP 36.4; O2SAT 97; BMI 24.1
--- NOTE | 2024-08-29 16:07 | ECG_ITS ---
[facility] Test Date: 2024-08-29 Pat Name: Ayaz Llanes Department: Room: Gender: Male Coater Associate: : 1965 Requested By: Albaro Bell Order Number: [id number] May MD: Dago Avalos M.D. Measurements Intervals [place] Rate: 92 P: 47 MO: 131 QRS: 2 QRSD: 91 T: -7 QT: 342 QTc: 424 Interpretive Statements SINUS RHYTHM Compared to ECG 08/18/2024 09:05:14 Supraventricular rhythm no longer present T-wave abnormality no longer present Electronically Signed On 08-29-2024 17:18:56 [employer] by Dago Avalos M.D. [email or web address]
--- NOTE | 2024-08-29 16:33 | XRR_ITS ---
PROCEDURE INFORMATION: Exam: XR Chest Exam date and time: 08/29/2024 4:39 PM Age: 58 years old Clinical indication: Shortness of breath; Prior surgery; Surgery date: 1-6 months; Surgery type: Coronary stents; Additional info: SOB TECHNIQUE: Imaging protocol: Radiologic exam of the chest. Views: 1 view. COMPARISON: CR XR chest 1V portable [id number] 08/18/2024 8:35 AM FINDINGS: Lungs: Unremarkable. No consolidation. Pleural spaces: Unremarkable. No pleural effusion. No pneumothorax. Heart/Mediastinum: Unremarkable. No cardiomegaly. Bones/joints: Unremarkable. XR/XR chest 1V portable [id number] IMPRESSION: No acute findings.
--- NOTE | 2024-08-29 16:38 | ED_ITS ---
HPI - General Adult 2 General: Chief complaint: General Medical Stated complaint: sores in nose, ankle swelling Time Seen by Provider: 08/29/24 16:34 Source: patient Mode of arrival: ambulatory Limitations: no limitations History of Present Illness: 58-year-old male who states has been hav ing swelling to his ankle over the last 3 to 4 days. He does have a history of heart disease states he is not on Lasix has never had swelling like this he states he has been on his feet a lot he is currently living in his truck. Had some mild dyspnea he denies any chest pain denies any fever states that his nose feels wall on the inside as well. He denies any worse improved factors Associated symptoms: Deny chest pain, headache(s), nausea, rash or vomiting Related Data Previous Rx's ?Medication ?Instructions ?Recorded aspirin 81 mg tablet,delayed 81 mg PO DAILY #30 tabs 0 08/12/24 release atorvastatin 40 mg tablet 40 mg PO DAILY #30 tabs 07/31 09/21 clopidogrel 75 mg tablet 75 mg PO DAILY #30 tabs 07/31 09/21 metoprolol succinate 25 mg 12.5 mg (1/2 x 25 mg) PO DA KELLIE #30 08/12/24 tablet,extended release 24 hr tabs albuterol sulfate 90 mcg/actuation 2 inh inhalation Q4 H PRN shortness 08/18/24 aerosol inhaler of breath or wheezing #18 gr ams furosemide 40 mg tablet (Lasix) 40 mg PO DAILY PRN tressa ma #30 tabs 08/29/24 Allergies Allergy/AdvReac Type Severity Reaction Status Date / Time No Known Allergies Allergy Verified 08/29/24 16:08 Review of Systems 2 Const: Denies: fever(s), chills, body aches or change in appetite ENMT: Denies: throat pain or dental pain Card: Denies: chest pain Resp: Denies: non-productive cough GI: Denies: abdominal pain, nausea, vomiting or diarrhea Musc: Reports: extremity swelling; Denies: neck pain or back pain Skin/Breast: Denies: rash Neuro: Denies: headache(s) Psych: Denies: depression PFSH ED 2 PFSH: Medical History Acute non-ST elevation myocardial infarction (NSTEMI) Tobacco abuse Chest pain Alcohol abuse No pertinent past medical history Surgical History No history of previous surgery No pertinent past surgical history Social History Smoking and tobacco/nicotine status: current every day tobacco/nicotine user Alcohol intake: current Alcohol intake frequency: holidays/special occasions only Physical Exam 2 Const: COMMON NORMALS: no acute distress, patient oriented x3 and healthy appearing HENMT: COMMON NORMALS: normocephalic and atraumatic HEAD & SCALP: n ormocephalic and atraumatic Eye: COMMON NORMALS: conjunctivae normal CONJUNCTIVA: Yes conjunctivae normal Neck/C-Spine: COMMON NORMALS: full ROM and supple Chest: COMMONS NORMALS: normal inspection of the chest and normal palpation of entire chest wall Resp: COMMON NORMALS: normal respiratory effort, No retractions, No use of accessory muscles and clear to auscultation bilaterally AUSCULTATION: clear to auscultation bilaterally Cardio: COMMON NORMALS: regular rate, regular rhythm and No murmurs present (Cardio) RATE: regular rate RHYTHM: regular rhythm GI: COMMON NORMALS: Normal to inspection, nondistended, normoactive bowel sounds present Extremity: NARRATIVE EXTREMITY EXAM: 2+edema to le distal pulses palpable Neuro: COMMON NORMALS: patient oriented x3, moves all extremities and no focal motor deficits Psych: COMMON NORMALS: mental status grossly normal, Normal thought process present and cooperative THOUGHT PROCESS: Normal thought process present Skin: COMMON NORMALS: no rashes or lesions noted and no wounds GENERAL SKIN EXAM: no rashes or lesions noted Course 2 Vital Signs: Vital signs: Vital Signs Temperature 97.6 F 08/29/24 16:01 Pulse Rate 99 08/29/24 16:01 Respiratory Rate 18 08/29/24 16:01 Blood Pressure 141/79 08/29/24 16:01 Pulse Oximetry 97 08/29/24 16:01 Oxygen Delivery Me thod Room Air 08/29/24 16:01 MDM - General Adult Medical Decision Making Patient presents here with lower extremity edema blood work x-ray here negative did give him some IV Lasix we will prescribe Lasix as well informed him he should try compression stockings as well he is to follow-up with PCP return if worsening. Medical Records I reviewed the patient's medical records. Lab Data I reviewed the patient's lab results. 08/29/24 16:50 08/29/24 16:50 Laboratory Results WBC 5.36 10^3/uL (3.29-11.43) 08/29/24 16:50 RBC 3.57 10^6/uL (3.85-5.65) L 08/29/24 16:50 Hgb 12.60 g/dL (11.27-16.99) 08/29/24 16:50 Hct 37.6 % (37-53) 08/29/24 16:50 MCV 105.3 fl (82-101) H 08/29/24 16:50 MCH 35.3 pg (27-33) H 08/29/24 16:50 MCHC 33.5 g/dL (30-55) 08/29/24 16:50 RDW 14.6 % (12.1-15.1) 08/29/24 16:50 Plt Count 173 10^3/cmm (157-399) 08/29/24 16:50 MPV 11.3 fL (7.4-10.4) H 08/29/24 16:50 Neut % (Auto) 51.0 % 08/29/24 16:50 Lymph % (Auto) 33.6 % 08/29/24 16:50 [place] % (Auto) 9.9 % 08/29/24 16:50 Eos % (Auto) 4.9 % 08/29/24 16:50 Baso % (Auto) 0.4 % 08/29/24 16:50 Neut # (Auto) 2.74 10^3/uL (1.8-7.7) 08/29/24 16:50 Lymph # (Auto) 1.8 10^3/uL (0.8-4.8) 08/29/24 16:50 [place] # (Auto) 0.5 10^3/uL (0.2-0.9) 08/29/24 16:50 Eos # (Auto) 0.3 10^3/uL (0.0-0.8) 08/29/24 16:50 Baso # (Auto) 0.0 10^3/uL (0.0-0.1) 08/29/24 16:50 Nucleated RBC % (auto) 0 % 08/29/24 16:50 Nucleated RBCs # 0.0 /100WBC 08/29/24 16:50 Sodium 143 mmol/L (136-145) 08/29/24 16:50 Potassium 3.6 mmol/L (3.5-5.1) 08/29/24 16:50 Chloride 106 mmol/L (98-107) 08/29/24 16:50 Carbon Dioxide 26 mmol/L (22-29) 08/29/24 16:50 Anion Gap 14.6 (5-19) 08/29/24 16:50 BUN 15 mg/dL (6-20) 08/29/24 16:50 Creatinine 0.5 mg/dL (0.7-1.2) L 08/29/24 16:50 GFR Calculation 170.8 mL/min (90-130) H 08/29/24 16:50 Glucose 134 mg/dL (65-115) H 08/29/24 16:50 Calculated Osmolality 299 mOsm/kg (285-295) H 08/29/24 16:50 Calcium 8.2 mg/dL (8.5-10.5) L 08/29/24 16:50 Total Bilirubin 0.2 mg/dL (0.15-1.2) 08/29/24 16:50 AST 33 U/L (0-40) 08/29/24 16:50 ALT 33 U/L (0-41) 08/29/24 16:50 Alkaline Phosphatase 78 U/L (40-130) 08/29/24 16:50 NT-Pro-B Natriuret Pep 198 pg/mL (0-125) H 08/29/24 16:50 Total Protein 6.1 g/dL (6.6-8.7) L 08/29/24 16:50 Albumin 3.8 g/dL (3.5-5.2) 08/29/24 16:50 Globulin 2.3 g/dL (1.3-4.6) 08/29/24 16:50 All radiology interpretation(s) finalized by discharge Discharge Plan Discharge Patient Disposition: Home Clinical Impression: Edema of lower extremity Condition: Stable Prescriptions: New furosemide [Lasix] 40 mg tablet 40 mg PO DAILY PRN (Reason: edema) Qty: 30 0RF No Action atorvastatin 40 mg Tablet 40 mg PO DAILY Qty: 30 0RF clopidogrel 75 mg Tablet 75 mg PO DAILY Qty: 30 0RF aspirin 81 mg Tablet,Delayed Release (Dr/Ec) 81 mg PO DAILY Qty: 30 0RF metoprolol succinate 25 mg Tablet Extended Release 24 Hr 12.5 mg PO DAILY Qty: 30 0RF albuterol sulfate 90 mcg/actuation HFA aerosol inhaler 2 inh INHALATION Q4H PRN (Reason: shortness of breath or wheezing) Qty: 18 0RF Discharge Orders: Discharge ED (Routine); Ordered 08/29/24 Ordered By: Albaro Bell Referrals: Genaro Blunt MD [Primary Care Provider] - 4-7 days Discharge Diet: Advance as tolerated Discharge Activity: Resume usual activity Patient Instructions: Leg Edema (ED) Print Language: French Coding Level of Care Code ED [employer] 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
[2024-08-29] MEDS: FUROsemide 10 mg/mL SDV 10mL 60 MG IVP (16:52)
[2024-08-29 16:58] LABS: Basophils % 0.4 %; Eosinophils # 0.3 10^3/uL (0.0-0.8); Eosinophils % 4.9 %; Hematocrit 37.6 % (37-53); Lymphocytes # 1.8 10^3/uL (0.8-4.8); Lymphocytes % 33.6 %; Mean Corpuscular HGB Conc 33.5 g/dL (30-55); Mean Corpuscular Hemoglobin 35.3 pg (27-33); Mean Corpuscular Volume 105.3 fl (82-101); Mean Platelet Volume 11.3 fL (7.4-10.4); Monocytes # 0.5 10^3/uL (0.2-0.9); Monocytes % 9.9 %; Neutrophils # 2.74 10^3/uL (1.8-7.7); Nucleated Red Blood Cells % 0 %; Platelet Count 173 10^3/cmm (157-399); Red Blood Count 3.57 10^6/uL (3.85-5.65); Red Cell Distribution Width 14.6 % (12.1-15.1); White Blood Count 5.36 10^3/uL (3.29-11.43)
[2024-08-29 17:24] LABS: Alanine Aminotransferase 33 U/L (0-41); Albumin Level 3.8 g/dL (3.5-5.2); Alkaline Phosphatase 78 U/L (40-130); Anion Gap 14.6 (5-19); Aspartate Amino Transferase 33 U/L (0-40); Blood Urea Nitrogen 15 mg/dL (6-20); Calcium 8.2 mg/dL (8.5-10.5); Carbon Dioxide 26 mmol/L (22-29); Chloride 106 mmol/L (98-107); Creatinine Clr Calc Pharmacy 143.9747; Globulin 2.3 g/dL (1.3-4.6); Glomerular Filtration Rate 170.8 mL/min (90-130); Glucose 134 mg/dL (65-115); NT Pro B Type Natriuretic Pept 198 pg/mL (0-125); Osmolality Calculated 299 mOsm/kg (285-295); Potassium 3.6 mmol/L (3.5-5.1); Sodium 143 mmol/L (136-145); Total Bilirubin 0.2 mg/dL (0.15-1.2); Total Protein 6.1 g/dL (6.6-8.7)
[2024-08-29 17:57] VITALS: BP 136/80; PULSE 77; RESP 18; O2SAT 96
== END 2024-08-29 17:58 | disposition home or self-care (01) ==
PROVIDERS: Emergency Provider Emergency Medicine; PCP Family Medicine
DX: R60.0 Localized edema (principal); Z79.02 Long term (current) use of antithrombotics/antiplatelets; Z79.82 Long term (current) use of aspirin; Z72.0 Tobacco use
CPT/HCPCS: 71045; 80053; 83880; 85025; 93005; 96374; 99285; J1940